=== PATIENT | female | born 1980 | race Caucasian/White ===

== ENCOUNTER → 2020-02-19 09:40 | Outpatient (BNVA) | payer SELFPAY | PROVIDERS: Family Provider Family Medicine; PCP Family Medicine; Visit Provider Family Medicine | DX: H65.191 Other acute nonsuppurative otitis media, right ear (principal); Z78.9 Other specified health status; L30.9 Dermatitis, unspecified; Z13.6 Encounter for screening for cardiovascular disorders; Z13.220 Encounter for screening for lipoid disorders; N95.1 Menopausal and female climacteric states; N92.6 Irregular menstruation, unspecified; Z13.1 Encounter for screening for diabetes mellitus | CPT/HCPCS: 80053; 80061; 83001; 83002; 84443; 88175 ==

== ENCOUNTER → 2020-09-23 13:39 | Outpatient (BNVA) | payer SELFPAY | PROVIDERS: Family Provider Family Medicine; PCP Family Medicine; Visit Provider Specialist | DX: G40.209 Localization-related (focal) (partial) symptomatic epilepsy and epileptic syndromes with complex partial seizures, not intractable, without status epilepticus (principal); G40.909 Epilepsy, unspecified, not intractable, without status epilepticus; F17.210 Nicotine dependence, cigarettes, uncomplicated | CPT/HCPCS: 99215 ==

== ENCOUNTER → 2020-09-24 10:34 | Outpatient (BNVA) | payer SELFPAY | PROVIDERS: Family Provider Family Medicine; PCP Family Medicine; Visit Provider Specialist | DX: G40.209 Localization-related (focal) (partial) symptomatic epilepsy and epileptic syndromes with complex partial seizures, not intractable, without status epilepticus (principal) | CPT/HCPCS: 80053; 80175; 85025; 86140 ==

== ENCOUNTER 2020-11-07 17:26 | Emergency (ER) | payer SELFPAY ==
[2020-11-07 17:31] VITALS: BP 110/78; PULSE 117; RESP 18; TEMP 36.9; O2SAT 99; BMI 22.4
--- NOTE | 2020-11-07 18:01 | XRR_ITS ---
PROCEDURE INFORMATION: Exam: XR Chest Exam date and time: 11/07/2020 6:23 PM Age: 39 years old Clinical indication: Patient HX: Seizure activity today; Additional info: Reduced breath sounds TECHNIQUE: Imaging protocol: XR of the chest. Views: 1 view. COMPARISON: CR Chest 1 [place] [id number] 07/11/2017 10:42 AM FINDINGS: Lungs: Unremarkable. No consolidation. Pleural spaces: Unremarkable. No pleural effusion. No pneumothorax. Heart/Mediastinum: Unremarkable. No cardiomegaly. Bones/joints: Unremarkable. XR/XR chest 1V portable [id number] IMPRESSION: No acute findings.
[2020-11-07 18:06] VITALS: BP 107/76; PULSE 106; RESP 18; O2SAT 99
--- NOTE | 2020-11-07 18:13 | ED_ITS ---
HPI - Seizure General: Chief Complaint: Seizure Stated Complaint: SEIZURE ACTIVITY Time Seen by Provider: 11/07/20 17:47 History of Present Illness: HPI Narrative: The patient is a 39-year old female with past medical history seizure disorder who comes to the ER after 3 seizures today. She had 1 generalized tonic-clonic seizure and later had to absent seizures. She is taking Zonegran 100 mg capsule she is supposed to be taking 4 a day however she is taking 3 a day because she when she takes 4 a day she does not eat or drink much and feels blank does not speak much. Over the past month she said she is lost nearly 20 pounds. Likely a side effect of the medication she says. She was taken off lamotrigine and slowly transition to the Zonegran a few weeks ago. She has not had a generalized seizure in months. Place: Home Associated symptoms: Deny chest pain or confusion Review of Systems General: Reports: 10 or more systems reviewed and unremarkable except in HPI and below Const: Denies: fatigue Eyes: Denies: change in vision, blurry vision or eye redness ENMT: Denies: throat pain, swelling of lips/tongue, ear or mastoid pain or nasal congestion Card: Denies: chest pain, palpitations, irregular heart rhythm, edema, dyspnea on exertion or orthopnea Resp: Denies: dyspnea, productive cough or non-productive cough GI: Denies: abdominal pain, diarrhea or GI cramping : Denies: flank pain, difficulty voiding, urinary frequency or urinary urgency Musc: Denies: neck pain, back pain, extremity pain, joint pain, joint redness, limited range of motion or muscle weakness Skin/Breast: Denies: rash, pruritus, erythema, skin pain or skin tenderness Neuro: Denies: headache(s), numbness in extremities, weakness in extremities, sensory changes, difficulty walking, dizziness, confusion or Slurred speech present Psych: Denies: anxiety or depression Endo: Denies: polyuria All/Imm: Denies: urticaria, throat swelling or tongue swelling PFSH ED PFSH: Medical History (Updated 11/07/20 @ 20:59 by Clayton Brennan MD) Complex partial epilepsy with generalization Surgical History H/O section Social History (Reviewed 10/16/20 @ 14:49 by SURESH Mays Smoking and tobacco status: current every day smoker cigarettes Packs smoked per day: 1 Quit status (tobacco): not considering quitting Alcohol intake: never History of recent travel: No Current gender identity: Female Female Reproductive History: Date of last menstrual period: 05/21/20 Spontaneous abortions: No Physical Exam Const: COMMON NORMALS: no acute distress, average body habitus, patient oriented x3, no limitations, healthy appearing, alert and well nourished GENERAL APPEARANCE: cooperative, comfortable, well kempt and well developed ORIENTATION/CONSCIOUSNESS: Yes awake, Yes oriented to person, Yes oriented to place and Yes oriented to time HENMT: COMMON NORMALS: normocephalic, external ears normal and Normal external nose present HEAD & SCALP: normal to inspection and normocephalic NOSE: Normal external nose present EXTERNAL EAR: Yes external ears normal MOUTH: Normal oral and palatal mucosa present THROAT: posterior oropharynx normal Eye: COMMON NORMALS: Equal, round and reactive pupils present and EOMs intact bilaterally GENERAL EYE: appearance normal, both eyes and all related struc tures PUPIL: Yes Equal, round and reactive pupils present Neck/C-Spine: COMMON NORMALS: full ROM, no lymphadenopathy, no meningeal signs and no JVD GENERAL: Yes normal visual inspection Lymph: LYMPHATIC: no lymphadenopathy noted Chest: COMMONS NORMALS: normal inspection of the chest and normal palpation of entire chest wall Resp: COMMON NORMALS: normal respiratory effort, No retractions, No use of accessory muscles, clear to auscultation bilaterally and percussion normal EFFORT & INSPECTION: Yes able to speak in complete sentences AUSCULTATION: clear to auscultation bilaterally PERCUSSION: percussion normal Cardio: COMMON NORMALS: no JVD, regular rate, regular rhythm, S1 normal heart sound present, S2 normal heart sound present and Peripheral pulses 2+ throughout RATE: regular rate RHYTHM: regular rhythm HEART SOUNDS: S1 normal heart sound present and S2 normal heart sound present PERIPHERAL PULSES: Peripheral pulses 2+ throughout GI: COMMON NORMALS: Normal to inspection, nondistended, normoactive bowel sounds present, Soft to palpation, non-tender and no masses INSPECTION: Yes normal to inspection PALPATION: Yes Soft to palpation : COMMON NORMALS: Yes no CVA tenderness BLADDER/KIDNEY EXAM: Yes no CVA tenderness Back/Pelvis: COMMON NORMALS: no CVA tenderness, thoracic and lumbar spine normal to inspection, no thoracic nor lumbar tenderness and thoraco-lumbar ROM normal Extremity: COMMON NORMALS: normal to inspection, full ROM, capillary refill normal, no joint enlargement and no pedal edema GENERAL: Yes normal exam except as noted Neuro: COMMON NORMALS: patient oriented x3, CN's II-XII intact bilaterally, moves all extremities, no focal motor deficits, no sensory deficits noted and gait normal SENSORIUM/ORIENTATION: Yes alert, Yes oriented to person, Yes oriented to place and Yes oriented to time MENINGEAL SIGNS: Yes no meningeal signs Psych: COMMON NORMALS: mental status grossly normal, Normal thought process present, cooperative, normal affect and speech normal APPEARANCE: Yes well kempt ATTITUDE: Yes calm SPEECH: Yes normal speech THOUGHT PROCESS: Normal thought process present Skin: COMMON NORMALS: no rashes or lesions noted GENERAL SKIN EXAM: no rashes or lesions noted Course Vital Signs: Vital signs: Vital Signs Temperature 98.4 F 11/07/20 17:31 Pulse Rate 80 11/07/20 20:19 Respiratory Rate 16 11/07/20 20:19 Blood Pressure 112/79 11/07/20 20:19 Pulse Oximetry 98 11/07/20 20:19 MDM - Seizure MDM Narrative: Medical decision making narrative: The patient likely had a seizure at home with 2 absence seizure's as well. Her white count is severely low at 1.3 and neutrophil count is severely low. She is neutropenic. This is a likely lesser known side effect of the Zonegran she has been on for the past few weeks. Her white count should pop up now that we will be discontinuing this medication and starting her back on the Lamictal XR 200 mg twice a day that she was taking a few weeks ago. She will call Dr. Spangler Monday to discuss further. ER with worsening symptoms at any time Lab Data: Labs: Lab Results 11/07/20 11/07/20 11/07/20 Range/Units 18:30 18:30 18:30 WBC 1.3 L (4.0-10.0) 10^3/ uL RBC 3.55 L (4.1-5.3) 10^6/u L Hgb 11.1 L (11.5-15.3) g/dL Hct 31.6 L (37.0-47.0) % MCV 89.0 (81-99) fL MCH 31.3 (28.0-34.0) pg MCHC 35.1 (30.0-36.0) g/dL RDW 14.6 (12.1-15.1) % Plt Count 100 L (130-400) 10^3/c mm MPV 12.0 H (7.4-10.4) fL Neut % (Auto) 11.4 % Lymph % (Auto) 46.6 % [place] % (Auto) 35.1 % Eos % (Auto) 2.3 % Baso % (Auto) 2.3 % Neut # (Auto) 0.15 L* (1.8-7.7) 10^3/u L Lymph # (Auto) 0.6 L (0.8-4.8) 10^3/u L [place] # (Auto) 0.5 (0.2-0.9) 10^3/u L Eos # (Auto) 0.0 (0.0-0.8) 10^3/u L Baso # (Auto) 0.0 (0.0-0.1) 10^3/u L Nucleated RBC % (a uto) 0 % Nucleated RBCs # 0.0 /100WBC Sodium 136 (136-145) mmol/L Potassium 3.4 L (3.5-5.1) mmol/L Chloride 105 (98-107) mmol/L Carbon Dioxide 21 L (22-29) mmol/L Anion Gap 13.4 (5-19) BUN 14 (6-20) mg/dL Creatinine 0.8 (0.5-0.9) mg/dL GFR Calculation 79.9 L (90-130) mL/min Glucose 99 (65-115) mg/dL Calculated Osmolal ity 283 L (285-295) mOsm/k g Lactate 0.6 (0.5-2.2) mmol/L Calcium 8.5 (8.5-10.5) mg/dL Total Bilirubin 0.7 (0.15-1.2) mg/dL AST 17 (0-32) U/L ALT 8 (0-33) U/L Alkaline Phosphata se 60 (35-105) IU/L Creatine Kinase 20 L (26-192) U/L Total Protein 6.6 (6.6-8.7) g/dL Albumin 4.3 (3.5-5.2) g/dL Globulin 2.3 (1.3-4.6) g/dL TSH 1.03 (0.27-4.20) uIU/ mL HCG, Qual (Negative) Urine Color (Yellow) Urine Appearance (CLEAR) Urine pH (5-7) Ur Specific Gravit y (1.005-1.030) Urine Protein (Negative) Urine Glucose (UA) (Normal) Urine Ketones (Negative) Urine Blood (Negative) Urine Nitrate (Negative) Urine Bilirubin (Negative) Urine Urobilinogen (Negative) mg/dL Ur Leukocyte Yulia ase (Negative) 11/07/20 11/07/20 Range/Units 18:30 18:32 WBC (4.0-10.0) 10^3/ uL RBC (4.1-5.3) 10^6/u L Hgb (11.5-15.3) g/dL Hct (37.0-47.0) % MCV (81-99) fL MCH (28.0-34.0) pg MCHC (30.0-36.0) g/dL RDW (12.1-15.1) % Plt Count (130-400) 10^3/c mm MPV (7.4-10.4) fL Neut % (Auto) % Lymph % (Auto) % [place] % (Auto) % Eos % (Auto) % Baso % (Auto) % Neut # (Auto) (1.8-7.7) 10^3/u L Lymph # (Auto) (0.8-4.8) 10^3/u L [place] # (Auto) (0.2-0.9) 10^3/u L Eos # (Auto) (0.0-0.8) 10^3/u L Baso # (Auto) (0.0-0.1) 10^3/u L Nucleated RBC % (a uto) % Nucleated RBCs # /100WBC Sodium (136-145) mmol/L Potassium (3.5-5.1) mmol/L Chloride (98-107) mmol/L Carbon Dioxide (22-29) mmol/L Anion Gap (5-19) BUN (6-20) mg/dL Creatinine (0.5-0.9) mg/dL GFR Calculation (90-130) mL/min Glucose (65-115) mg/dL Calculated Osmolal ity (285-295) mOsm/k g Lactate (0.5-2.2) mmol/L Calcium (8.5-10.5) mg/dL Total Bilirubin (0.15-1.2) mg/dL AST (0-32) U/L ALT (0-33) U/L Alkaline Phosphata se (35-105) IU/L Creatine Kinase (26-192) U/L Total Protein (6.6-8.7) g/dL Albumin (3.5-5.2) g/dL Globulin (1.3-4.6) g/dL TSH (0.27-4.20) uIU/ mL HCG, Qual Negative (Negative) Urine Color Yellow (Yellow) Urine Appearance Clear (CLEAR) Urine pH 6.5 (5-7) Ur Specific Gravit y 1.010 (1.005-1.030) Urine Protein Neg (Negative) Urine Glucose (UA) Norm (Normal) Urine Ketones 1+ H (Negative) Urine Blood Neg (Negative) Urine Nitrate Negative (Negative) Urine Bilirubin Neg (Negative) Urine Urobilinogen 1 H (Negative) mg/dL Ur Leukocyte Yulia ase Negative (Negative) Discharge Plan Discharge Patient Disposition: Home Clinical Impression: Epileptic seizure, Leukopenia, Neutropenia Condition: Stable Prescriptions: New Lamictal XR 200 mg tablet extended release 24hr 200 mg PO DAILY Qty: 30 RF: 0 Discontinued lamotrigine [Lamictal XR] 100 mg tablet extended release 24hr 100 mg PO DAILY 14 Days Qty: 14 RF: 0 zonisamide [Zonegran] 100 mg capsule 400 mg PO DAILY Qty: 120 RF: 1 No Action lorazepam [Lorazepam Intensol] 2 mg/mL concentrate 2 mg PO .PRN PRN (Reason: seizure) Qty: 30 RF: 1 Discharge Orders: Discharge ED (Routine); Ordered 11/07/20 Ordered By: Clayton Brennan Referrals: Virginia Meyer MD [Primary Care Provider] - Discharge Diet: Advance as tolerated Discharge Activity: Resume usual activity Patient Instructions: Opioid Safety Activity Restrictions/Additional Instructions: You have had a seizure today. Also your white count is very low at 1.4 and your neutrophils are severely low. This is possibly a lesser known side effect of the Zonegran. I have discussed with Dr. Spangler and we have decided to discontinue that medication and start you back on the Lamictal XR 200 mg taken twice a day as you were taking a few weeks ago. Return to the ER with worsening symptoms otherwise call Dr. Spangler Monday to discuss further. Coding Level of Care Code ED Bar Roller for Victoria Fwd Exam Comprehensive
--- NOTE | 2020-11-07 18:21 | CTR_ITS ---
PROCEDURE INFORMATION: Exam: CT Head Without Contrast Exam date and time: 11/07/2020 6:37 PM Age: 39 years old Clinical indication: Other: Seizures; Additional info: Seizure TECHNIQUE: Imaging protocol: Computed tomography of the head without contrast. Radiation optimization: All CT scans at this facility use at least one of these dose optimization techniques: automated exposure control; mA and/or kV adjustment per patient size (includes targeted exams where dose is matched to clinical indication); or iterative reconstruction. COMPARISON: CT head wo con* [id number] 07/04/2017 3:49 PM RADIATION DOSE METRICS: Total DLP (mGy-cm): 794.22 FINDINGS: Brain: Normal. No hemorrhage. Unremarkable white matter. No mass effect. Cerebral ventricles: No ventriculomegaly. Bones/joints: Unremarkable. No acute fracture. Paranasal sinuses: Visualized sinuses are unremarkable. No fluid levels. Mastoid air cells: Visualized mastoid air cells are well aerated. Soft tissues: Unremarkable. CT/CT head wo con* [id number] IMPRESSION: No acute intracranial abnormality. Radiation Dose CTDIVOL = (mGy): DLP = 794.22 (mGy-cm)
--- NOTE | 2020-11-07 18:29 | PC.NURSE ---
seizure precaution applied
[2020-11-07] MEDS: sodium chloride 0.9% 1,000 ML 999 ML IV (18:44)
[2020-11-07 18:46] LABS: Basophils % 2.3 %; Eosinophils % 2.3 %; Hematocrit 31.6 % (37.0-47.0); Hemoglobin 11.1 g/dL (11.5-15.3); Lymphocytes # 0.6 10^3/uL (0.8-4.8); Lymphocytes % 46.6 %; Mean Corpuscular HGB Conc 35.1 g/dL (30.0-36.0); Mean Corpuscular Hemoglobin 31.3 pg (28.0-34.0); Monocytes # 0.5 10^3/uL (0.2-0.9); Monocytes % 35.1 %; Neutrophils % 11.4 %; Nucleated Red Blood Cells % 0 %; Platelet Count 100 10^3/cmm (130-400); Red Blood Count 3.55 10^6/uL (4.1-5.3); Red Cell Distribution Width 14.6 % (12.1-15.1); White Blood Count 1.3 10^3/uL (4.0-10.0)
[2020-11-07 18:52] LABS: Add Urine Microscopic? NO; Charge for UA Resulting for Rev
[2020-11-07 18:55] LABS: Bilirubin Urine Neg (Negative); Blood Urine Neg (Negative); Glucose Urine UA Norm (Normal); Ketones Urine 1+ (Negative); Leukocyte Esterase Urine Negative (Negative); Nitrate Urine Negative (Negative); Protein Urine Neg (Negative); Urine Appearance Clear (CLEAR); Urine Color Yellow (Yellow); Urobilinogen Urine 1 mg/dL (Negative); pH Urine 6.5 (5-7)
[2020-11-07 19:00] LABS: Lactate (Lactic Acid level) 0.6 mmol/L (0.5-2.2); Neutrophils # 0.15 10^3/uL (1.8-7.7)
[2020-11-07 19:02] LABS: HCG, Serum Qual Negative (Negative)
[2020-11-07 19:11] LABS: Alanine Aminotransferase 8 U/L (0-33); Albumin Level 4.3 g/dL (3.5-5.2); Alkaline Phosphatase 60 IU/L (35-105); Anion Gap 13.4 (5-19); Aspartate Amino Transferase 17 U/L (0-32); Blood Urea Nitrogen 14 mg/dL (6-20); Calcium 8.5 mg/dL (8.5-10.5); Carbon Dioxide 21 mmol/L (22-29); Chloride 105 mmol/L (98-107); Creatine Phosphokinase 20 U/L (26-192); Globulin 2.3 g/dL (1.3-4.6); Glomerular Filtration Rate 79.9 mL/min (90-130); Glucose 99 mg/dL (65-115); Osmolality Calculated 283 mOsm/kg (285-295); Potassium 3.4 mmol/L (3.5-5.1); Sodium 136 mmol/L (136-145); Thyroid Stimulating Hormone 1.03 uIU/mL (0.27-4.20); Total Bilirubin 0.7 mg/dL (0.15-1.2); Total Protein 6.6 g/dL (6.6-8.7)
[2020-11-07 20:19] VITALS: BP 112/79; PULSE 80; RESP 16; O2SAT 98
[2020-11-07] MEDS: lamoTRIgine 100 mg Tablet 200 MG PO (21:32)
[2020-11-07 21:52] VITALS: BP 106/72; PULSE 83; RESP 16; O2SAT 97
== END 2020-11-07 21:54 | disposition home or self-care (01) ==
PROVIDERS: Emergency Provider Family Medicine; PCP Family Medicine
DX: G40.909 Epilepsy, unspecified, not intractable, without status epilepticus (principal); D70.9 Neutropenia, unspecified; F17.210 Nicotine dependence, cigarettes, uncomplicated
CPT/HCPCS: 70450; 71045; 80053; 81003; 82550; 83605; 84443; 84703; 85025; 96360; 99284; J7030

== ENCOUNTER → 2020-11-12 11:46 | Outpatient (BNVA) | payer SELFPAY | PROVIDERS: PCP Family Medicine; Visit Provider Family Medicine | DX: J32.9 Chronic sinusitis, unspecified (principal); D70.9 Neutropenia, unspecified; D70.2 Other drug-induced agranulocytosis; G40.209 Localization-related (focal) (partial) symptomatic epilepsy and epileptic syndromes with complex partial seizures, not intractable, without status epilepticus | CPT/HCPCS: 85007; 85027 ==

== ENCOUNTER → 2020-11-18 10:22 | Outpatient (BNVA) | payer SELFPAY | PROVIDERS: PCP Family Medicine; Visit Provider Family Medicine | DX: D72.819 Decreased white blood cell count, unspecified (principal); D70.2 Other drug-induced agranulocytosis; G40.209 Localization-related (focal) (partial) symptomatic epilepsy and epileptic syndromes with complex partial seizures, not intractable, without status epilepticus | CPT/HCPCS: 85025 ==

== ENCOUNTER → 2020-12-01 15:00 | Outpatient (BNVA) | payer SELFPAY | PROVIDERS: PCP Family Medicine; Visit Provider Family Medicine | DX: Z12.4 Encounter for screening for malignant neoplasm of cervix (principal); N92.1 Excessive and frequent menstruation with irregular cycle; Z72.0 Tobacco use; K64.4 Residual hemorrhoidal skin tags; N76.0 Acute vaginitis; B96.89 Other specified bacterial agents as the cause of diseases classified elsewhere | CPT/HCPCS: 88175 ==

== ENCOUNTER → 2020-12-16 13:41 | Outpatient (BNVA) | payer SELFPAY | PROVIDERS: PCP Family Medicine; Visit Provider Specialist | DX: G40.209 Localization-related (focal) (partial) symptomatic epilepsy and epileptic syndromes with complex partial seizures, not intractable, without status epilepticus (principal); F17.210 Nicotine dependence, cigarettes, uncomplicated | CPT/HCPCS: 99214 ==

== ENCOUNTER → 2020-12-28 13:47 | Outpatient (BNVA) | payer SELFPAY | PROVIDERS: PCP Family Medicine; Visit Provider Obstetrics & Gynecology | DX: N92.1 Excessive and frequent menstruation with irregular cycle (principal); D61.818 Other pancytopenia | CPT/HCPCS: 84443; 85025; 88305 ==

== ENCOUNTER → 2020-12-30 13:27 | Outpatient (BNVA) | payer SELFPAY | PROVIDERS: PCP Family Medicine; Visit Provider Obstetrics & Gynecology | DX: N92.1 Excessive and frequent menstruation with irregular cycle (principal) | CPT/HCPCS: 76830 ==

== ENCOUNTER → 2021-01-18 11:09 | Outpatient (BNVA) | payer SELFPAY | PROVIDERS: PCP Family Medicine; Visit Provider Obstetrics & Gynecology | DX: Z30.9 Encounter for contraceptive management, unspecified (principal); Z30.430 Encounter for insertion of intrauterine contraceptive device | CPT/HCPCS: 81025 ==

== ENCOUNTER → 2021-02-19 14:47 | Outpatient (BNVA) | payer SELFPAY | PROVIDERS: PCP Family Medicine; Visit Provider Obstetrics & Gynecology | DX: N89.8 Other specified noninflammatory disorders of vagina (principal); Z30.431 Encounter for routine checking of intrauterine contraceptive device | CPT/HCPCS: 87481; 87512; 87798; 87799 ==

== ENCOUNTER → 2021-06-14 15:11 | Outpatient (BNVA) | payer MEDICAID, SELFPAY | PROVIDERS: PCP Family Medicine; Visit Provider Specialist | DX: G40.209 Localization-related (focal) (partial) symptomatic epilepsy and epileptic syndromes with complex partial seizures, not intractable, without status epilepticus (principal); G43.709 Chronic migraine without aura, not intractable, without status migrainosus | CPT/HCPCS: 99214 ==

== ENCOUNTER → 2021-08-20 11:56 | Outpatient (BNVA) | payer MEDICAID, SELFPAY | PROVIDERS: PCP Family Medicine; Visit Provider Emergency Medicine | DX: I63.9 Cerebral infarction, unspecified (principal); R05.9 Cough, unspecified | CPT/HCPCS: 71046 ==

== ENCOUNTER 2021-08-23 15:14 | Outpatient (CLI) | payer MEDICAID, SELFPAY ==
[2021-08-23 16:32] LABS: INR 1.01 (0.8-1.2)
[2021-08-25 22:53] LABS: PTT-LA 64 sec (< OR = 40); Prothrombin Time 81 sec (< OR = 45)
[2021-08-26 13:09] LABS: Beta 2 Glycoprotein IGA 11.6 U/mL (<20.0); Beta 2 Glycoprotein IGG 49.7 U/mL (<20.0); Beta 2 Glycoprotein IGM >112.0 U/mL (<20.0)
[2021-08-27 01:08] LABS: B2 Glycoprotein I IGM AB >112.0 U/mL; Beta 2 Glycoprotein I IGA AB 13.6 U/mL; CARDIOLIPIN AB (IGA) 16.2 APL-U/mL; CARDIOLIPIN AB (IGG) 37.9 GPL-U/mL; CARDIOLIPIN AB (IGM) >112.0 MPL-U/mL
== END 2021-08-23 15:15 | disposition home or self-care (01) ==
PROVIDERS: PCP Family Medicine; Visit Provider Specialist
DX: D68.61 Antiphospholipid syndrome (principal); I63.531 Cerebral infarction due to unspecified occlusion or stenosis of right posterior cerebral artery
CPT/HCPCS: 36415; 85610; 85613; 85730; 86146; 86147

== ENCOUNTER → 2021-08-30 00:01 | Outpatient (BNVA) | payer SELFPAY | PROVIDERS: PCP Family Medicine; Referring Provider Specialist; Visit Provider Specialist | DX: I63.531 Cerebral infarction due to unspecified occlusion or stenosis of right posterior cerebral artery (principal) | CPT/HCPCS: 85610 ==

== ENCOUNTER → 2021-09-07 12:48 | Outpatient (BNVA) | payer MEDICAID, SELFPAY | PROVIDERS: PCP Family Medicine; Visit Provider Emergency Medicine | DX: D68.61 Antiphospholipid syndrome (principal); Z79.01 Long term (current) use of anticoagulants; I10 Essential (primary) hypertension; Z86.73 Personal history of transient ischemic attack (TIA), and cerebral infarction without residual deficits | CPT/HCPCS: 80053; 80061; 85025 ==

== ENCOUNTER → 2021-09-15 14:45 | Outpatient (BNVA) | payer SELFPAY | PROVIDERS: PCP Family Medicine; Visit Provider Family Medicine | DX: Z51.81 Encounter for therapeutic drug level monitoring (principal); Z79.01 Long term (current) use of anticoagulants | CPT/HCPCS: 85610 ==

== ENCOUNTER → 2021-09-29 14:07 | Outpatient (BNVA) | payer MEDICAID, SELFPAY | PROVIDERS: PCP Family Medicine; Visit Provider Family Medicine | DX: Z79.01 Long term (current) use of anticoagulants (principal) | CPT/HCPCS: 85610 ==

== ENCOUNTER → 2021-10-18 15:02 | Outpatient (BNVA) | payer MEDICAID, SELFPAY | PROVIDERS: PCP Family Medicine; Visit Provider Family Medicine | DX: Z79.01 Long term (current) use of anticoagulants (principal); D68.61 Antiphospholipid syndrome | CPT/HCPCS: 85610 ==

== ENCOUNTER → 2021-11-02 14:06 | Outpatient (BNVA) | payer SELFPAY | PROVIDERS: PCP Family Medicine; Visit Provider Family Medicine | DX: Z79.01 Long term (current) use of anticoagulants (principal) | CPT/HCPCS: 85610 ==

== ENCOUNTER → 2021-11-23 15:25 | Outpatient (BNVA) | payer MEDICAID, SELFPAY | PROVIDERS: PCP Family Medicine; Visit Provider Family Medicine | DX: Z79.01 Long term (current) use of anticoagulants (principal) | CPT/HCPCS: 85610 ==

== ENCOUNTER → 2021-12-21 14:43 | Outpatient (BNVA) | payer MEDICAID, SELFPAY | PROVIDERS: PCP Family Medicine; Visit Provider Family Medicine | DX: Z79.01 Long term (current) use of anticoagulants (principal) | CPT/HCPCS: 85610 ==

== ENCOUNTER → 2021-12-27 14:19 | Outpatient (BNVA) | payer MEDICAID, SELFPAY | PROVIDERS: PCP Family Medicine; Visit Provider Family Medicine | DX: I10 Essential (primary) hypertension (principal); F32.1 Major depressive disorder, single episode, moderate; Z79.01 Long term (current) use of anticoagulants | CPT/HCPCS: 85610 ==

== ENCOUNTER 2022-01-04 15:36 | Emergency (ER) | payer MEDICAID, SELFPAY ==
[2022-01-04 16:06] VITALS: BP 115/72; PULSE 76; RESP 16; TEMP 37.2; O2SAT 99; BMI 25.0
--- NOTE | 2022-01-04 16:24 | CTR_ITS ---
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 Exam focused on the arteries. 3D rendering (Not supervised by radiologist): MIP and/or 3D reconstructed images were created by the technologist. Radiation optimization: All CT scans at this facility use at least one of these dose optimization techniques: automated exposure control; mA and/or kV adjustment per patient size (includes targeted exams where dose is matched to clinical indication); or iterative reconstruction. Contrast material: OMNIPAQUE 350; Contrast volume: 80 ml; Contrast route: INTRAVENOUS (IV); COMPARISON: CT head w con [id number] 08/13/2021 4:40 PM RADIATION DOSE METRICS: Total DLP (mGy-cm): 1533.95 FINDINGS: ANTERIOR CIRCULATION: Right internal carotid artery: Unremarkable. Intracranial segment is patent with no significant stenosis. No aneurysm. Right middle cerebral artery: Unremarkable. No occlusion or significant stenosis. No aneurysm. Right anterior cerebral artery: Unremarkable. No occlusion or significant stenosis. No aneurysm. Left internal carotid artery: Unremarkable. Intracranial segment is patent with no significant stenosis. No aneurysm. Left middle cerebral artery: Unremarkable. No occlusion or significant stenosis. No aneurysm. Left anterior cerebral artery: Unremarkable. No occlusion or significant stenosis. No aneurysm. POSTERIOR CIRCULATION: Right vertebral artery: Unremarkable. No occlusion or significant stenosis. No aneurysm. Left vertebral artery: Unremarkable. No occlusion or significant stenosis. No aneurysm. Basilar artery: Unremarkable. No occlusion or significant stenosis. No aneurysm. Right posterior cerebral artery: Unremarkable. No occlusion or significant stenosis. No aneurysm. Left posterior cerebral artery: origin of the left posterior cerebral artery. No occlusion or aneurysm. Cavernous Sinus: Dural venous sinuses are patent. Brain: Focal encephalomalacia in the right occipital lobe consistent with a chronic infarct. No pathologic enhancement of the brain. Cerebral ventricles: No ventriculomegaly. Bones/joints: Unremarkable. No acute fracture. Soft tissues: Unremarkable. 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 3D rendering (Not supervised by radiologist): MIP and/or 3D reconstructed images were created by the technologist. Radiation optimization: All CT scans at this facility use at least one of these dose optimization techniques: automated exposure control; mA and/or kV adjustment per patient size (includes targeted exams where dose is matched to clinical indication); or iterative reconstruction. Contrast material: OMNIPAQUE 350; Contrast volume: 80 ml; Contrast route: INTRAVENOUS (IV); COMPARISON: CT head w con [id number] 08/13/2021 4:40 PM RADIATION DOSE METRICS: Total DLP (mGy-cm): 1522.96 FINDINGS: Right common carotid artery: No stenosis. No dissection or occlusion. Right internal carotid artery: No stenosis of the extracranial segment. No dissection or occlusion. Right external carotid artery: No occlusion or stenosis of the origin. Left common carotid artery: No stenosis. No dissection or occlusion. Left internal carotid artery: No stenosis of the extracranial segment. No dissection or occlusion. Left external carotid artery: No occlusion or stenosis of the origin. Right vertebral artery: No stenosis. No dissection or occlusion. Left vertebral artery: No stenosis. No dissection or occlusion. Soft tissues: Soft tissues in the neck and thoracic inlet are unremarkable. Bones/joints: Bones are unremarkable. Lungs: Lung apices are clear. CT/CT angio headneck* [id number] IMPRESSION: 1. No arterial stenosis, occlusion or aneurysm. 2. Chronic infarct in the right occipital lobe. IMPRESSION: No arterial stenosis, occlusion or dissection. REFERENCES: NASCET CRITERIA. The degree of internal carotid artery stenosis is based on NASCET criteria. Normal is no stenosis. Mild is less than 50% stenosis. Moderate is 50-69% stenosis. Severe is 70% to 99% stenosis. Total occlusion is no detectable patent lumen.
--- NOTE | 2022-01-04 16:26 | ED_ITS ---
HPI - Headache General: Chief Complaint: Headache Stated Complaint: Head pain, neck pain Time Seen by Provider: 01/04/22 16:20 History of Present Illness: 41-year-old who is on Coumadin and has history of previous stroke with left-sided vision loss presents due to headache. States th is started yesterday. It was gradual to maximal intensity. Denies any focal weakness numbness or tingling. Denies any new vision or hearing change or vertigo. Denies any trauma. States pain is lateral and she has no midline neck pain. Denies any fever or rash. Review of Systems Narrative: - CONSTITUTIONAL: Denies weight loss, fever and chills. - HEENT: Denies changes in vision and hearing. - RESPIRATORY: Denies SOB and cough. - CV: Denies palpitations and CP. - GI: Denies abdominal pain, nausea, vomiting and diarrhea. - : Denies dysuria and urinary frequency. - MSK: Denies myalgia and joint pain. - SKIN: Denies rash and pruritus. - NEUROLOGICAL: As above - PSYCHIATRIC: Denies suicidal ideation [facility] ED PFSH: Medical History Anticoagulated with warfarin Anticoagulation goal of INR 2 to 3 Complex partial epilepsy with generalization CVA (cerebral vascular accident) HTN (hypertension) Surgical History H/O section H/O dilation and curettage x2 - 2004, 2007 Family History Father Cancer brain cancer - Diabetes Family/Other Thyroid disease x2 Maternal Aunt - unsure Denies family history of Ovarian cyst Clotting disorder Hyperlipidemia Chronic kidney disease (CKD) Suicide Bleeding disorder Hypertension Stroke Social History Smoking and tobacco status: current every day smoker Female Reproductive History: Date of last menstrual period: 05/21/20 Spontaneous abortions: No Physical Exam Narrative: EXAM NARRATIVE: - GENERAL: Alert and oriented x 3. No acute distress. Well-nourished. - EYES: EOMI. Anicteric. - HENT: Atraumatic, no C-spine tenderness. Moist mucous membranes. No scleral icterus. No cervical lymphadenopathy. - LUNGS: Clear to auscultation bilaterally. No accessory muscle use. Equal lung sounds bilaterally. No respiratory distress. - CARDIOVASCULAR: Regular rate and rhythm. No murmur. No JVD. - ABDOMEN: Soft, non-tender and non-distended. Negative CVA tenderness bilaterally, no rebound or guarding, negative Espinoza sign. No palpable masses. - EXTREMITIES: No edema. Non-tender. - SKIN: No rashes or lesions. Warm. - NEUROLOGIC: No myosis or proptosis. No carotid thrills or bruits. No meningismus or focal neurological deficits. CN II-XII grossly intact except for left-sided visual deficit which is chronic - PSYCHIATRIC: Cooperative. Appropriate mood and affect. Course Vital Signs: Vital signs: Vital Signs Temperature 98.9 F 01/04/22 16:06 Pulse Rate 76 01/04/22 16:06 Respiratory Rate 16 01/04/22 16:06 Blood Pressure 115/72 01/04/22 16:06 Pulse Oximetry 99 01/04/22 16:06 [facility] - Headache Medical Decision Making 41-year-old male with history of previous stroke presents due to headache. She has chronic left-sided visual deficit but no acute deficit today. No meningismus. CTA does not reveal any new occlusion hemorrhage or other acute abnormality. Lab work is unremarkable except for INR which is subtherapeutic. She was instructed to follow-up with warfarin clinic tomorrow for adjusting the dose of her warfarin. Headache itself improved with migraine cocktail. There is no meningismus or focal infectious finding. This time not believe LP is warranted. At this time I believe patient would be safe for discharge and outpatient follow-up. Return precautions provided. Plan was reviewed with the patient who expressed understanding. Questions answered. Patient will follow up with PCP. Patient discharged in stable condition. Lab Data : 01/04/22 16:40 01/04/22 16:40 Radiology Impressions Head/Neck CTA 01/04/22 16:24 IMPRESSION: 1. No arterial stenosis, occlusion or aneurysm. 2. Chronic infarct in the right occipital lobe. IMPRESSION: No arterial stenosis, occlusion or dissection. REFERENCES: NASCET CRITERIA. The degree of internal carotid artery stenosis is based on NASCET criteria. Normal is no stenosis. Mild is less than 50% stenosis. Moderate is 50-69% stenosis. Severe is 70% to 99% stenosis. Total occlusion is no detectable patent lumen. Laboratory Results WBC 7.6 10^3/uL (4.0-10.0) 01/04/22 16:40 RBC 4.44 10^6/uL (4.1-5.3) 01/04/22 16:40 Hgb 14.3 g/dL (11.5-15.3) 01/04/22 16:40 Hct 40.7 % (37.0-47.0) 01/04/22 16:40 MCV 91.7 fl (81-99) 01/04/22 16:40 MCH 32.2 pg (28.0-34.0) 01/04/22 16:40 MCHC 35.1 g/dL (30.0-36.0) 01/04/22 16:40 RDW 12.6 % (12.1-15.1) 01/04/22 16:40 Plt Count 206 10^3/cmm (130-400) 01/04/22 16:40 MPV 11.7 fL (7.4-10.4) H 01/04/22 16:40 Neut % (Auto) 77.3 % 01/04/22 16:40 Lymph % (Auto) 14.5 % 01/04/22 16:40 [place] % (Auto) 5.6 % 01/04/22 16:40 Eos % (Auto) 1.4 % 01/04/22 16:40 Baso % (Auto) 0.7 % 01/04/22 16:40 Neut # (Auto) 5.90 10^3/uL (1.8-7.7) 01/04/22 16:40 Lymph # (Auto) 1.1 10^3/uL (0.8-4.8) 01/04/22 16:40 [place] # (Auto) 0.4 10^3/uL (0.2-0.9) 01/04/22 16:40 Eos # (Auto) 0.1 10^3/uL (0.0-0.8) 01/04/22 16:40 Baso # (Auto) 0.1 10^3/uL (0.0-0.1) 01/04/22 16:40 Nucleated RBC % (auto) 0 % 01/04/22 16:40 Nucleated RBCs # 0.0 /100WBC 01/04/22 16:40 PT 16.90 SECONDS (12.1-14.9) H 01/04/22 17:20 INR 1.34 (0.8-1.2) H 01/04/22 17:20 APTT 53.3 SECONDS (23.9-36.7) H 01/04/22 17:20 Sodium 138 mmol/L (136-145) 01/04/22 16:40 Potassium 4.3 mmol/L (3.5-5.1) 01/04/22 16:40 Chloride 102 mmol/L (98-107) 01/04/22 16:40 Carbon Dioxide 26 mmol/L (22-29) 01/04/22 16:40 Anion Gap 14.3 (5-19) 01/04/22 16:40 BUN 8 mg/dL (6-20) 01/04/22 16:40 Creatinine 0.9 mg/dL (0.5-0.9) 01/04/22 16:40 GFR Calculation 69.0 mL/min (90-130) L 01/04/22 16:40 Glucose 84 mg/dL (65-115) 01/04/22 16:40 Calculated Osmolality 284 mOsm/kg (285-295) L 01/04/22 16:40 Calcium 8.7 mg/dL (8.5-10.5) 01/04/22 16:40 Total Bilirubin 0.5 mg/dL (0.15-1.2) 01/04/22 16:40 AST 16 U/L (0-32) 01/04/22 16:40 ALT 11 U/L (0-33) 01/04/22 16:40 Alkaline Phosphatase 97 IU/L (35-105) 01/04/22 16:40 Total Protein 7.8 g/dL (6.6-8.7) 01/04/22 16:40 Albumin 4.6 g/dL (3.5-5.2) 01/04/22 16:40 Globulin 3.2 g/dL (1.3-4.6) 01/04/22 16:40 Discharge Plan Discharge Condition: Stable Prescriptions: No Action Kyleena 17.5 mcg/24 hrs (5 yrs) 19.5 mg intrauterine device See Rx Instructions .ROUTE .COMPLEX 0RF Rx Instructions: intrauterinely DIRECTED atorvastatin 40 mg tablet 40 mg PO DAILY Qty: 90 1RF aspirin 325 mg tablet 81 mg PO DAILY 0RF warfarin 5 mg tablet 5 mg PO DAILY Qty: 90 1RF Protocol: Dose Management Condition: Monday Dose/Route: 5 mg Instruction: 1 x 5 mg tablet Condition: Monday Dose/Route: 2.5 mg Instruction: 0.5 x 5 mg tablets Condition: Monday Dose/Route: 5 mg Instruction: 1 x 5 mg tablet Condition: Monday Dose/Route: 5 mg Instruction: 1 x 5 mg tablet Condition: Dose/Route: 2.5 mg Instruction: 0.5 x 5 mg tablets Condition: Monday Dose/Route: 5 mg Instruction: 1 x 5 mg tablet Condition: Monday Dose/Route: 5 mg Instruction: 1 x 5 mg tablet Protocol Text: Adjustment Start Date: Monday12/27/21 INR Value: 22.4 Seconds INR Date: 12/27/21 Recheck Date: 01/10/22 Rx Instructions: as directed by losartan 25 mg tablet 25 mg PO DAILY 90 Days Qty: 90 0RF sertraline 25 mg tablet 25 mg PO DAILY 30 Days Qty: 30 2RF Lorazepam Intensol 2 mg/mL concentrate See Rx Instructions .ROUTE .COMPLEX PRN (Reason: seizure) 0RF Rx Instructions: 2 mg orally AT ONSET OF SIEZURE - MAX 4 MG A DAY Lamictal XR 200 mg tablet extended release 24hr 200 mg PO BID 0RF Referrals: Virginia Meyer MD [Primary Care Provider] - Coding Level of Care Code ED Senior Solutions Consultant for Victoria Arcos
[2022-01-04 16:57] LABS: Basophils # 0.1 10^3/uL (0.0-0.1); Basophils % 0.7 %; Eosinophils # 0.1 10^3/uL (0.0-0.8); Eosinophils % 1.4 %; Hematocrit 40.7 % (37.0-47.0); Hemoglobin 14.3 g/dL (11.5-15.3); Lymphocytes # 1.1 10^3/uL (0.8-4.8); Lymphocytes % 14.5 %; Mean Corpuscular HGB Conc 35.1 g/dL (30.0-36.0); Mean Corpuscular Hemoglobin 32.2 pg (28.0-34.0); Mean Corpuscular Volume 91.7 fl (81-99); Mean Platelet Volume 11.7 fL (7.4-10.4); Monocytes # 0.4 10^3/uL (0.2-0.9); Monocytes % 5.6 %; Neutrophils % 77.3 %; Nucleated Red Blood Cells % 0 %; Platelet Count 206 10^3/cmm (130-400); Red Blood Count 4.44 10^6/uL (4.1-5.3); Red Cell Distribution Width 12.6 % (12.1-15.1); White Blood Count 7.6 10^3/uL (4.0-10.0)
[2022-01-04] MEDS: iohexol 350 mg/mL 100 mL Btl IV (17:03)
[2022-01-04 17:06] LABS: Albumin Level 4.6 g/dL (3.5-5.2); Alkaline Phosphatase 97 IU/L (35-105); Blood Urea Nitrogen 8 mg/dL (6-20); Calcium 8.7 mg/dL (8.5-10.5); Carbon Dioxide 26 mmol/L (22-29); Chloride 102 mmol/L (98-107); Globulin 3.2 g/dL (1.3-4.6); Glucose 84 mg/dL (65-115); Osmolality Calculated 284 mOsm/kg (285-295); Sodium 138 mmol/L (136-145); Total Bilirubin 0.5 mg/dL (0.15-1.2); Total Protein 7.8 g/dL (6.6-8.7)
[2022-01-04 17:10] LABS: Anion Gap 14.3 (5-19); Aspartate Amino Transferase 16 U/L (0-32); Potassium 4.3 mmol/L (3.5-5.1)
[2022-01-04 17:11] LABS: Alanine Aminotransferase 11 U/L (0-33)
[2022-01-04] MEDS: metoclopramide 5 mg/mL SDV 2 mL 10 MG IVP (17:30)
[2022-01-04] MEDS: sodium chloride 0.9% 250 ML IV (17:30)
[2022-01-04] MEDS: diphenhydrAMINE 50 mg/mL SDV 1mL 25 MG IVP (17:30)
[2022-01-04 17:45] LABS: INR 1.34 (0.8-1.2)
[2022-01-04 17:46] LABS: Partial Thromboplastin Time 53.3 SECONDS (23.9-36.7)
[2022-01-04 18:23] VITALS: BP 103/72; PULSE 71; RESP 16; O2SAT 99
== END 2022-01-04 18:23 | disposition home or self-care (01) ==
PROVIDERS: Emergency Provider Emergency Medicine; PCP Family Medicine
DX: R51.9 Headache, unspecified (principal); Z79.82 Long term (current) use of aspirin; Z79.01 Long term (current) use of anticoagulants; Z86.73 Personal history of transient ischemic attack (TIA), and cerebral infarction without residual deficits; I10 Essential (primary) hypertension; F17.210 Nicotine dependence, cigarettes, uncomplicated
CPT/HCPCS: 70496; 70498; 80053; 85025; 85610; 85730; 96361; 96374; 96375; 99284; J1200; J2765; J7050; Q9967

== ENCOUNTER → 2022-01-12 13:40 | Outpatient (BNVA) | payer BC, SELFPAY | PROVIDERS: PCP Family Medicine; Visit Provider Family Medicine | DX: Z79.01 Long term (current) use of anticoagulants (principal) | CPT/HCPCS: 85610 ==

== ENCOUNTER 2022-01-13 15:10 | Emergency (ER) | payer BC, MEDICAID, SELFPAY ==
[2022-01-13 15:36] VITALS: BP 118/82; PULSE 76; RESP 14; TEMP 36.3; O2SAT 98
--- NOTE | 2022-01-13 17:18 | W.ED.ABDPA2 ---
HPI - Abdominal Pain General: Chief Complaint: Abdominal Pain Stated Complaint: abd pain/black stool Time Seen by Provider: 01/13/22 17:14 History of Present Illness: 41-year-old female comes in today for complaints of some epigastric abdominal pain starting last night. Patient did note some dark stools today. Patient reports no previous history of abdominal problems. Patient does have a history of a clotting disorder. Patient does take warfarin and aspirin routinely. Associated Symptoms: Reports change in stool character and nausea; Denies diarrhea, fever(s) and vomiting Related Data: Date of Last Menstrual Period: 05/21/20 Review of Systems Const: Denies: fever(s) Card: Denies: chest pain Resp: Denies: dyspnea GI: Reports: abdominal pain, nausea and change in stool character; Denies: vomiting or diarrhea Skin/Breast: Denies: rash PFSH ED PFSH: Medical History Anticoagulated with warfarin Anticoagulation goal of INR 2 to 3 Complex partial epilepsy with generalization CVA (cerebral vascular accident) HTN (hypertension) Surgical History H/O section H/O dilation and curettage x2 - 2007 Family History Father Cancer brain cancer - Diabetes Family/Other Thyroid disease x2 Maternal Aunt - unsure Denies family history of Ovarian cyst Clotting disorder Hyperlipidemia Chronic kidney disease (CKD) Suicide Bleeding disorder Hypertension Stroke Social History Smoking and tobacco status: current every day smoker Female Reproductive History: Date of last menstrual period: 05/21/20 Spontaneous abortions: No Physical Exam Const: COMMON NORMALS: alert HENMT: COMMON NORMALS: normocephalic HEAD & SCALP: normocephalic Neck/C-Spine: COMMON NORMALS: full ROM Resp: COMMON NORMALS: normal respiratory effort Cardio: COMMON NORMALS: regular rate RATE: regular rate GI: COMMON NORMALS: Soft to palpation AUSCULTATION: Yes normoactive bowel sounds PALPATION: Yes Soft to palpation and Yes Tenderness to palpation present (GI) (Epigastric) Extremity: COMMON NORMALS: normal to inspection Neuro: SENSORIUM/ORIENTATION: Yes alert Skin: COMMON NORMALS: no rashes or lesions noted GENERAL SKIN EXAM: no rashes or lesions noted Course Vital Signs: Vital signs: Vital Signs Temperature 97.4 F L 01/13/22 15:36 Pulse Rate 74 01/13/22 18:08 Respiratory Rate 18 01/13/22 18:08 Blood Pressure 123/89 01/13/22 18:08 Pulse Oximetry 95 01/13/22 18:08 MDM - Abdominal Pain Medical Decision Making 41-year-old female comes in today for complaints of black stools. On exam patient appears nontoxic. Patient has some mild tenderness on palpation epigastrium. Bowel sounds are present. Skin is warm and dry. Vital signs are normal. Differential diagnosis includes but not limited to gastritis, peptic ulcer disease, colitis/enteritis. Laboratory values noted no significant decreased white blood cell count. CMP was unremarkable. Hemoglobin is 14.3. CT of the abdomen and pelvis indicated no acute abnormality or signs of perforation. Patient does take aspirin routinely with her Coumadin suspect some gastritis secondary to the use of NSAIDs. We will arrange for patient to have endoscopy. Patient was given pantoprazole in the emergency room, and some Zofran with morphine for her pain and discomfort. Patient will be continued on pantoprazole outpatient and was given a prescription for 6 tablets of hydrocodone and 6 tablets of Zofran as needed for symptoms. Patient reported understanding of care plan need for follow-up or return to the ER. Lab Data : 01/13/22 17:24 01/13/22 17:24 Labs/Radiology: Radiology Impressions Abdomen/Pelvis CT 01/13/22 17:24 IMPRESSION: No acute findings. Laboratory Results WBC 8.4 10^3/uL (4.0-10.0) 01/13/22 17:24 RBC 4.51 10^6/uL (4.1-5.3) 01/13/22 17:24 Hgb 14.3 g/dL (11.5-15.3) 01/13/22 17:24 Hct 42.0 % (37.0-47.0) 01/13/22 17:24 MCV 93.1 fl (81-99) 01/13/22 17:24 MCH 31.7 pg (28.0-34.0) 01/13/22 17:24 MCHC 34.0 g/dL (30.0-36.0) 01/13/22 17:24 RDW 12.6 % (12.1-15.1) 01/13/22 17:24 Plt Count 193 10^3/cmm (130-400) 01/13/22 17:24 MPV 12.4 fL (7.4-10.4) H 01/13/22 17:24 Neut % (Auto) 78.1 % 01/13/22 17:24 Lymph % (Auto) 15.2 % 01/13/22 17:24 [place] % (Auto) 4.5 % 01/13/22 17:24 Eos % (Auto) 1.5 % 01/13/22 17:24 Baso % (Auto) 0.2 % 01/13/22 17:24 Neut # (Auto) 6.57 10^3/uL (1.8-7.7) 01/13/22 17:24 Lymph # (Auto) 1.3 10^3/uL (0.8-4.8) 01/13/22 17:24 [place] # (Auto) 0.4 10^3/uL (0.2-0.9) 01/13/22 17:24 Eos # (Auto) 0.1 10^3/uL (0.0-0.8) 01/13/22 17:24 Baso # (Auto) 0.0 10^3/uL (0.0-0.1) 01/13/22 17:24 Nucleated RBC % (auto) 0 % 01/13/22 17:24 Nucleated RBCs # 0.0 /100WBC 01/13/22 17:24 PT 28.30 SECONDS (12.1-14.9) H 01/13/22 17:24 INR 2.62 (0.8-1.2) H 01/13/22 17:24 APTT 58.4 SECONDS (23.9-36.7) H 01/13/22 17:24 Sodium 139 mmol/L (136-145) 01/13/22 17:24 Potassium 3.3 mmol/L (3.5-5.1) L 01/13/22 17:24 Chloride 103 mmol/L (98-107) 01/13/22 17:24 Carbon Dioxide 26 mmol/L (22-29) 01/13/22 17:24 Anion Gap 13.3 (5-19) 01/13/22 17:24 BUN 6 mg/dL (6-20) 01/13/22 17:24 Creatinine 0.9 mg/dL (0.5-0.9) 01/13/22 17:24 GFR Calculation 69.0 mL/min (90-130) L 01/13/22 17:24 Glucose 87 mg/dL (65-115) 01/13/22 17:24 Calculated Osmolality 285 mOsm/kg (285-295) 01/13/22 17:24 Calcium 9.0 mg/dL (8.5-10.5) 01/13/22 17:24 Total Bilirubin 0.4 mg/dL (0.15-1.2) 01/13/22 17:24 AST 14 U/L (0-32) 01/13/22 17:24 ALT 10 U/L (0-33) 01/13/22 17:24 Alkaline Phosphatase 105 IU/L (35-105) 01/13/22 17:24 Total Protein 7.7 g/dL (6.6-8.7) 01/13/22 17:24 Albumin 4.5 g/dL (3.5-5.2) 01/13/22 17:24 Globulin 3.2 g/dL (1.3-4.6) 01/13/22 17:24 Lipase 42 U/L (13-60) 01/13/22 17:24 HCG, Qual Negative (Negative) 01/13/22 17:24 Urine Color Yellow (Yellow) 01/13/22 17:28 Urine Appearance Clear (CLEAR) 01/13/22 17:28 Urine pH 6 (5-7) 01/13/22 17:28 Ur Specific [place] 1.005 (1.005-1.030) 01/13/22 17:28 Urine Protein Neg (Negative) 01/13/22 17:28 Urine Glucose (UA) Norm (Normal) 01/13/22 17:28 Urine Ketones Negative (Negative) 01/13/22 17:28 Urine Blood Neg (Negative) 01/13/22 17:28 Urine Nitrate Negative (Negative) 01/13/22 17:28 Urine Bilirubin Neg (Negative) 01/13/22 17:28 Urine Urobilinogen Norm mg/dL (Negative) 01/13/22 17:28 Ur Leukocyte Esterase Negative (Negative) 01/13/22 17:28 Discharge Plan Discharge Patient Disposition: Home Clinical Impression: Stool color black GI bleed Qualifiers: GI bleed type/associated pathology: melena Qualified Code(s): K92.1 - Melena Condition: Stable Prescriptions: New pantoprazole 40 mg tablet,delayed release (DR/EC) 40 mg PO DAILY Qty: 30 2RF hydrocodone-acetaminophen 5-325 mg tablet 1 tab PO Q8H PRN (Reason: pain (scale score 7-10)) Qty: 6 0RF ondansetron 4 mg tablet,disintegrating 4 mg PO Q8H PRN (Reason: nausea and vomiting) Qty: 6 0RF No Action Kyleena 17.5 mcg/24 hrs (5 yrs) 19.5 mg intrauterine device See Rx Instructions .ROUTE .COMPLEX 0RF Rx Instructions: intrauterinely DIRECTED atorvastatin 40 mg tablet 40 mg PO DAILY Qty: 90 1RF aspirin 325 mg tablet 81 mg PO DAILY 0RF warfarin 5 mg tablet 5 mg PO DAILY Qty: 90 1RF Protocol: Dose Management Condition: Monday Dose/Route: 5 mg Instruction: 1 x 5 mg tablet Condition: Monday Dose/Route: 5 mg Instruction: 1 x 5 mg tablet Condition: Monday Dose/Route: 5 mg Instruction: 1 x 5 mg tablet Condition: Monday Dose/Route: 5 mg Instruction: 1 x 5 mg tablet Condition: Dose/Route: 5 mg Instruction: 1 x 5 mg tablet Condition: Monday Dose/Route: 5 mg Instruction: 1 x 5 mg tablet Condition: Monday Dose/Route: 5 mg Instruction: 1 x 5 mg tablet Protocol Text: Adjustment Start Date: Monday01/12/22 INR Value: 32.8 Seconds INR Date: 01/12/22 Recheck Date: 01/26/22 Rx Instructions: as directed by losartan 25 mg tablet 25 mg PO DAILY 90 Days Qty: 90 0RF sertraline 25 mg tablet 25 mg PO DAILY 30 Days Qty: 30 2RF lorazepam [Lorazepam Intensol] 2 mg/mL concentrate See Rx Instructions .ROUTE .COMPLEX PRN (Reason: seizure) 0RF Rx Instructions: 2 mg orally AT ONSET OF SIEZURE - MAX 4 MG A DAY lamotrigine [Lamictal XR] 200 mg tablet extended release 24hr 200 mg PO BID 0RF Discharge Orders: Discharge ED (Routine); Ordered 01/13/22 Ordered By: Isiah Mosqueda Referrals: Virginia Meyer MD [Primary Care Provider] - Discharge Diet: Usual diet Discharge Activity: Limit activity as instructed Patient Instructions: Gastrointestinal Bleeding (ED), Opioid Safety Activity Restrictions/Additional Instructions: Hold aspirin for the next 5 days. Take pantoprazole 40 mg 1 tablet 30 minutes before your first meal of the day. Continue with routine care otherwise as noted. Follow-up with primary care in 1 week for recheck. Return to ER for fever greater than 100.4, red blood in vomit or stool, lightheadedness or new concerns. Case management will contact you with follow-up appointment for your endoscopy procedure for further evaluation. Coding Level of Care Code ED Object Oriented Programmer for Victoria Arcos
--- NOTE | 2022-01-13 17:24 | CTR_ITS ---
PROCEDURE INFORMATION: Exam: CT Abdomen And Pelvis Without Contrast Exam date and time: 01/13/2022 6:24 PM Age: 41 years old Clinical indication: Abdominal pain; Generalized; Prior surgery; Surgery type: Csection; Patient HX: Diffuse abd pain with tarry stools; Additional info: Black stools, R/O visceral perforation TECHNIQUE: Imaging protocol: Computed tomography of the abdomen and pelvis without contrast. Radiation optimization: All CT scans at this facility use at least one of these dose optimization techniques: automated exposure control; mA and/or kV adjustment per patient size (includes targeted exams where dose is matched to clinical indication); or iterative reconstruction. COMPARISON: US transvaginal [id number] 12/30/2020 1:29 PM RADIATION DOSE METRICS: Total DLP (mGy-cm): 975.55 FINDINGS: Liver: Normal. No mass. Gallbladder and bile ducts: Normal. No calcified stones. No ductal dilation. Pancreas: Normal. No ductal dilation. Spleen: Normal. No splenomegaly. Adrenal glands: Normal. No mass. Kidneys and ureters: Normal. No hydronephrosis. Stomach and bowel: Unremarkable. No obstruction. No mucosal thickening. Appendix: No evidence of appendicitis. Intraperitoneal space: Unremarkable. No free air. No significant fluid collection. Vasculature: Unremarkable. No abdominal aortic aneurysm. Lymph nodes: Unremarkable. No enlarged lymph nodes. Urinary bladder: Unremarkable as visualized. Reproductive: Intrauterine IUD noted in expected positioning. Bones/joints: No acute fracture. Soft tissues: Unremarkable. CT/CT abdomen pelvis [facility] [id number] IMPRESSION: No acute findings.
[2022-01-13 17:58] LABS: Add Urine Microscopic? NO; Charge for UA Resulting for Rev
[2022-01-13 18:00] LABS: Basophils % 0.2 %; Eosinophils # 0.1 10^3/uL (0.0-0.8); Eosinophils % 1.5 %; Hemoglobin 14.3 g/dL (11.5-15.3); Lymphocytes # 1.3 10^3/uL (0.8-4.8); Lymphocytes % 15.2 %; Mean Corpuscular Hemoglobin 31.7 pg (28.0-34.0); Mean Corpuscular Volume 93.1 fl (81-99); Mean Platelet Volume 12.4 fL (7.4-10.4); Monocytes # 0.4 10^3/uL (0.2-0.9); Monocytes % 4.5 %; Neutrophils # 6.57 10^3/uL (1.8-7.7); Neutrophils % 78.1 %; Nucleated Red Blood Cells % 0 %; Platelet Count 193 10^3/cmm (130-400); Red Blood Count 4.51 10^6/uL (4.1-5.3); Red Cell Distribution Width 12.6 % (12.1-15.1); White Blood Count 8.4 10^3/uL (4.0-10.0)
[2022-01-13] MEDS: pantoprazole 40 mg SDV 80 MG IVP (18:01)
[2022-01-13 18:02] LABS: INR 2.62 (0.8-1.2)
[2022-01-13] MEDS: sodium chloride 0.9% 500 ML 999 ML IV (18:02)
[2022-01-13 18:03] LABS: Partial Thromboplastin Time 58.4 SECONDS (23.9-36.7)
[2022-01-13 18:06] LABS: HCG, Serum Qual Negative (Negative)
[2022-01-13 18:06] LABS: Bilirubin Urine Neg (Negative); Blood Urine Neg (Negative); Glucose Urine UA Norm (Normal); Ketones Urine Negative (Negative); Leukocyte Esterase Urine Negative (Negative); Nitrate Urine Negative (Negative); Protein Urine Neg (Negative); Specific Gravity, Urine 1.005 (1.005-1.030); Urine Appearance Clear (CLEAR); Urine Color Yellow (Yellow); Urobilinogen Urine Norm (Negative); pH Urine 6 (5-7)
[2022-01-13 18:08] VITALS: BP 123/89; PULSE 74; RESP 18; O2SAT 95
[2022-01-13 18:10] LABS: Alanine Aminotransferase 10 U/L (0-33); Albumin Level 4.5 g/dL (3.5-5.2); Alkaline Phosphatase 105 IU/L (35-105); Anion Gap 13.3 (5-19); Aspartate Amino Transferase 14 U/L (0-32); Blood Urea Nitrogen 6 mg/dL (6-20); Carbon Dioxide 26 mmol/L (22-29); Chloride 103 mmol/L (98-107); Creatinine Clr Calc Pharmacy 83.9033; Globulin 3.2 g/dL (1.3-4.6); Glucose 87 mg/dL (65-115); Lipase 42 U/L (13-60); Osmolality Calculated 285 mOsm/kg (285-295); Potassium 3.3 mmol/L (3.5-5.1); Sodium 139 mmol/L (136-145); Total Bilirubin 0.4 mg/dL (0.15-1.2); Total Protein 7.7 g/dL (6.6-8.7)
[2022-01-13 19:36] VITALS: RESP 16
[2022-01-13] MEDS: morphine 4 mg/mL SDV 1 mL 2 MG IVP (19:36)
[2022-01-13] MEDS: ondansetron 2 mg/ML SDV 2 mL 4 MG IVP (19:36)
[2022-01-13] MEDS: alum-mag-hydroxide-sime 30 mL UDC PO (19:37)
[2022-01-13 19:48] VITALS: BP 120/80; PULSE 76; RESP 16; O2SAT 98
--- NOTE | 2022-01-17 14:10 | DCPLANNER ---
Addendum entered by Avani Rae 03/04/22 16:18: Patient had a follow up appointment scheduled for 02.17.22 with general surgery - patient did attend appointment. Addendum entered by Avani Rae 01/31/22 18:09: Patient has a follow up appointment scheduled for February at 1:[address] Rivas at general surgery. Clinic will call patient with appointment information. Original Note: nursing services manager had message to schedule a follow up appointment for patient with general surgery. nursing services manager sent patients information to the front office staff at general surgery. Patients information will be printed and reviewed. Clinic will call patient with appointment information.
== END 2022-01-13 19:54 | disposition home or self-care (01) ==
PROVIDERS: Physician Assistant; Emergency Provider Nurse Practitioner Family; PCP Family Medicine
DX: K92.1 Melena (principal)
CPT/HCPCS: 74176; 80053; 81003; 83690; 84703; 85025; 85610; 85730; 96374; 96375; 99285; C9113; J2270; J2405; J7040

== ENCOUNTER → 2022-01-17 15:30 | Outpatient (BNVA) | payer BC, MEDICAID, SELFPAY | PROVIDERS: PCP Family Medicine; Visit Provider Specialist | DX: G40.119 Localization-related (focal) (partial) symptomatic epilepsy and epileptic syndromes with simple partial seizures, intractable, without status epilepticus (principal); D68.61 Antiphospholipid syndrome; I69.398 Other sequelae of cerebral infarction; H53.9 Unspecified visual disturbance; F41.1 Generalized anxiety disorder; Z79.01 Long term (current) use of anticoagulants | CPT/HCPCS: 99214 ==

== ENCOUNTER → 2022-01-21 10:12 | Outpatient (BNVA) | payer BC, MEDICAID, SELFPAY | PROVIDERS: PCP Family Medicine; Visit Provider Emergency Medicine | DX: B34.9 Viral infection, unspecified (principal); Z20.822 Contact with and (suspected) exposure to COVID-19 | CPT/HCPCS: 87400; 87635 ==

== ENCOUNTER → 2022-01-31 12:37 | Outpatient (BNVA) | payer BC, MEDICAID, SELFPAY | PROVIDERS: PCP Family Medicine; Visit Provider Emergency Medicine | DX: Z51.81 Encounter for therapeutic drug level monitoring (principal); Z79.01 Long term (current) use of anticoagulants | CPT/HCPCS: 85610 ==

== ENCOUNTER → 2022-02-17 12:56 | Outpatient (BNVA) | payer BC, MEDICAID, SELFPAY | PROVIDERS: PCP Family Medicine; Visit Provider Surgery | DX: K92.1 Melena (principal) | CPT/HCPCS: 99203 ==

== ENCOUNTER → 2022-02-28 07:48 | Outpatient (BNVA) | payer BC, MEDICAID, SELFPAY | PROVIDERS: PCP Family Medicine; Referring Provider Specialist; Visit Provider Specialist | DX: G40.109 Localization-related (focal) (partial) symptomatic epilepsy and epileptic syndromes with simple partial seizures, not intractable, without status epilepticus (principal) | CPT/HCPCS: 95812; 95816 ==

== ENCOUNTER → 2022-03-04 13:19 | Outpatient (BNVA) | payer BC, MEDICAID, SELFPAY | PROVIDERS: PCP Family Medicine; Visit Provider Family Medicine | DX: I63.9 Cerebral infarction, unspecified (principal); Z51.81 Encounter for therapeutic drug level monitoring; Z79.01 Long term (current) use of anticoagulants | CPT/HCPCS: 85610 ==

== ENCOUNTER → 2022-03-11 15:02 | Outpatient (BNVA) | payer BC, MEDICAID, SELFPAY | PROVIDERS: PCP Family Medicine; Visit Provider Family Medicine | DX: Z51.81 Encounter for therapeutic drug level monitoring (principal); Z79.01 Long term (current) use of anticoagulants | CPT/HCPCS: 85610 ==

== ENCOUNTER → 2022-03-17 14:09 | Outpatient (BNVA) | payer BC, MEDICAID, SELFPAY | PROVIDERS: PCP Family Medicine; Visit Provider Family Medicine | DX: I63.9 Cerebral infarction, unspecified (principal); Z79.01 Long term (current) use of anticoagulants; F32.1 Major depressive disorder, single episode, moderate; K92.1 Melena; I10 Essential (primary) hypertension; G40.109 Localization-related (focal) (partial) symptomatic epilepsy and epileptic syndromes with simple partial seizures, not intractable, without status epilepticus; Z51.81 Encounter for therapeutic drug level monitoring | CPT/HCPCS: 85610 ==

== ENCOUNTER → 2022-04-21 18:11 | Outpatient (BNVA) | payer BC, MEDICAID, SELFPAY | PROVIDERS: PCP Family Medicine; Visit Provider Family Medicine | DX: Z51.81 Encounter for therapeutic drug level monitoring (principal); Z79.01 Long term (current) use of anticoagulants | CPT/HCPCS: 85610 ==

== ENCOUNTER → 2022-04-28 12:13 | Outpatient (BNVA) | payer BC, MEDICAID, SELFPAY | PROVIDERS: PCP Family Medicine; Visit Provider Family Medicine | DX: Z51.81 Encounter for therapeutic drug level monitoring (principal); Z79.01 Long term (current) use of anticoagulants | CPT/HCPCS: 85610 ==

== ENCOUNTER → 2022-05-14 16:12 | Outpatient (BNVA) | payer BC, SELFPAY | PROVIDERS: PCP Family Medicine; Referring Provider Family Medicine; Visit Provider Family Medicine | DX: Z51.81 Encounter for therapeutic drug level monitoring (principal); Z79.01 Long term (current) use of anticoagulants | CPT/HCPCS: 85610 ==

== ENCOUNTER → 2022-06-09 15:58 | Outpatient (BNVA) | payer BC, SELFPAY | PROVIDERS: PCP Family Medicine; Visit Provider Family Medicine | DX: Z51.81 Encounter for therapeutic drug level monitoring (principal); Z79.01 Long term (current) use of anticoagulants | CPT/HCPCS: 85610 ==

== ENCOUNTER → 2022-06-28 16:03 | Outpatient (BNVA) | payer BC, SELFPAY | PROVIDERS: PCP Family Medicine; Visit Provider Family Medicine | DX: Z79.01 Long term (current) use of anticoagulants (principal) | CPT/HCPCS: 85610 ==

== ENCOUNTER 2022-07-08 15:16 | Emergency (ER) | payer BC, MEDICAID, SELFPAY ==
[2022-07-08 15:30] VITALS: BP 124/86; PULSE 93; RESP 18; TEMP 36.8; O2SAT 98; BMI 25.8
--- NOTE | 2022-07-08 17:33 | USR_ITS ---
PROCEDURE INFORMATION: Exam: US Duplex Left Lower Extremity Veins, Limited Exam date and time: 07/08/2022 6:06 PM Age: 41 years old Clinical indication: Pain; Leg, lower; Left; Additional info: Possible dvt TECHNIQUE: Imaging protocol: Real-time Duplex ultrasound of the Left Lower Extremity with 2-D lanza scale, color Doppler flow and spectral waveform analysis with image documentation. Limited exam focused on the left lower extremity veins. COMPARISON: US transvaginal [id number] 12/30/2020 1:29 PM FINDINGS: Left deep veins: Unremarkable. The common femoral, femoral, proximal profunda femoral and popliteal veins are patent without thrombus. Normal Doppler waveforms. Normal compressibility and/or augmentation response. Left superficial veins: Unremarkable. Saphenofemoral junction is patent without thrombus. Soft tissues: Unremarkable. US/CV venous duplex [facility] [id number] IMPRESSION: No evidence of deep vein thrombosis.
[2022-07-08 17:57] VITALS: BP 115/79; PULSE 78; RESP 18; TEMP 36.7; O2SAT 98
--- NOTE | 2022-07-08 20:55 | ED_ITS ---
HPI - Extremity Problem General: Chief complaint: Extremity Problem,Nontraumatic Stated complaint: [facility] office sent for poss. blood clot Time Seen by Provider: 07/08/22 19:55 Source: patient and family Mode of arrival: ambulatory Limitations: no limitations History of Present Illness: Patient presents emergency department today accompanied by her for evaluation treatment of left posterior knee pain. Patient states she noticed onset of pain today and, with a history of blood clots in the past and clotting disorder, she contacted her primary care doctor who recommended she come to the emergency department for evaluation of DVT. Patient denies any injury to the knee. She denies any falls or previous surgeries. Patient denies calf pain or anterior left knee pain. She has not noticed any significant swelling in the lower extremity. She denies shortness of breath or chest pains. Patient's chart review indicates active medication list including warfarin and a full dose aspirin. Review of Systems General: Reports: 10 or more systems reviewed and unremarkable except in HPI and below Musc: Reports: joint pain; Denies: extremity swelling or muscle cramps PFSH ED PFSH: Medical History Anticoagulated with warfarin Anticoagulation goal of INR 2 to 3 Complex partial epilepsy with generalization CVA (cerebral vascular accident) HTN (hypertension) Psychiatric care Surgical History H/O section H/O dilation and curettage x2 - 2007 Family History Father Cancer brain cancer - Diabetes Family/Other Thyroid disease x2 Maternal Aunt - unsure Denies family history of Ovarian cyst Clotting disorder Hyperlipidemia Chronic kidney disease (CKD) Suicide Bleeding disorder Hypertension Stroke Social History Smoking and tobacco status: current every day smoker Female Reproductive History: Date of last menstrual period: 05/21/20 Spontaneous abortions: No Physical Exam Const: COMMON NORMALS: no acute distress, patient oriented x3 and alert HENMT: COMMON NORMALS: normocephalic, atraumatic and hearing grossly normal bilaterally HEAD & SCALP: normocephalic and atraumatic Eye: COMMON NORMALS: Equal, round and reactive pupils present, EOMs intact bilaterally and conjunctivae normal CONJUNCTIVA: Yes conjunctivae normal PUPIL: Yes Equal, round and reactive pupils present Neck/C-Spine: COMMON NORMALS: full ROM and no JVD Lymph: LYMPHATIC: no lymphadenopathy noted Resp: COMMON NORMALS: normal respiratory effort, No retractions and No use of accessory muscles Cardio: COMMON NORMALS: no JVD and regular rate RATE: regular rate Extremity: NARRATIVE EXTREMITY EXAM: Left popliteal tenderness on palpation without significant appreciation of swelling. Patient is Homans negative no tenderness of the calf. No lower extremity swelling or pitting edema. No discoloration of the left lower extre mity. Patient was nontender to palpation across the tibial plateau and there was no signs of patellar laxity. Neuro: COMMON NORMALS: patient oriented x3 SENSORIUM/ORIENTATION: Yes alert Psych: COMMON NORMALS: mental status grossly normal, Normal thought process present, cooperative and normal affect THOUGHT PROCESS: Normal thought process present Skin: COMMON NORMALS: no rashes or lesions noted and turgor normal GENERAL SKIN EXAM: no rashes or lesions noted and turgor normal Course Vital Signs: Vital signs: Vital Signs Temperature 98.0 F 07/08/22 17:57 Pulse Rate 88 07/08/22 21:26 Respiratory Rate 17 07/08/22 21:26 Blood Pressure 118/84 07/08/22 21:26 Pulse Oximetry 97 07/08/22 21:26 Oxygen Delivery Me thod 07/08/22 17:57 MDM - Extremity (Nontraumatic) Medical Decision Making Patient presents emergency department concerned for a blood clot given her diagn osis of clotting disorder and history of blood clot. However, patient's ultrasound was negative. Given the location of the patient's pain I am more suspicious for a popliteal bursitis though there is no known trigger to have initiated the inflammation and discomfort. We discussed treatment. Patient is not able to take NSAIDs and states she will take Tylenol. I also gave her a short course of some muscle relaxers which she can choose to take if necessary for comfort. Otherwise, we discussed keeping the knee wrapped with pressure across the posterior knee and applying ice. Patient is to take it easy next couple of days. She is to closely monitor for any sudden calf pain, lower extremity swelling or pitting edema, redness of the left knee, or sudden onset fevers. If any of these occur she is to be seen and reevaluated. Differential Diagnosis Likely deep vein thrombosis of lower extremity; Unlikely gout, cellulitis or lower extremity edema Lab Data Radiology Impressions Venous Duplex 07/08/22 17:33 IMPRESSION: No evidence of deep vein thrombosis. Discharge Plan Discharge Patient Disposition: Home Clinical Impression: Posterior left knee pain Condition: Stable Prescriptions: New cyclobenzaprine 10 mg tablet 10 mg PO TID Qty: 14 0RF No Action Kyleena 17.5 mcg/24 hrs (5 yrs) 19.5 mg intrauterine device See Rx Instructions .ROUTE .COMPLEX Rx Instructions: intrauterinely DIRECTED aspirin 325 mg tablet 81 mg PO DAILY lamotrigine [Lamictal XR] 200 mg tablet extended release 24hr 200 mg PO BID 90 Days Qty: 180 3RF atorvastatin 40 mg tablet 40 mg PO DAILY Qty: 90 1RF nystatin 100,000 unit/mL suspension 1,000,000 unit buccal QID 14 Days Qty: 560 2RF Rx Instructions: administer 1/2 of dose in each side of the mouth duloxetine [Cymbalta] 20 mg capsule,delayed release(DR/EC) 20 mg PO BID 30 Days Qty: 60 2RF losartan 25 mg tablet 25 mg PO DAILY 90 Days Qty: 90 1RF Hold Instructions: Home Medication placed on hold at Doctor's office oseltamivir [Tamiflu] 75 mg capsule 75 mg PO BID 5 Days Qty: 10 0RF albuterol sulfate 90 mcg/actuation HFA aerosol inhaler 2 puff inhalation Q6H PRN (Reason: shortness of breath or wheezing) Qty: 8.5 0RF [id number] [Bromfed DM] 2-30-10 mg/5 mL syrup 7.5 ml PO Q6H PRN (Reason: cold symptoms) Qty: 160 0RF doxycycline hyclate 100 mg tablet 100 mg PO BID 7 Days Qty: 14 0RF warfarin 5 mg tablet 5 mg PO DAILY Qty: 90 1RF Protocol: Dose Management Condition: Monday Dose/Route: 2.5 mg Instruction: 0.5 x 5 mg tablets Condition: Monday Dose/Route: 5 mg Instruction: 1 x 5 mg tablet Condition: Monday Dose/Route: 2.5 mg Instruction: 0.5 x 5 mg tablets Condition: Monday Dose/Route: 5 mg Instruction: 1 x 5 mg tablet Condition: Dose/Route: 2.5 mg Instruction: 0.5 x 5 mg tablets Condition: Monday Dose/Route: 5 mg Instruction: 1 x 5 mg tablet Condition: Monday Dose/Route: 2.5 mg Instruction: 0.5 x 5 mg tablets Protocol Text: Adjustment Start Date: Monday06/13/22 INR Value: 20.00 SECONDS INR Date: 06/09/22 Recheck Date: 06/27/22 Rx Instructions: as directed by lorazepam [Lorazepam Intensol] 2 mg/mL concentrate See Rx Instructions .ROUTE .COMPLEX PRN (Reason: seizure) Rx Instructions: 2 mg orally AT ONSET OF SIEZURE - MAX 4 MG A DAY Discharge Orders: Discharge ED (Routine); Ordered 07/08/22 Ordered By: Guillermina Goldman Referrals: Virginia Meyer MD [Primary Care Provider] - Discharge Diet: Usual diet Discharge Activity: Increase activity as tolerated Patient Instructions: Knee Bursitis (ED) Activity Restrictions/Additional Instructions: US was negative for any DVT. Given the location of your pain, i am suspicious of a popliteal bursitis. This swelling can cause pain behind the knee and even into the calf. It can cause swelling as well. I recommend applying an ice pack to the back of your knee for 15 to 20 minutes, multiple times throughout the day for the next several days. I also recommend wrapping your knee if it provides you relief of any discomfort and help you while you walk. I also recommend trying to keep off of your extremity and keeping it up and elevated the next couple days as well. If for any reason you are knee joint becomes red, swollen, or you develop a fever you need to be seen and reevaluated. If you develop any sudden swelling in your left lower leg including pitting edema you should be seen and reevaluated as well. Coding Level of Care Code ED Educational Psychology Teacher for Victoria Arcos
[2022-07-08] MEDS: cyclobenzaprine 10 mg Tablet PO (21:17)
[2022-07-08 21:26] VITALS: BP 118/84; PULSE 88; RESP 17; O2SAT 97
== END 2022-07-08 21:28 | disposition home or self-care (01) ==
PROVIDERS: Emergency Provider Physician Assistant; PCP Family Medicine
DX: M25.562 Pain in left knee (principal); Z79.01 Long term (current) use of anticoagulants; Z79.82 Long term (current) use of aspirin; F17.210 Nicotine dependence, cigarettes, uncomplicated; Z86.73 Personal history of transient ischemic attack (TIA), and cerebral infarction without residual deficits; I10 Essential (primary) hypertension
CPT/HCPCS: 93971; 99284

== ENCOUNTER → 2022-07-25 15:57 | Outpatient (BNVA) | payer BC, MEDICAID, SELFPAY | PROVIDERS: PCP Family Medicine; Visit Provider Family Medicine | DX: Z51.81 Encounter for therapeutic drug level monitoring (principal); Z79.01 Long term (current) use of anticoagulants | CPT/HCPCS: 85610 ==

== ENCOUNTER → 2022-07-26 13:07 | Outpatient (BNVA) | payer BC, MEDICAID, SELFPAY | PROVIDERS: PCP Family Medicine; Visit Provider Nurse Practitioner Family | DX: N39.0 Urinary tract infection, site not specified (principal) | CPT/HCPCS: 81000; 87086 ==

== ENCOUNTER → 2022-07-29 14:36 | Outpatient (BNVA) | payer BC, MEDICAID, SELFPAY | PROVIDERS: PCP Family Medicine; Visit Provider Family Medicine | DX: Z51.81 Encounter for therapeutic drug level monitoring (principal); Z79.01 Long term (current) use of anticoagulants | CPT/HCPCS: 85610 ==

== ENCOUNTER → 2022-08-02 14:49 | Outpatient (BNVA) | payer BC, MEDICAID, SELFPAY | PROVIDERS: PCP Family Medicine; Visit Provider Family Medicine | DX: R30.0 Dysuria (principal); Z51.81 Encounter for therapeutic drug level monitoring; Z79.01 Long term (current) use of anticoagulants; I63.9 Cerebral infarction, unspecified; Z13.220 Encounter for screening for lipoid disorders; Z13.6 Encounter for screening for cardiovascular disorders | CPT/HCPCS: 80053; 80061; 81000; 85025; 85610 ==

== ENCOUNTER → 2022-08-03 17:39 | Outpatient (BNVA) | payer BC, MEDICAID, SELFPAY | PROVIDERS: PCP Family Medicine; Visit Provider Family Medicine | DX: N39.0 Urinary tract infection, site not specified (principal) | CPT/HCPCS: 87086 ==

== ENCOUNTER → 2022-08-24 17:56 | Outpatient (BNVA) | payer BC, MEDICAID, SELFPAY | PROVIDERS: PCP Family Medicine; Visit Provider Family Medicine | DX: Z51.81 Encounter for therapeutic drug level monitoring (principal); Z79.01 Long term (current) use of anticoagulants; I63.9 Cerebral infarction, unspecified | CPT/HCPCS: 85610 ==

== ENCOUNTER → 2022-09-06 13:59 | Outpatient (BNVA) | payer BC, SELFPAY | PROVIDERS: PCP Family Medicine; Visit Provider Family Medicine | DX: Z51.81 Encounter for therapeutic drug level monitoring (principal); Z79.01 Long term (current) use of anticoagulants | CPT/HCPCS: 85610 ==

== ENCOUNTER → 2022-10-18 16:22 | Outpatient (BNVA) | payer BC, SELFPAY | PROVIDERS: PCP Family Medicine; Visit Provider Family Medicine | DX: Z79.01 Long term (current) use of anticoagulants (principal) | CPT/HCPCS: 85610 ==

== ENCOUNTER → 2022-10-25 14:46 | Outpatient (BNVA) | payer BC, SELFPAY | PROVIDERS: PCP Family Medicine; Visit Provider Family Medicine | DX: Z51.81 Encounter for therapeutic drug level monitoring (principal); Z79.01 Long term (current) use of anticoagulants | CPT/HCPCS: 85610 ==

== ENCOUNTER → 2022-11-08 16:21 | Outpatient (BNVA) | payer BC, SELFPAY | PROVIDERS: PCP Family Medicine; Visit Provider Family Medicine | DX: Z51.81 Encounter for therapeutic drug level monitoring (principal); Z79.01 Long term (current) use of anticoagulants; R21 Rash and other nonspecific skin eruption | CPT/HCPCS: 85610; 85651; 86038; 86140 ==

== ENCOUNTER → 2022-11-28 14:17 | Outpatient (BNVA) | payer BC, SELFPAY | PROVIDERS: PCP Family Medicine; Visit Provider Nurse Practitioner Family | DX: N63.22 Unspecified lump in the left breast, upper inner quadrant (principal); Z51.81 Encounter for therapeutic drug level monitoring; Z79.01 Long term (current) use of anticoagulants | CPT/HCPCS: 85610 ==

== ENCOUNTER → 2022-12-06 16:49 | Outpatient (BNVA) | payer BC, SELFPAY | PROVIDERS: PCP Family Medicine; Visit Provider Family Medicine | DX: Z51.81 Encounter for therapeutic drug level monitoring (principal); Z79.01 Long term (current) use of anticoagulants | CPT/HCPCS: 85610 ==

== ENCOUNTER → 2022-12-12 15:20 | Outpatient (BNVA) | payer BC, MEDICAID, SELFPAY | PROVIDERS: PCP Family Medicine; Visit Provider Family Medicine | DX: Z79.01 Long term (current) use of anticoagulants (principal); Z51.81 Encounter for therapeutic drug level monitoring | CPT/HCPCS: 85610 ==

== ENCOUNTER 2022-12-15 12:23 | Outpatient (CLI) | payer BC, SELFPAY ==
--- NOTE | 2022-12-15 13:02 | MM_ITS ---
WS: [id number] BILATERAL 3D TOMOSYNTHESIS DIGITAL DIAGNOSTIC MAMMOGRAPHY WITH CAD CLINICAL INFORMATION: LUMP IN LT BREAST HISTORY: LEFT breast lump COMPARISON: 2016 TECHNIQUE: Bilateral CC, MLO, and ML views. FINDINGS: The breasts are composed of heterogeneous fibroglandular density, which can limit the detection of sm all underlying mass lesions. Partially obscured ovoid nodules in the breasts bilaterally likely breas t cysts in a patient this age progressed compared to 2016. Palpable markers LEFT breast. Ultrasound is pending. Largest nodule LEFT breast measures 2.1 cm and l argest in the RIGHT measures 2.5 CM. Larger cyst RIGHT breast are new compared to 2016. ULTRASOUND BREAST BILATERAL TECHNIQUE: Ultrasound bilateral breast focused area of concern. CLINICAL INFORMATION: LUMP IN LT BREAST COMPARISON: Ultrasound RIGHT breast 2016 FINDINGS: RIGHT BREAST: Multiple simple and complex cysts RIGHT breast. At the 10:00 position 2 cm from the nip ple is a simple lobulated cyst measuring 2.6 x 2.5 x 1.1 cm Small complex cyst 11:00 position with internal debris 2 cm from the nipple measuring 0.6 x 0.6 x 0.5 cm LEFT BREAST: Multiple simple and complex breast cysts. Complex cyst at the 12:00 position 1 the nippl e measuring 1.7 x 1.8 x 1.4 cm Lobulated cyst at the areola 1:00 position with one or 2 internal septations measuring 1.8 x 2.2 x 1. 5 cm. MM/[id number] IMPRESSION: BI-RADS: 3-Probably Benign FOLLOW UP: 6 Month Follow-up Recommend bilateral breast ultrasound in 6 months to confirm stability of the l arger bilateral complex cysts described above.
== END 2022-12-15 12:24 | disposition home or self-care (01) ==
LOC: RAD 12:25
PROVIDERS: PCP Family Medicine; Visit Provider Nurse Practitioner Family
DX: N63.25 Unspecified lump in the left breast, overlapping quadrants (principal); N60.02 Solitary cyst of left breast; N60.01 Solitary cyst of right breast
CPT/HCPCS: 76642; 77062; 85610; G0279

== ENCOUNTER → 2023-01-03 16:17 | Outpatient (BNVA) | payer BC, SELFPAY | PROVIDERS: PCP Family Medicine; Visit Provider Family Medicine | DX: Z51.81 Encounter for therapeutic drug level monitoring (principal); Z79.01 Long term (current) use of anticoagulants | CPT/HCPCS: 85610 ==

== ENCOUNTER → 2023-01-24 14:30 | Outpatient (BNVA) | payer BC, SELFPAY | PROVIDERS: PCP Family Medicine; Visit Provider Family Medicine | DX: Z51.81 Encounter for therapeutic drug level monitoring (principal); Z79.01 Long term (current) use of anticoagulants; I10 Essential (primary) hypertension | CPT/HCPCS: 80053; 83540; 83735; 85025; 85610 ==

== ENCOUNTER → 2023-01-31 14:43 | Outpatient (BNVA) | payer BC, SELFPAY | PROVIDERS: PCP Family Medicine; Visit Provider Family Medicine | DX: I63.9 Cerebral infarction, unspecified (principal); Z51.81 Encounter for therapeutic drug level monitoring; Z79.01 Long term (current) use of anticoagulants | CPT/HCPCS: 80053; 85610 ==

== ENCOUNTER → 2023-02-09 08:36 | Outpatient (BNVA) | payer BC, SELFPAY | PROVIDERS: PCP Family Medicine; Visit Provider Family Medicine | DX: E87.6 Hypokalemia (principal) | CPT/HCPCS: 80048 ==

== ENCOUNTER → 2023-03-02 15:35 | Outpatient (BNVA) | payer BC, SELFPAY | PROVIDERS: PCP Family Medicine; Referring Provider Family Medicine; Visit Provider Family Medicine | DX: Z51.81 Encounter for therapeutic drug level monitoring (principal); Z79.01 Long term (current) use of anticoagulants; I63.9 Cerebral infarction, unspecified | CPT/HCPCS: 85610 ==

== ENCOUNTER → 2023-03-09 15:54 | Outpatient (BNVA) | payer BC, SELFPAY | PROVIDERS: PCP Family Medicine; Referring Provider Family Medicine; Visit Provider Family Medicine | DX: Z51.81 Encounter for therapeutic drug level monitoring (principal); Z79.01 Long term (current) use of anticoagulants | CPT/HCPCS: 85610 ==

== ENCOUNTER → 2023-03-14 10:25 | Outpatient (BNVA) | payer BC, SELFPAY | PROVIDERS: PCP Family Medicine; Referring Provider Family Medicine; Visit Provider Internal Medicine Rheumatology | DX: Z79.899 Other long term (current) drug therapy (principal); M19.90 Unspecified osteoarthritis, unspecified site; M45.6 Ankylosing spondylitis lumbar region; R76.8 Other specified abnormal immunological findings in serum; Z11.59 Encounter for screening for other viral diseases; Z11.1 Encounter for screening for respiratory tuberculosis | CPT/HCPCS: 36415; 73130; 73630; 82085; 82306; 82550; 85025; 85651; 86140; 86160; 86162; 86200; 86235; 86255; 86376; 86431; 86480; 86704; 86800; 86803; 86812; 87340 ==

== ENCOUNTER → 2023-04-04 15:06 | Outpatient (BNVA) | payer BC, SELFPAY | PROVIDERS: PCP Family Medicine; Referring Provider Family Medicine; Visit Provider Family Medicine | DX: Z51.81 Encounter for therapeutic drug level monitoring (principal); Z79.01 Long term (current) use of anticoagulants | CPT/HCPCS: 85610 ==

== ENCOUNTER 2023-05-04 13:20 | Emergency (ER) | payer BC, MEDICAID, SELFPAY ==
[2023-05-04 13:50] VITALS: BP 149/117; PULSE 113; RESP 16; TEMP 36.5; O2SAT 97; BMI 24.2
--- NOTE | 2023-05-04 14:21 | ED_ITS ---
HPI - Abdominal Pain General: Chief Complaint: Abdominal Pain Stated Complaint: low abd pain Time Seen by Provider: 05/04/23 13:22 Source: patient Mode of arrival: ambulatory History of Present Illness: 42-year-old female presents emergency room complaining of back pain and right flank pain. She also has had diarrhea for the last 3 weeks no hematochezia melena hematemesis or coffee-ground emesis that she has a history of frequent UTIs. She denies fever sweats or chills no chest pain or shortness of breath. She has had strokes in the past and has antiphospholipid antibody syndrome. She is on anticoagulation her last INR was checked within the last month MD elicited complaint: abdominal pain Pertinent past history: past UTI Onset (ago): week(s) (3) Location: R flank Severity: moderate Quality: cramping Radiation: LLQ and RLQ Exacerbating factors: nothing Relieving factors: nothing Associated Symptoms: Denies anorexia, belching, bloating, change in bowel habits, change in stool character, chills, coffee ground emesis, constipation, GI cramping, diarrhea, dyspepsia, dysuria, excessive flatus, fever(s), heartburn, hematochezia, hematuria, hematemesis, fecal incontinence, loose stools, melena, nausea, poor appetite, syncope and vomiting Review of Systems Const: Denies: fever(s) or chills Card: Denies: chest pain or syncope Resp: Denies: dyspnea GI: Denies: abdominal pain, nausea, vomiting, hematemesis, coffee ground emesis, heartburn, diarrhea, constipation, bloating, GI cramping, belching, excessive flatus, fecal incontinence, change in bowel habits, change in stool character, hematochezia or melena : Denies: dysuria, urinary frequency, urinary urgency or hematuria Musc: Denies: neck pain or back pain Skin/Breast: Denies: rash PFSH ED PFSH: Medical History Anticoagulated with warfarin Anticoagulation goal of INR 2 to 3 Complex partial epilepsy with generalization CVA (cerebral vascular accident) High risk medication use HTN (hypertension) Inflammatory arthritis Mood disorder due to a general medical condition Psychiatric care Surgical History H/O section H/O dilation and curettage x2 - 2007 Family History Father Cancer brain cancer - Diabetes Family/Other Thyroid disease x2 Maternal Aunt - unsure Other Lupus Rheumatoid arthritis Denies family history of Ovarian cyst Clotting disorder Hyperlipidemia Chronic kidney disease (CKD) Suicide Bleeding disorder Lung disease Hypertension Stroke Social History Smoking and tobacco/nicotine status: current every day tobacco/nicotine user Substance/Drug Use: never Female Reproductive History: Spontaneous abortions: No Physical Exam Const: COMMON NORMALS: no acute distress GENERAL APPEARANCE: cooperative and comfortable ORIENTATION/CONSCIOUSNESS: Yes awake, Yes oriented to person, Yes oriented to place and Yes oriented to time HENMT: COMMON NORMALS: normocephalic, atraumatic and hearing grossly normal bilaterally HEAD & SCALP: normocephalic and atraumatic Resp: COMMON NORMALS: normal respiratory effort, No retractions, No use of accessory muscles and clear to auscultation bilaterally AUSCULTATION: clear to auscultation bilaterally Cardio: COMMON NORMALS: regular rate, regular rhythm and No murmurs present (Cardio) RATE: regular rate RHYTHM: regular rhythm GI: COMMON NORMALS: Soft to palpation and No hepatosplenomegaly present AUSCULTATION: Yes normoactive bowel sounds PALPATION: Yes Soft to palpation, No Tenderness to palpation present (GI), No Guarding due to palpation present (GI) and Yes No hepatosplenomegaly present Extremity: COMMON NORMALS: normal to inspection, capillary refill normal, no c lubbing, cyanosis or edema, no calf tenderness and no pedal edema Neuro: SENSORIUM/ORIENTATION: Yes oriented to person, Yes oriented to place and Yes oriented to time Skin: COMMON NORMALS: no rashes or lesions noted GENERAL SKIN EXAM: no rashes or lesions noted Course Vital Signs: Vital signs: Vital Signs Temperature 97.7 F 05/04/23 13:50 Pulse Rate 88 05/04/23 17:48 Respiratory Rate 18 05/04/23 17:48 Blood Pressure 131/98 05/04/23 17:48 Pulse Oximetry 96 05/04/23 17:48 Oxygen Delivery Me thod Room Air 05/04/23 17:48 MDM - Abdominal Pain Medical Decision Making Colitis noted on CT. We will discharge patient home with Cipro and Flagyl. Also gave her ondansetron to use as needed. Recommend she follow-up with her primary care doctor if she would likely require a colonoscopy at a later date. Reviewed with her urine was normal. No episodes of diarrhea while in the emergency room. Medical Records I reviewed the patient's medical records. Lab Data I reviewed the patient's lab results. 05/04/23 14:15 05/04/23 14:15 Labs/Radiology: Radiology Impressions Abdomen/Pelvis CT 05/04/23 16:30 IMPRESSION: 1. Evidence of chronic colitis with questionable areas of mild superimposed acute colitis, as described above. 2. 5.4 x 4 cm complex right adnexal cystic lesion versus several adjacent cysts. If clinically indicated, pelvic ultrasound may be obtained for further evaluation. 3. Additional findings, as above. COMMENTS: Consistent with the [employer]'s Incidental Findings Committee white paper (J Am Reji Radiol 2018): Any incidental renal lesion less than 1 cm or classified as too small to characterize, or any incidental cystic renal lesion characterized as simple-appearing, is likely benign. No follow-up imaging is recommended for these lesions per consensus recommendations based on imaging criteria. Laboratory Results WBC 5.06 10^3/uL (3.29-11.43) 05/04/23 14:15 RBC 4.85 10^6/uL (3.85-5.65) 05/04/23 14:15 Hgb 15.90 g/dL (11.27-16.99) 05/04/23 14:15 Hct 46.0 % (36-47) 05/04/23 14:15 MCV 94.8 fl (85-98) 05/04/23 14:15 MCH 32.8 pg (27-33) 05/04/23 14:15 MCHC 34.6 g/dL (30-55) 05/04/23 14:15 RDW 15.0 % (12.1-15.1) 05/04/23 14:15 Plt Count 139 10^3/cmm (157-399) L 05/04/23 14:15 MPV 12.1 fL (7.4-10.4) H 05/04/23 14:15 Neut % (Auto) 69.9 % 05/04/23 14:15 Lymph % (Auto) 20.4 % 05/04/23 14:15 Barron % (Auto) 7.1 % 05/04/23 14:15 Eos % (Auto) 1.2 % 05/04/23 14:15 Baso % (Auto) 0.8 % 05/04/23 14:15 Neut # (Auto) 3.54 10^3/uL (1.8-7.7) 05/04/23 14:15 Lymph # (Auto) 1.0 10^3/uL (0.8-4.8) 05/04/23 14:15 Barron # (Auto) 0.4 10^3/uL (0.2-0.9) 05/04/23 14:15 Eos # (Auto) 0.1 10^3/uL (0.0-0.8) 05/04/23 14:15 Baso # (Auto) 0.0 10^3/uL (0.0-0.1) 05/04/23 14:15 Nucleated RBC % (auto) 0 % 05/04/23 14:15 Nucleated RBCs # 0.0 /100WBC 05/04/23 14:15 Sodium 135 mmol/L (136-145) L 05/04/23 14:15 Potassium 3.2 mmol/L (3.5-5.1) L 05/04/23 14:15 Chloride 100 mmol/L (98-107) 05/04/23 14:15 Carbon Dioxide 25 mmol/L (22-29) 05/04/23 14:15 Anion Gap 13.2 (5-19) 05/04/23 14:15 BUN 5 mg/dL (6-20) L 05/04/23 14:15 Creatinine 0.8 mg/dL (0.5-0.9) 05/04/23 14:15 GFR Calculation 78.7 mL/min (90-130) L 05/04/23 14:15 Glucose 92 mg/dL (65-115) 05/04/23 14:15 Calculated Osmolality 277 mOsm/kg (285-295) L 05/04/23 14:15 Lactic Acid 1.3 mmol/L (0.5-2.2) 05/04/23 14:15 Calcium 9.1 mg/dL (8.5-10.5) 05/04/23 14:15 Total Bilirubin 0.5 mg/dL (0.15-1.2) 05/04/23 14:15 AST 30 U/L (0-32) 05/04/23 14:15 ALT 12 U/L (0-33) 05/04/23 14:15 Alkaline Phosphatase 103 U/L (35-105) 05/04/23 14:15 Total Protein 7.3 g/dL (6.6-8.7) 05/04/23 14:15 Albumin 4.2 g/dL (3.5-5.2) 05/04/23 14:15 Globulin 3.1 g/dL (1.3-4.6) 05/04/23 14:15 Urine Color Yellow (Yellow) 05/04/23 16:08 Urine Appearance Clear (CLEAR) 05/04/23 16:08 Urine pH 6 (5-7) 05/04/23 16:08 Ur Specific Gerton 1.010 (1.005-1.030) 05/04/23 16:08 Urine Protein Neg (Negative) 05/04/23 16:08 Urine Glucose (UA) Norm (Normal) 05/04/23 16:08 Urine Ketones Negative (Negative) 05/04/23 16:08 Urine Blood Neg (Negative) 05/04/23 16:08 Urine Nitrate Negative (Negative) 05/04/23 16:08 Urine Bilirubin Neg (Negative) 05/04/23 16:08 Urine Urobilinogen Neg mg/dL (Negative) 05/04/23 16:08 Ur Leukocyte Esterase Negative (Negative) 05/04/23 16:08 All radiology interpretation(s) finalized by discharge Discharge Plan Discharge Patient Disposition: Home Clinical Impression: Colitis Condition: Stable Prescriptions: New Cipro 500 mg tablet 500 mg PO BID Qty: 14 0RF metronidazole 500 mg tablet 500 mg PO BID 7 Days Qty: 14 0RF ondansetron HCl 4 mg tablet 4 mg PO Q6H PRN (Reason: nausea and vomiting) Qty: 20 0RF No Action Kyleena 17.5 mcg/24 hrs (5 yrs) 19.5 mg intrauterine device See Rx Instructions .ROUTE .COMPLEX Rx Instructions: intrauterinely DIRECTED lamotrigine [Lamictal XR] 200 mg tablet extended release 24hr 200 mg PO BID 90 Days Qty: 180 3RF duloxetine 60 mg capsule,delayed release(DR/EC) 60 mg PO QAM 30 Days Qty: 30 3RF leflunomide 20 mg tablet 20 mg PO DAILY Qty: 30 3RF warfarin 4 mg tablet See Rx Instructions .ROUTE .COMPLEX Qty: 30 0RF Protocol: Dose Management Condition: Monday Dose/Route: 4 mg Instruction: 1 x 4 mg tablet Condition: Monday Dose/Route: 4 mg Instruction: 1 x 4 mg tablet Condition: Monday Dose/Route: 3 mg Instruction: 1 x 3 mg tablet Condition: Monday Dose/Route: 4 mg Instruction: 1 x 4 mg tablet Condition: Dose/Route: 4 mg Instruction: 1 x 4 mg tablet Condition: Monday Dose/Route: 3 mg Instruction: 1 x 3 mg tablet Condition: Monday Dose/Route: 4 mg Instruction: 1 x 4 mg tablet Protocol Text: Adjustment Start Date: 03/09/23 INR Value: 24.70 SECONDS INR Date: 03/09/23 Recheck Date: 03/30/23 Dose Instruction: TAKE 1 TABLET BY MOUTH ONCE DAILY FOR 30 DAYS DIRECTED BY DOCTOR Rx Instructions: TAKE 1 TABLET BY MOUTH MONDAY, MONDAY, MONDAY AND MONDAY potassium chloride 8 mEq tablet extended release 16 meq PO TID 30 Days Qty: 180 0RF atorvastatin 40 mg tablet 40 mg PO QPM warfarin 3 mg tablet See Rx Instructions .ROUTE .COMPLEX Protocol: Dose Management Condition: Monday Dose/Route: 4 mg Instruction: 1 x 4 mg tablet Condition: Monday Dose/Route: 4 mg Instruction: 1 x 4 mg tablet Condition: Monday Dose/Route: 3 mg Instruction: 1 x 3 mg tablet Condition: Monday Dose/Route: 4 mg Instruction: 1 x 4 mg tablet Condition: Dose/Route: 4 mg Instruction: 1 x 4 mg tablet Condition: Monday Dose/Route: 3 mg Instruction: 1 x 3 mg tablet Condition: Monday Dose/Route: 4 mg Instruction: 1 x 4 mg tablet Protocol Text: Adjustment Start Date: 03/09/23 INR Value: 24.70 SECONDS INR Date: 03/09/23 Recheck Date: 03/30/23 Rx Instructions: tAKE 1 TABLET BY MOUTH MONDAY, MONDAY AND MONDAY lorazepam 2 mg tablet See Rx Instructions .ROUTE .COMPLEX PRN (Reason: sedation) Rx Instructions: 2 mg buccally as needed ;Use 1 tablet as needed for seizure Discharge Orders: Discharge ED (Routine); Ordered 05/04/23 Ordered By: Jack Mojica Referrals: Virginia Meyer MD [Primary Care Provider] - Patient Instructions: Colitis (ED), Opioid Safety, Pain Management Activity Restrictions/Additional Instructions: Thank you for choosing [facility] for your healthcare needs today. Please realize this is an emergency room and that we are providing you with a medical screening exam and this may not be complete and all inclusive of all the testing and or work up that you may need to determine your ailment or severity of your illness. It is very important that you follow up as instructed or that you return to the Emergency Department should you have concerns or if your condition changes or worsens in any way. You are seen today with diarrhea and abdominal pain CT showed colitis recommend he take the 2 antibiotics for the next 7 days follow-up with your primary care doctor you will likely require further evaluation including possible colonoscopy if symptoms worsen or change return Coding Level of Care Code ED Colorer [employer] for Victoria Arcos
[2023-05-04 14:36] LABS: Basophils % 0.8 %; Eosinophils # 0.1 10^3/uL (0.0-0.8); Eosinophils % 1.2 %; Lymphocytes % 20.4 %; Mean Corpuscular HGB Conc 34.6 g/dL (30-55); Mean Corpuscular Hemoglobin 32.8 pg (27-33); Mean Corpuscular Volume 94.8 fl (85-98); Mean Platelet Volume 12.1 fL (7.4-10.4); Monocytes # 0.4 10^3/uL (0.2-0.9); Monocytes % 7.1 %; Neutrophils # 3.54 10^3/uL (1.8-7.7); Neutrophils % 69.9 %; Nucleated Red Blood Cells % 0 %; Platelet Count 139 10^3/cmm (157-399); Red Blood Count 4.85 10^6/uL (3.85-5.65); White Blood Count 5.06 10^3/uL (3.29-11.43)
[2023-05-04 14:48] VITALS: BP 140/99; PULSE 93; RESP 18; O2SAT 97
--- NOTE | 2023-05-04 14:52 | PC.PHAR ---
PT STATES WARFARIN 3 MG CHANGED TO MONDAY, MONDAY AND MONDAY. WARFARIN 4 MG MONDAY, MONDAY, MONDAY AND MONDAY. 05/04/23
[2023-05-04] MEDS: sodium chloride 0.9% 1,000 ML 999 ML IV (14:53)
[2023-05-04 15:02] LABS: Lactic Sepsis W/Reflex 1.3 mmol/L (0.5-2.2)
[2023-05-04 15:03] LABS: Alanine Aminotransferase 12 U/L (0-33); Albumin Level 4.2 g/dL (3.5-5.2); Alkaline Phosphatase 103 U/L (35-105); Anion Gap 13.2 (5-19); Aspartate Amino Transferase 30 U/L (0-32); Blood Urea Nitrogen 5 mg/dL (6-20); Calcium 9.1 mg/dL (8.5-10.5); Carbon Dioxide 25 mmol/L (22-29); Chloride 100 mmol/L (98-107); Globulin 3.1 g/dL (1.3-4.6); Glomerular Filtration Rate 78.7 mL/min (90-130); Glucose 92 mg/dL (65-115); Osmolality Calculated 277 mOsm/kg (285-295); Potassium 3.2 mmol/L (3.5-5.1); Sodium 135 mmol/L (136-145); Total Bilirubin 0.5 mg/dL (0.15-1.2); Total Protein 7.3 g/dL (6.6-8.7)
[2023-05-04 15:33] VITALS: BP 142/96; PULSE 82; RESP 18; O2SAT 97
[2023-05-04 16:05] VITALS: BP 125/92; PULSE 84; RESP 18; O2SAT 98
[2023-05-04 16:16] LABS: Add Urine Microscopic? NO; Charge for UA Resulting for Rev
[2023-05-04 16:22] LABS: Bilirubin Urine Neg (Negative); Blood Urine Neg (Negative); Glucose Urine UA Norm (Normal); Ketones Urine Negative (Negative); Leukocyte Esterase Urine Negative (Negative); Nitrate Urine Negative (Negative); Protein Urine Neg (Negative); Urine Appearance Clear (CLEAR); Urine Color Yellow (Yellow); Urobilinogen Urine Neg (Negative); pH Urine 6 (5-7)
--- NOTE | 2023-05-04 16:30 | CTR_ITS ---
PROCEDURE INFORMATION: Exam: CT Abdomen And Pelvis With Contrast Exam date and time: 05/04/2023 5:04 PM Age: 42 years old Clinical indication: Abdominal pain; Localized; Lower; Prior surgery; Surgery date: 6+ months; Surgery type: ; Additional info: Abd pain TECHNIQUE: Imaging protocol: Computed tomography of the abdomen and pelvis with contrast. Axial, coronal and sagittal reformatted images were created and reviewed. Radiation optimization: All CT scans at this facility use at least one of these dose optimization techniques: automated exposure control; mA and/or kV adjustment per patient size (includes targeted exams where dose is matched to clinical indication); or iterative reconstruction. Contrast material: OMNI 350; Contrast volume: 100 ml; Contrast route: INTRAVENOUS (IV); REPORTING DATA: Count of CT and Cardiac NM exams in prior 12 months: This patient has received 0 known CTs and 0 known cardiac nuclear medicine studies in the 12 months prior to the current study. COMPARISON: CT abdomen pelvis wo con [id number] 01/13/2022 6:24 PM RADIATION DOSE METRICS: Total DLP (mGy-cm): 404 FINDINGS: Tubes, catheters and devices: Intrauterine device in place. Liver: Unremarkable. Gallbladder and bile ducts: No radiodense gallstones. No biliary ductal dilatation. Pancreas: Unremarkable. Spleen: Unremarkable. Adrenal glands: Normal. No mass. Kidneys and ureters: 1.3 cm left renal cyst (no follow-up is indicated based on the imaging appearance). No radiodense calculi. No hydronephrosis. Stomach and bowel: Submucosal fat deposition in the colon, consistent with chronic inflammation. Probable superimposed areas of mild, acute colonic wall thickening lungs with associated luminal narrowing. No obstruction. No pneumatosis. Appendix: Normal. Intraperitoneal space: No free fluid. No organized fluid collection. No free air. Vasculature: Mild atherosclerotic disease. No aneurysm or dissection. Lymph nodes: No pathologically enlarged lymph nodes. Urinary bladder: Mild circumferential urinary bladder wall thickening, likely secondary to underdistention. Reproductive: 5.4 x 4 cm complex right adnexal cystic lesion versus several adjacent cysts. 2.9 x 2.5 cm left adnexal cystic lesion. Bones/joints: No acute osseous abnormality. Mild degenerative changes. Soft tissues: Tiny, fat containing umbilical hernia. CT/CT abdomen pelvis w con* [id number] IMPRESSION: 1. Evidence of chronic colitis with questionable areas of mild superimposed acute colitis, as described above. 2. 5.4 x 4 cm complex right adnexal cystic lesion versus several adjacent cysts. If clinically indicated, pelvic ultrasound may be obtained for further evaluation. 3. Additional findings, as above. COMMENTS: Consistent with the [employer]'s Incidental Findings Committee white paper (J Am Reji Radiol 2018): Any incidental renal lesion less than 1 cm or classified as too small to characterize, or any incidental cystic renal lesion characterized as simple-appearing, is likely benign. No follow-up imaging is recommended for these lesions per consensus recommendations based on imaging criteria.
[2023-05-04 17:48] VITALS: BP 131/98; PULSE 88; RESP 18; O2SAT 96
== END 2023-05-04 18:07 | disposition home or self-care (01) ==
PROVIDERS: Emergency Provider Family Medicine; PCP Family Medicine
DX: K52.9 Noninfective gastroenteritis and colitis, unspecified (principal); Z79.01 Long term (current) use of anticoagulants; Z72.0 Tobacco use; Z86.73 Personal history of transient ischemic attack (TIA), and cerebral infarction without residual deficits; I10 Essential (primary) hypertension
CPT/HCPCS: 36415; 74177; 80053; 81003; 83605; 85025; 87040; 99284; J7030

== ENCOUNTER → 2023-05-09 10:08 | Outpatient (BNVA) | payer BC, MEDICAID, SELFPAY | PROVIDERS: PCP Family Medicine; Visit Provider Family Medicine | DX: Z51.81 Encounter for therapeutic drug level monitoring (principal); Z79.01 Long term (current) use of anticoagulants; I63.9 Cerebral infarction, unspecified | CPT/HCPCS: 85610 ==

== ENCOUNTER → 2023-05-11 08:32 | Outpatient (BNVA) | payer BC, MEDICAID, SELFPAY | PROVIDERS: PCP Family Medicine; Visit Provider Family Medicine | DX: I63.9 Cerebral infarction, unspecified (principal); Z51.81 Encounter for therapeutic drug level monitoring; Z79.01 Long term (current) use of anticoagulants | CPT/HCPCS: 85610 ==

== ENCOUNTER → 2023-05-15 12:13 | Outpatient (BNVA) | payer BC, MEDICAID, SELFPAY | PROVIDERS: PCP Family Medicine; Referring Provider Family Medicine; Visit Provider Emergency Medicine | DX: Z51.81 Encounter for therapeutic drug level monitoring (principal); Z79.01 Long term (current) use of anticoagulants | CPT/HCPCS: 85610 ==

== ENCOUNTER → 2023-05-18 16:34 | Outpatient (BNVA) | payer BC, MEDICAID, SELFPAY | PROVIDERS: PCP Family Medicine; Referring Provider Family Medicine; Visit Provider Family Medicine | DX: Z51.81 Encounter for therapeutic drug level monitoring (principal); Z79.01 Long term (current) use of anticoagulants | CPT/HCPCS: 85610 ==

== ENCOUNTER 2023-06-08 14:45 | Emergency (ER) | payer BC, MEDICAID, SELFPAY ==
[2023-06-08 14:47] VITALS: BP 125/89; PULSE 89; RESP 15; TEMP 36.9; O2SAT 98
--- NOTE | 2023-06-08 15:35 | ECG_ITS ---
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 Measurements Intervals [place] Rate: 82 P: 63 ID: [id number] QRS: 42 QRSD: 88 T: 66 QT: 404 QTc: 475 Interpretive Statements SINUS RHYTHM POSSIBLE LEFT ATRIAL ENLARGEMENT [-0.1mV P-WAVE IN V1/V2] No previous ECG available for comparison Electronically Signed On 06-08-2023 16:26:46 COATER SMOKING PIPE by Kimber Echols M.D. [email or web address] [email or web address] Intellect/store/[id number]
--- NOTE | 2023-06-08 15:48 | CTR_ITS ---
PROCEDURE INFORMATION: Exam: CT Head Without Contrast Exam date and time: 06/08/2023 4:53 PM Age: 42 years old Clinical indication: Pain; Headache; Additional info: Hadache weakness TECHNIQUE: Imaging protocol: Computed tomography of the head without contrast. Radiation optimization: All CT scans at this facility use at least one of these dose optimization techniques: automated exposure control; mA and/or kV adjustment per patient size (includes targeted exams where dose is matched to clinical indication); or iterative reconstruction. REPORTING DATA: Count of CT and Cardiac NM exams in prior 12 months: This patient has received [address] and 0 known cardiac nuclear medicine studies in the 12 months prior to the current study. COMPARISON: CT angio headneck* [id number] 01/04/2022 5:02 PM RADIATION DOSE METRICS: Total DLP (mGy-cm): 1049 FINDINGS: Brain: No hemorrhage. No edema. Focal encephalomalacia again noted within the right occipital lobe corresponding to old infarct. No mass effect. Cerebral ventricles: No ventriculomegaly. Paranasal sinuses: Visualized sinuses are unremarkable. No fluid levels. Mastoid air cells: Visualized mastoid air cells are well aerated. Bones/joints: Unremarkable. No acute fracture. Soft tissues: Unremarkable. CT/CT head wo con* [id number] IMPRESSION: 1. No acute intracranial abnormality. 2. Redemonstrated old infarct in the right occipital lobe.
--- NOTE | 2023-06-08 16:01 | ED_ITS ---
HPI - Headache 2 General: Chief Complaint: Headache Stated Complaint: headache,Dr murguia,previous stroke Time Seen by Provider: 06/08/23 15:35 Source: patient Mode of arrival: ambulatory History of Present Illness: 42-year-old female presents to the emerg ency room with complaint of a right- sided headache. This been ongoing for the last 4 days she is taken Tylenol for with no improvement. 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 She does check her INR on an outpatient with a home monitor events on occasion and tells me the last time we checked it was 1.6. Because her headache is persisting she was advised to go to the emergency room by her primary care physician. She denies any recent trauma. She has not had any new neurologic deficits she still has some residual deficits from previous stroke but relates there are no new deficits. She does have new dizziness and headache that are worsened. She denies any chest pain or shortness of breath. MD elicited complaint: headache Onset (ago): day(s) Location: right and frontal Exacerbating factors: none Relieving factors: nothing Associated symptoms: Deny chest pain, confusion, cough, diaphoresis, eye pain, eye redness, fever(s), lightheadedness, loss of vision, malaise, nausea, neck stiffness, numbness, paresthesias, photophobia, pre-syncope, rash, seizures, short of breath, sound sensitivity, syncope, vomiting or weakness Treatments prior to arrival: none Review of Systems 2 Const: Denies: fever(s), chills, malaise or diaphoresis Eyes: Reports: blind spots (From previous stroke) Card: Denies: chest pain, lightheadedness, syncope or pre-syncope Resp: Denies: dyspnea GI: Denies: abdominal pain, nausea or vomiting : Denies: dysuria, urinary frequency or urinary urgency Musc: Denies: neck pain or back pain Skin/Breast: Denies: rash Neuro: Reports: headache(s); Denies: confusion PFSH ED 2 PFSH: Medical History High risk medication use Inflammatory arthritis Mood disorder due to a general medical condition Psychiatric care Anticoagulated with warfarin HTN (hypertension) Anticoagulation goal of INR 2 to 3 CVA (cerebral vascular accident) Complex partial epilepsy with generalization Surgical History H/O dilation and curettage x2 - 2004, 2007 H/O section Family History Father Cancer brain cancer - Diabetes Family/Other Thyroid disease x2 Maternal Aunt - unsure Other Lupus Rheumatoid arthritis Denies family history of Ovarian cyst Clotting disorder Hyperlipidemia Chronic kidney disease (CKD) Suicide Bleeding disorder Lung disease Hypertension Stroke Social History (Updated 06/06/23 @ 14:43 by Petra Ruff LPN) Smoking and tobacco/nicotine status: current every day tobacco/nicotine user cigarettes Packs smoked per day: 1 Alcohol intake: never Substance/Drug Use: never Female Reproductive History: Spontaneous abortions: No Physical Exam 2 Const: COMMON NORMALS: no acute distress GENERAL APPEARANCE: cooperative and comfortable ORIENTATION/CONSCIOUSNESS: Yes awake, Yes oriented to person, Yes oriented to place and Yes oriented to time HENMT: COMMON NORMALS: normocephalic, atraumatic and hearing grossly normal bilaterally HEAD & SCALP: normocephalic and atraumatic Eye: DIRECT OPHTHALMOSCOPY: No photophobia Resp: COMMON NORMALS: normal respiratory effort, No retractions, No use of accessory muscles and clear to auscultation bilaterally AUSCULTATION: clear to auscultation bilaterally Cardio: COMMON NORMALS: regular rate, regular rhythm and No murmurs present (Cardio) RATE: regular rate RHYTHM: regular rhythm GI: COMMON NORMALS: Soft to palpation and No hepatosplenomegaly present A USCULTATION: Yes normoactive bowel sounds PALPATION: Yes Soft to palpation, No Tenderness to palpation present (GI), No Guarding due to palpation present (GI) and Yes No hepatosplenomegaly present Extremity: COMMON NORMALS: normal to inspection, capillary refill normal, no clubbing, cyanosis or edema, no calf tenderness and no pedal edema Neuro: SENSORIUM/ORIENTATION: Yes oriented to person, Yes oriented to place and Yes oriented to time OTHER: Patient has a left visual field defect which was present previously from her prior stroke. She has no new focal neurologic deficits Skin: COMMON NORMALS: no rashes or lesions noted GENERAL SKIN EXAM: no rashes or lesions noted Course 2 Vital Signs: Vital signs: Vital Signs Temperature 98.5 F 06/08/23 14:47 Pulse Rate 73 06/08/23 19:37 Respiratory Rate 20 H 06/08/23 19:37 Blood Pressure 125/83 06/08/23 19:37 Pulse Oximetry 98 06/08/23 19:37 Oxygen Delivery Me thod Room Air 06/08/23 16:24 MDM - Headache Medical Decision Making CT head shows previous posterior stroke in the right occipital region unchanged. On exam she has no new neurologic deficits. Deficits that she does have this point are pre-existing. Her headache is improved. Labs reviewed she is subtherapeutic with her Coumadin at this point recommend that she take 6 mg daily for the next 3 days and resume her usual regimen follow-up with an INR and 7 to 10 days. Return if she has further problems. Medical Records I reviewed the patient's medical records. Lab Data I reviewed the patient's lab results. 06/08/23 16:22 06/08/23 16:[address] 06/08/23 15:48 IMPRESSION: 1. No acute intracranial abnormality. 2. Redemonstrated old infarct in the right occipital lobe. Laboratory Results WBC 6.52 10^3/uL (3.29-11.43) 06/08/23 16:22 RBC 4.36 10^6/uL (3.85-5.65) 06/08/23 16:22 Hgb 14.10 g/dL (11.27-16.99) 06/08/23 16:22 Hct 42.6 % (36-47) 06/08/23 16:22 MCV 97.7 fl (85-98) 06/08/23 16:22 MCH 32.3 pg (27-33) 06/08/23 16:22 MCHC 33.1 g/dL (30-55) 06/08/23 16:22 RDW 14.6 % (12.1-15.1) 06/08/23 16:22 Plt Count 155 10^3/cmm (157-399) L 06/08/23 16:22 MPV 11.9 fL (7.4-10.4) H 06/08/23 16:22 Neut % (Auto) 78.1 % 06/08/23 16:22 Lymph % (Auto) 12.7 % 06/08/23 16:22 [place] % (Auto) 6.9 % 06/08/23 16:22 Eos % (Auto) 1.5 % 06/08/23 16:22 Baso % (Auto) 0.5 % 06/08/23 16:22 Neut # (Auto) 5.09 10^3/uL (1.8-7.7) 06/08/23 16:22 Lymph # (Auto) 0.8 10^3/uL (0.8-4.8) 06/08/23 16:22 [place] # (Auto) 0.5 10^3/uL (0.2-0.9) 06/08/23 16:22 Eos # (Auto) 0.1 10^3/uL (0.0-0.8) 06/08/23 16:22 Baso # (Auto) 0.0 10^3/uL (0.0-0.1) 06/08/23 16:22 Nucleated RBC % (auto) 0 % 06/08/23 16:22 Nucleated RBCs # 0.0 /100WBC 06/08/23 16:22 PT 19.50 SECONDS (12.1-14.9) H 06/08/23 16:22 INR 1.59 (0.8-1.2) H 06/08/23 16:22 Sodium 139 mmol/L (136-145) 06/08/23 16:22 Potassium 3.7 mmol/L (3.5-5.1) 06/08/23 16:22 Chloride 104 mmol/L (98-107) 06/08/23 16:22 Carbon Dioxide 25 mmol/L (22-29) 06/08/23 16:22 Anion Gap 13.7 (5-19) 06/08/23 16:22 BUN 7 mg/dL (6-20) 06/08/23 16:22 Creatinine 0.7 mg/dL (0.5-0.9) 06/08/23 16:22 GFR Calculation 91.8 mL/min (90-130) 06/08/23 16:22 Glucose 93 mg/dL (65-115) 06/08/23 16:22 Calculated Osmolality 286 mOsm/kg (285-295) 06/08/23 16:22 Calcium 9.4 mg/dL (8.5-10.5) 06/08/23 16:22 Total Bilirubin 0.6 mg/dL (0.15-1.2) 06/08/23 16:22 AST 21 U/L (0-32) 06/08/23 16:22 ALT 18 U/L (0-33) 06/08/23 16:22 Alkaline Phosphatase 92 U/L (35-105) 06/08/23 16:22 Total Protein 7.2 g/dL (6.6-8.7) 06/08/23 16:22 Albumin 4.2 g/dL (3.5-5.2) 06/08/23 16:22 Globulin 3.0 g/dL (1.3-4.6) 06/08/23 16:22 All radiology interpretation(s) finalized by discharge Discharge Plan Discharge Patient Disposition: Home Clinical Impression: Anticoagulation goal of INR 2 to 3, Headache HTN (hypertension) Qualifiers: Hypertension type: primary hypertension Qualified Code(s): I10 - Essential (primary) hypertension CVA (cerebral vascular accident) Qualifiers: CVA mechanism: unspecified Qualified Code(s): I63.9 - Cerebral infarction, unspecified Condition: Stable Prescriptions: No Action Kyleena 17.5 mcg/24 hrs (5 yrs) 19.5 mg intrauterine device See Rx Instructions .ROUTE .COMPLEX Rx Instructions: intrauterinely DIRECTED atorvastatin 40 mg tablet 40 mg PO QPM 90 Days Qty: 90 1RF potassium chloride 8 mEq tablet extended release 16 meq PO TID 30 Days Qty: 180 5RF duloxetine 60 mg capsule,delayed release(DR/EC) 60 mg PO QAM 30 Days Qty: 30 3RF leflunomide 20 mg tablet 20 mg PO DAILY Qty: 30 3RF Hold Instructions: Doctor's Order warfarin 4 mg tablet See Rx Instructions .ROUTE .COMPLEX Qty: 30 0RF Protocol: Dose Management Condition: Monday Dose/Route: 4 mg Instruction: 1 x 4 mg tablet Condition: Monday Dose/Route: 3 mg Instruction: 1 x 3 mg tablet Condition: Monday Dose/Route: 4 mg Instruction: 1 x 4 mg tablet Condition: Monday Dose/Route: 3 mg Instruction: 1 x 3 mg tablet Condition: Dose/Route: 4 mg Instruction: 1 x 4 mg tablet Condition: Monday Dose/Route: 3 mg Instruction: 1 x 3 mg tablet Condition: Monday Dose/Route: 4 mg Instruction: 1 x 4 mg tablet Protocol Text: Adjustment Start Date: 05/18/23 INR Value: 34.50 SECONDS INR Date: 05/15/23 Recheck Date: 05/25/23 Dose Instruction: TAKE 1 TABLET BY MOUTH ONCE DAILY FOR 30 DAYS DIRECTED BY DOCTOR Rx Instructions: TAKE 1 TABLET BY MOUTH MONDAY, MONDAY, MONDAY AND MONDAY warfarin 3 mg tablet See Rx Instructions .ROUTE .COMPLEX Protocol: Dose Management Condition: Monday Dose/Route: 4 mg Instruction: 1 x 4 mg tablet Condition: Monday Dose/Route: 3 mg Instruction: 1 x 3 mg tablet Condition: Monday Dose/Route: 4 mg Instruction: 1 x 4 mg tablet Condition: Monday Dose/Route: 3 mg Instruction: 1 x 3 mg tablet Condition: Dose/Route: 4 mg Instruction: 1 x 4 mg tablet Condition: Monday Dose/Route: 3 mg Instruction: 1 x 3 mg tablet Condition: Monday Dose/Route: 4 mg Instruction: 1 x 4 mg tablet Protocol Text: Adjustment Start Date: 05/18/23 INR Value: 34.50 SECONDS INR Date: 05/15/23 Recheck Date: 05/25/23 Rx Instructions: tAKE 1 TABLET BY MOUTH MARGUERITE STUART lorazepam 2 mg tablet See Rx Instructions .ROUTE .COMPLEX PRN (Reason: sedation) Rx Instructions: 2 mg buccally as needed ;Use 1 tablet as needed for seizure lamotrigine 200 mg tablet extended release 24hr 200 mg PO BID Discharge Orders: Discharge ED (Routine); Ordered 06/08/23 Ordered By: Jack Mojica Referrals: Virginia Meyer MD [Primary Care Provider] - Discharge Diet: Usual diet Discharge Activity: Increase activity as tolerated Patient Instructions: Opioid Safety, Pain Management Activity Restrictions/Additional Instructions: Thank you for choosing [facility] for your healthcare needs today. Please realize this is an emergency room and that we are providing you with a medical screening exam and this may not be complete and all inclusive of all the testing and or work up that you may need to determine your ailment or severity of your illness. It is very important that you follow up as instructed or that you return to the Emergency Department should you have concerns or if your condition changes or worsens in any way. You were seen today for headache. CT did not show any acute changes your exam did not show any new neurologic deficits. Your INR was slightly low recommend you take 6 mg of Coumadin daily for the next 3 days then resume your usual pattern. Follow-up with a repeat INR in 1 week at your doctor's office. Coding Level of Care Code ED Advanced Manufacturing Engineer for Victoria Arcos
[2023-06-08 16:24] VITALS: BP 115/88; PULSE 76; RESP 18; O2SAT 99
[2023-06-08 16:27] LABS: Basophils % 0.5 %; Eosinophils # 0.1 10^3/uL (0.0-0.8); Eosinophils % 1.5 %; Hematocrit 42.6 % (36-47); Lymphocytes # 0.8 10^3/uL (0.8-4.8); Lymphocytes % 12.7 %; Mean Corpuscular HGB Conc 33.1 g/dL (30-55); Mean Corpuscular Hemoglobin 32.3 pg (27-33); Mean Corpuscular Volume 97.7 fl (85-98); Mean Platelet Volume 11.9 fL (7.4-10.4); Monocytes # 0.5 10^3/uL (0.2-0.9); Monocytes % 6.9 %; Neutrophils # 5.09 10^3/uL (1.8-7.7); Neutrophils % 78.1 %; Nucleated Red Blood Cells % 0 %; Platelet Count 155 10^3/cmm (157-399); Red Blood Count 4.36 10^6/uL (3.85-5.65); Red Cell Distribution Width 14.6 % (12.1-15.1); White Blood Count 6.52 10^3/uL (3.29-11.43)
[2023-06-08 17:02] LABS: Alanine Aminotransferase 18 U/L (0-33); Albumin Level 4.2 g/dL (3.5-5.2); Alkaline Phosphatase 92 U/L (35-105); Anion Gap 13.7 (5-19); Aspartate Amino Transferase 21 U/L (0-32); Blood Urea Nitrogen 7 mg/dL (6-20); Calcium 9.4 mg/dL (8.5-10.5); Carbon Dioxide 25 mmol/L (22-29); Chloride 104 mmol/L (98-107); Glomerular Filtration Rate 91.8 mL/min (90-130); Glucose 93 mg/dL (65-115); Osmolality Calculated 286 mOsm/kg (285-295); Potassium 3.7 mmol/L (3.5-5.1); Sodium 139 mmol/L (136-145); Total Bilirubin 0.6 mg/dL (0.15-1.2); Total Protein 7.2 g/dL (6.6-8.7)
[2023-06-08 17:08] LABS: INR 1.59 (0.8-1.2)
[2023-06-08] MEDS: acetaminophen 500 mg Tablet 1000 MG PO (19:00)
[2023-06-08 19:37] VITALS: BP 125/83; PULSE 73; RESP 20; O2SAT 98
== END 2023-06-08 19:38 | disposition home or self-care (01) ==
PROVIDERS: Emergency Provider Family Medicine; PCP Family Medicine
DX: I10 Essential (primary) hypertension (principal); I63.9 Cerebral infarction, unspecified; R51.9 Headache, unspecified; Z79.01 Long term (current) use of anticoagulants; F17.210 Nicotine dependence, cigarettes, uncomplicated; Z86.73 Personal history of transient ischemic attack (TIA), and cerebral infarction without residual deficits
CPT/HCPCS: 70450; 80053; 85025; 85610; 93005; 99285

== ENCOUNTER → 2023-06-09 08:39 | Outpatient (BNVA) | payer BC, MEDICAID, SELFPAY | PROVIDERS: PCP Family Medicine; Visit Provider Family Medicine | DX: K52.9 Noninfective gastroenteritis and colitis, unspecified (principal) | CPT/HCPCS: 87045; 87177; 87209; 87427; 87449 ==

== ENCOUNTER 2023-06-15 10:02 | Outpatient (CLI) | payer BC, MEDICAID, SELFPAY ==
--- NOTE | 2023-06-15 10:15 | US_ITS ---
WS: [id number] ULTRASOUND BREAST BILATERAL TECHNIQUE: Ultrasound bilateral breast focused area of concern. CLINICAL INFORMATION: N60.01 - Solitary cyst of right breast COMPARISON: 12/15/2022 FINDINGS: RIGHT BREAST: 11:00 complex cyst measures 6.1 x 6.3 x 5.9 mm. This is stable compared to previous. LEFT BREAST: Complex LEFT breast cyst 12 o'clock position 1 cm from the nipple measures 9.4 x 9.7 x 8 .0 mm decreased in size compared to previous. LEFT breast cyst 1 o'clock position at the areola measures 9.0 x 8.8 x 8.0 mm also decreased in size compared to previous. IMPRESSION: Stable bilateral breast cysts. BI-RADS 2 benign Recommend return to annual screening mammography
== END 2023-06-15 10:03 | disposition home or self-care (01) ==
LOC: RAD 10:02
PROVIDERS: PCP Family Medicine; Visit Provider Family Medicine
DX: N60.01 Solitary cyst of right breast (principal); N60.02 Solitary cyst of left breast
CPT/HCPCS: 76642

== ENCOUNTER 2023-06-20 10:03 | Emergency (ER) | payer BC, MEDICAID, SELFPAY ==
[2023-06-20 10:14] VITALS: BP 131/89; PULSE 94; RESP 18; O2SAT 98; BMI 23.7
[2023-06-20 10:20] VITALS: BP 103/75; PULSE 96; RESP 18; TEMP 36.6; O2SAT 100
--- NOTE | 2023-06-20 10:20 | ECG_ITS ---
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 Measurements Intervals [place] Rate: 93 P: 61 [place]: 144 QRS: 47 QRSD: 88 T: 67 QT: 356 QTc: 443 Interpretive Statements SINUS RHYTHM POSSIBLE LEFT ATRIAL ENLARGEMENT [-0.1mV P-WAVE IN V1/V2] POSSIBLE RIGHT VENTRICULAR CONDUCTION DELAY [RSR (QR) IN V1/V2] Compared to ECG 06/08/2023 15:50:32 No significant changes Electronically Signed On 06-20-2023 11:43:14 BRAND MGR by Heri Calvillo M.D. [id number] f
--- NOTE | 2023-06-20 10:42 | PC.PHAR ---
PT STATES TAKING 4 MG DAILY. PTS ALSO STATES HE WANTS PROVIDER TO LET DR NAM KNOW HE IS HERE. HE HAS APPT. WITH HER OFFICE TOMORROW AND WANTS HER TO SEE HIM HERE TODAY. I JUST NOTED IT FOR HIM.
[2023-06-20 10:47] LABS: Basophils % 0.6 %; Eosinophils # 0.1 10^3/uL (0.0-0.8); Eosinophils % 1.4 %; Hematocrit 42.9 % (36-47); Lymphocytes # 0.8 10^3/uL (0.8-4.8); Lymphocytes % 11.9 %; Mean Corpuscular HGB Conc 33.6 g/dL (30-55); Mean Corpuscular Hemoglobin 32.7 pg (27-33); Mean Corpuscular Volume 97.5 fl (85-98); Mean Platelet Volume 11.7 fL (7.4-10.4); Monocytes # 0.4 10^3/uL (0.2-0.9); Monocytes % 5.6 %; Neutrophils # 5.34 10^3/uL (1.8-7.7); Nucleated Red Blood Cells % 0 %; Platelet Count 144 10^3/cmm (157-399); Red Cell Distribution Width 13.3 % (12.1-15.1); White Blood Count 6.66 10^3/uL (3.29-11.43)
[2023-06-20 10:59] LABS: Alanine Aminotransferase 12 U/L (0-33); Albumin Level 4.8 g/dL (3.5-5.2); Alkaline Phosphatase 92 U/L (35-105); Anion Gap 16.4 (5-19); Aspartate Amino Transferase 19 U/L (0-32); Blood Urea Nitrogen 7 mg/dL (6-20); Calcium 10.1 mg/dL (8.5-10.5); Carbon Dioxide 23 mmol/L (22-29); Chloride 103 mmol/L (98-107); Globulin 2.9 g/dL (1.3-4.6); Glomerular Filtration Rate 78.7 mL/min (90-130); Glucose 83 mg/dL (65-115); Osmolality Calculated 285 mOsm/kg (285-295); Potassium 3.4 mmol/L (3.5-5.1); Sodium 139 mmol/L (136-145); Total Bilirubin 0.8 mg/dL (0.15-1.2); Total Protein 7.7 g/dL (6.6-8.7)
--- NOTE | 2023-06-20 11:19 | ED_ITS ---
HPI - Recheck/Abnormal Lab/Rx 2 General: Chief Complaint: Recheck/Abnormal Lab/Rx Stated Complaint: critically thick blood,previous stroke Time Seen by Provider: 06/20/23 10:17 Source: patient Mode of arrival: ambulatory History of Present Illness: 42-year-old female history of antiphosph olipid antibody syndrome who presents emergency room with a low INR. 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 We seen her 2 weeks ago at that time she was subtherapeutic on her Coumadin but she had no new deficits. CT did not show any significant abnormalities and she had no neurologic deficits we asked her to double her Coumadin dose for 3 days. Unfortunately she has single day at elevated dose and then went back to her regular dose subsequently she had more symptoms was seen at [facility] then transferred to [facility] for an MRI was done showed that she had a recent stroke. She came into her doctor's office today had an INR done that was subtherapeutic and again at 1. She is not currently having any focal neurologic deficits or headache. Symptoms since prior visit: no new symptoms Associated symptoms: none Review of Systems 2 Const: Denies: fever(s) or chills Card: Denies: chest pain Resp: Denies: dyspnea PFSH ED 2 PFSH: Medical History High risk medication use Inflammatory arthritis Mood disorder due to a general medical condition Psychiatric care Anticoagulated with warfarin HTN (hypertension) Anticoagulation goal of INR 2 to 3 CVA (cerebral vascular accident) Complex partial epilepsy with generalization Surgical History H/O dilation and curettage x2 - 2004, 2007 H/O section Family History Father Cancer brain cancer - Diabetes Family/Other Thyroid disease x2 Maternal Aunt - unsure Other Lupus Rheumatoid arthritis Denies family history of Ovarian cyst Clotting disorder Hyperlipidemia Chronic kidney disease (CKD) Suicide Bleeding disorder Lung disease Hypertension Stroke Social History Smoking and tobacco/nicotine status: current every day tobacco/nicotine user cigarettes Packs smoked per day: 1 Alcohol intake: never Substance/Drug Use: never Female Reproductive History: Spontaneous abortions: No Physical Exam 2 Const: COMMON NORMALS: no acute distress GENERAL APPEARANCE: cooperative and comfortable ORIENTATION/CONSCIOUSNESS: Yes awake, Yes oriented to person, Yes oriented to place and Yes oriented to time HENMT: COMMON NORMALS: normocephalic, atraumatic and hearing grossly normal bilaterally HEAD & SCALP: normocephalic and atraumatic Resp: COMMON NORMALS: normal respiratory effort Neuro: SENSORIUM/ORIENTATION: Yes oriented to person, Yes oriented to place and Yes oriented to time Course 2 Vital Signs: Vital signs: Vital Signs Temperature 97.8 F 06/20/23 10:20 Pulse Rate 96 06/20/23 10:20 Respiratory Rate 18 06/20/23 10:20 Blood Pressure 103/75 06/20/23 10:20 Pulse Oximetry 100 06/20/23 10:20 Oxygen Delivery Me thod Room Air 06/20/23 10:20 MDM - Recheck/Abnormal Lab/Rx Medical Decision Making Reviewed literature on up-to-date search. Currently do not recommend and need to DOACs because they have been shown to be inferior to Coumadin. There is recommendation that the INR be maintained at greater than 3 it has been shown to decrease arterial thrombotic events. Additionally there is also studies that show Coumadin in combination with aspirin decrease events as well. Will bridge her with Coumadin at 1 mg/kg every 12 hours for the next at least 3 days she was given the first dose here in the emergency room. Called in a prescription at 70 mg twice daily gave her enough for 5 days initially. Recommend that she take Coumadin 10 mg daily for the next 3 days and recheck an INR in her doctor's office on Monday. She has an upcoming appoint with Dr. Spangler as well she should keep that also. Discussed these changes with Dr. Spangler she concurs and plans on seeing the patient in follow-up at her currently scheduled appointment. Medical Records I reviewed the patient's medical records. Lab Data I reviewed the patient's lab results. 06/20/23 10:32 06/20/23 10:32 Laboratory Results WBC 6.66 10^3/uL (3.29-11.43) 06/20/23 10:32 RBC 4.40 10^6/uL (3.85-5.65) 06/20/23 10:32 Hgb 14.40 g/dL (11.27-16.99) 06/20/23 10:32 Hct 42.9 % (36-47) 06/20/23 10:32 MCV 97.5 fl (85-98) 06/20/23 10:32 MCH 32.7 pg (27-33) 06/20/23 10:32 MCHC 33.6 g/dL (30-55) 06/20/23 10:32 RDW 13.3 % (12.1-15.1) 06/20/23 10:32 Plt Count 144 10^3/cmm (157-399) L 06/20/23 10:32 MPV 11.7 fL (7.4-10.4) H 06/20/23 10:32 Neut % (Auto) 80.0 % 06/20/23 10:32 Lymph % (Auto) 11.9 % 06/20/23 10:32 Marshall % (Auto) 5.6 % 06/20/23 10:32 Eos % (Auto) 1.4 % 06/20/23 10:32 Baso % (Auto) 0.6 % 06/20/23 10:32 Neut # (Auto) 5.34 10^3/uL (1.8-7.7) 06/20/23 10:32 Lymph # (Auto) 0.8 10^3/uL (0.8-4.8) 06/20/23 10:32 Marshall # (Auto) 0.4 10^3/uL (0.2-0.9) 06/20/23 10:32 Eos # (Auto) 0.1 10^3/uL (0.0-0.8) 06/20/23 10:32 Baso # (Auto) 0.0 10^3/uL (0.0-0.1) 06/20/23 10:32 Nucleated RBC % (auto) 0 % 06/20/23 10:32 Nucleated RBCs # 0.0 /100WBC 06/20/23 10:32 PT 15.10 SECONDS (12.1-14.9) H 06/20/23 10:32 INR 1.15 (0.8-1.2) 06/20/23 10:32 Sodium 139 mmol/L (136-145) 06/20/23 10:32 Potassium 3.4 mmol/L (3.5-5.1) L 06/20/23 10:32 Chloride 103 mmol/L (98-107) 06/20/23 10:32 Carbon Dioxide 23 mmol/L (22-29) 06/20/23 10:32 Anion Gap 16.4 (5-19) 06/20/23 10:32 BUN 7 mg/dL (6-20) 06/20/23 10:32 Creatinine 0.8 mg/dL (0.5-0.9) 06/20/23 10:32 GFR Calculation 78.7 mL/min (90-130) L 06/20/23 10:32 Glucose 83 mg/dL (65-115) 06/20/23 10:32 Calculated Osmolality 285 mOsm/kg (285-295) 06/20/23 10:32 Calcium 10.1 mg/dL (8.5-10.5) 06/20/23 10:32 Total Bilirubin 0.8 mg/dL (0.15-1.2) 06/20/23 10:32 AST 19 U/L (0-32) 06/20/23 10:32 ALT 12 U/L (0-33) 06/20/23 10:32 Alkaline Phosphatase 92 U/L (35-105) 06/20/23 10:32 Total Protein 7.7 g/dL (6.6-8.7) 06/20/23 10:32 Albumin 4.8 g/dL (3.5-5.2) 06/20/23 10:32 Globulin 2.9 g/dL (1.3-4.6) 06/20/23 10:32 No radiology studies performed this visit Discharge Plan Discharge Patient Disposition: Home Clinical Impression: Anti-phospholipid antibody syndrome Condition: Stable Prescriptions: New aspirin 81 mg tablet,delayed release (DR/EC) 81 mg PO DAILY Qty: 30 0RF warfarin 5 mg tablet 10 mg PO DAILY Qty: 14 0RF Lovenox 80 mg/0.8 mL syringe 70 mg SUBCUT Q12H Qty: 8 0RF No Action Kyleena 17.5 mcg/24 hrs (5 yrs) 19.5 mg intrauterine device See Rx Instructions .ROUTE .COMPLEX Rx Instructions: intrauterinely DIRECTED atorvastatin 40 mg tablet 40 mg PO QPM 90 Days Qty: 90 1RF potassium chloride 8 mEq tablet extended release 16 meq PO TID 30 Days Qty: 180 5RF duloxetine 60 mg capsule,delayed release(DR/EC) 60 mg PO QAM 30 Days Qty: 30 3RF leflunomide 20 mg tablet 20 mg PO DAILY Qty: 30 3RF Hold Instructions: Doctor's Order lorazepam 2 mg tablet 2 mg sublingual PRN PRN (Reason: Seizure Activity) lamotrigine 200 mg tablet extended release 24hr 200 mg PO BID warfarin 4 mg tablet 4 mg PO DAILY Protocol: Dose Management Condition: Monday Dose/Route: 4 mg Instruction: 1 x 4 mg tablet Condition: Monday Dose/Route: 3 mg Instruction: 1 x 3 mg tablet Condition: Monday Dose/Route: 4 mg Instruction: 1 x 4 mg tablet Condition: Monday Dose/Route: 3 mg Instruction: 1 x 3 mg tablet Condition: Dose/Route: 4 mg Instruction: 1 x 4 mg tablet Condition: Monday Dose/Route: 3 mg Instruction: 1 x 3 mg tablet Condition: Monday Dose/Route: 4 mg Instruction: 1 x 4 mg tablet Protocol Text: Adjustment Start Date: 05/18/23 INR Value: 34.50 SECONDS INR Date: 05/15/23 Recheck Date: 05/25/23 Discharge Orders: Discharge ED (Routine); Ordered 06/20/23 Ordered By: Jack Mojica Referrals: Virginia Meyer MD [Primary Care Provider] - Discharge Diet: Usual diet Discharge Activity: Increase activity as tolerated Patient Instructions: Opioid Safety, Pain Management Activity Restrictions/Additional Instructions: Thank you for choosing [facility] for your healthcare needs today. Please realize this is an emergency room and that we are providing you with a medical screening exam and this may not be complete and all inclusive of all the testing and or work up that you may need to determine your ailment or severity of your illness. It is very important that you follow up as instructed or that you return to the Emergency Department should you have concerns or if your condition changes or worsens in any way. You were seen today for subtherapeutic INR. In doing research and discussing your case with Dr. Spangler we recommend the following. Add aspirin 81 mg daily along with Coumadin as this has been shown to decrease the risk of recurrent arterial thrombosis events. You should bridge with Lovenox 70 mg twice a day for the next 3 days. Coumadin 10 mg once daily for the next 3 days and 3 days have your INR checked at your primary care doctor's office. At that time depending on your INR you may be able to discontinue the Lovenox. There are some studies showing that a higher INR of greater than 3 is beneficial in patients with antiphospholipid antibody syndrome and arterial thrombosis discussed with your neurologist and your primary care doctor. Coding Level of Care Code ED Superintendent Division for Victoria Arcos
[2023-06-20 11:21] LABS: INR 1.15 (0.8-1.2)
[2023-06-20] MEDS: enoxaparin 80 mg/0.8 mL Syringe 70 MG SUBCUT (12:37)
== END 2023-06-20 12:37 | disposition home or self-care (01) ==
PROVIDERS: Emergency Provider Family Medicine; PCP Family Medicine
DX: D68.61 Antiphospholipid syndrome (principal); Z79.01 Long term (current) use of anticoagulants; F17.210 Nicotine dependence, cigarettes, uncomplicated; Z86.73 Personal history of transient ischemic attack (TIA), and cerebral infarction without residual deficits
CPT/HCPCS: 80053; 85025; 85610; 93005; 96372; 99284; J1650

== ENCOUNTER → 2023-06-23 08:53 | Outpatient (BNVA) | payer BC, MEDICAID, SELFPAY | PROVIDERS: PCP Family Medicine; Referring Provider Family Medicine; Visit Provider Family Medicine | DX: Z51.81 Encounter for therapeutic drug level monitoring (principal); Z79.01 Long term (current) use of anticoagulants | CPT/HCPCS: 85610 ==

== ENCOUNTER → 2023-06-26 11:54 | Outpatient (BNVA) | payer BC, MEDICAID, SELFPAY | PROVIDERS: PCP Family Medicine; Referring Provider Family Medicine; Visit Provider Family Medicine | DX: Z51.81 Encounter for therapeutic drug level monitoring (principal); Z79.01 Long term (current) use of anticoagulants | CPT/HCPCS: 85610 ==

== ENCOUNTER 2023-06-27 09:58 | Outpatient (CLI) | payer BC, MEDICAID, SELFPAY ==
--- NOTE | 2023-06-27 10:15 | MR_ITS ---
WS: [id number] MRI BRAIN WITH AND WITHOUT CONTRAST HISTORY: G40.109 - Localization-related (focal) (partial) symptoma... COMPARISON: Stroke and history of seizures. TECHNIQUE: Multiplanar imaging performed through the brain with MultiHance 15 ml's IV. No acute infarcts are seen. Perez-white matter differentiation is well preserved. Mild small vessel is chemic type changes in the periventricular white matter. There is a prior infarct involving the RIGHT temporal occipital lobe with cortical laminar necrosis. No enhancement is noted in the region of the cortical laminar necrosis. There is no underlying mass identified. Mild hemosiderin is noted along the area of cortical laminar necrosis. Ventricles and extra-axial spaces are normal. Clivus and pituitary gland are normal. Visualized posterior fossa and brainstem are also normal. Postcontrast images are negative for masses or vascular malformations. Dural venous sinuses are normal. Paranasal sinuses: Well aerated with no significant disease. Mastoid air cells: Normal. Calvarium and scalp: Normal. IMPRESSION: 1. Normal diffusion imaging. No acute infarct. 2. Remote infarct with volume loss and encephalomalacia involving the RIGHT temporal occipital lobe with cortical laminar necrosis. 3. No acute mass or abnormal enhancement. 4. Normal hippocampal formations.
[2023-06-27] MEDS: gadobenate dimeglumine 20 mL vial IV (11:08)
== END 2023-06-27 09:59 | disposition home or self-care (01) ==
LOC: RAD 09:59
PROVIDERS: PCP Family Medicine; Visit Provider Specialist
DX: G40.109 Localization-related (focal) (partial) symptomatic epilepsy and epileptic syndromes with simple partial seizures, not intractable, without status epilepticus (principal); I69.398 Other sequelae of cerebral infarction; G93.89 Other specified disorders of brain; I67.89 Other cerebrovascular disease
CPT/HCPCS: 70553; A9577

== ENCOUNTER → 2023-06-29 15:36 | Outpatient (BNVA) | payer BC, MEDICAID, SELFPAY | PROVIDERS: PCP Family Medicine; Visit Provider Emergency Medicine | DX: Z51.81 Encounter for therapeutic drug level monitoring (principal); Z79.01 Long term (current) use of anticoagulants; M77.8 Other enthesopathies, not elsewhere classified | CPT/HCPCS: 85610 ==

== ENCOUNTER → 2023-07-04 17:27 | Outpatient (BNVA) | payer BC, SELFPAY | PROVIDERS: PCP Family Medicine; Visit Provider Family Medicine | DX: Z51.81 Encounter for therapeutic drug level monitoring (principal); Z79.01 Long term (current) use of anticoagulants | CPT/HCPCS: 85610 ==

== ENCOUNTER → 2023-07-11 12:09 | Outpatient (BNVA) | payer BC, SELFPAY | PROVIDERS: PCP Family Medicine; Referring Provider Family Medicine; Visit Provider Family Medicine | DX: Z51.81 Encounter for therapeutic drug level monitoring (principal); Z79.01 Long term (current) use of anticoagulants | CPT/HCPCS: 85610 ==

== ENCOUNTER → 2023-07-18 15:21 | Outpatient (BNVA) | payer BC, SELFPAY | PROVIDERS: PCP Family Medicine; Visit Provider Counselor Mental Health | DX: Z51.81 Encounter for therapeutic drug level monitoring (principal); Z79.01 Long term (current) use of anticoagulants | CPT/HCPCS: 85610 ==

== ENCOUNTER → 2023-07-21 10:46 | Outpatient (BNVA) | payer BC, SELFPAY | PROVIDERS: PCP Family Medicine; Visit Provider Family Medicine | DX: Z51.81 Encounter for therapeutic drug level monitoring (principal); Z79.01 Long term (current) use of anticoagulants | CPT/HCPCS: 85610 ==

== ENCOUNTER → 2023-07-24 12:08 | Outpatient (BNVA) | payer BC, SELFPAY | PROVIDERS: PCP Family Medicine; Referring Provider Family Medicine; Visit Provider Family Medicine | DX: Z51.81 Encounter for therapeutic drug level monitoring (principal); Z79.01 Long term (current) use of anticoagulants | CPT/HCPCS: 85610 ==

== ENCOUNTER → 2023-07-28 12:36 | Outpatient (BNVA) | payer BC, SELFPAY | PROVIDERS: PCP Family Medicine; Referring Provider Family Medicine; Visit Provider Family Medicine | DX: Z51.81 Encounter for therapeutic drug level monitoring (principal); Z79.01 Long term (current) use of anticoagulants | CPT/HCPCS: 85610 ==

== ENCOUNTER → 2023-08-01 12:00 | Outpatient (BNVA) | payer BC, SELFPAY | PROVIDERS: PCP Family Medicine; Referring Provider Family Medicine; Visit Provider Family Medicine | DX: Z51.81 Encounter for therapeutic drug level monitoring (principal); Z79.01 Long term (current) use of anticoagulants | CPT/HCPCS: 85610 ==

== ENCOUNTER → 2023-08-08 11:09 | Outpatient (BNVA) | payer BC, MEDICAID, SELFPAY | PROVIDERS: PCP Family Medicine; Visit Provider Family Medicine | DX: D68.61 Antiphospholipid syndrome (principal); Z51.81 Encounter for therapeutic drug level monitoring; Z79.01 Long term (current) use of anticoagulants | CPT/HCPCS: 85610 ==

== ENCOUNTER → 2023-08-11 09:52 | Outpatient (BNVA) | payer BC, MEDICAID, SELFPAY | PROVIDERS: PCP Family Medicine; Referring Provider Family Medicine; Visit Provider Family Medicine | DX: Z51.81 Encounter for therapeutic drug level monitoring (principal); Z79.01 Long term (current) use of anticoagulants; D68.61 Antiphospholipid syndrome | CPT/HCPCS: 85610 ==

== ENCOUNTER → 2023-08-14 11:57 | Outpatient (BNVA) | payer BC, MEDICAID, SELFPAY | PROVIDERS: PCP Family Medicine; Visit Provider Family Medicine | DX: Z51.81 Encounter for therapeutic drug level monitoring (principal); Z79.01 Long term (current) use of anticoagulants | CPT/HCPCS: 85610 ==

== ENCOUNTER → 2023-08-17 12:19 | Outpatient (BNVA) | payer BC, SELFPAY | PROVIDERS: PCP Family Medicine; Referring Provider Family Medicine; Visit Provider Family Medicine | DX: Z51.81 Encounter for therapeutic drug level monitoring (principal); Z79.01 Long term (current) use of anticoagulants; Z79.899 Other long term (current) drug therapy | CPT/HCPCS: 85610 ==

== ENCOUNTER → 2023-08-21 12:14 | Outpatient (BNVA) | payer BC, SELFPAY | PROVIDERS: PCP Family Medicine; Referring Provider Family Medicine; Visit Provider Family Medicine | DX: Z51.81 Encounter for therapeutic drug level monitoring (principal); Z79.01 Long term (current) use of anticoagulants; Z79.899 Other long term (current) drug therapy | CPT/HCPCS: 85610 ==

== ENCOUNTER → 2023-08-28 13:57 | Outpatient (BNVA) | payer BC, SELFPAY | PROVIDERS: PCP Family Medicine; Visit Provider Family Medicine | DX: Z51.81 Encounter for therapeutic drug level monitoring (principal); Z79.01 Long term (current) use of anticoagulants | CPT/HCPCS: 85610 ==

== ENCOUNTER → 2023-09-04 17:54 | Outpatient (BNVA) | payer BC, SELFPAY | PROVIDERS: PCP Family Medicine; Referring Provider Family Medicine; Visit Provider Family Medicine | DX: Z51.81 Encounter for therapeutic drug level monitoring (principal); Z79.01 Long term (current) use of anticoagulants | CPT/HCPCS: 85610 ==

== ENCOUNTER → 2023-09-06 15:28 | Outpatient (BNVA) | payer BC, SELFPAY | PROVIDERS: PCP Family Medicine; Visit Provider Internal Medicine Rheumatology | DX: Z79.899 Other long term (current) drug therapy (principal); M19.90 Unspecified osteoarthritis, unspecified site | CPT/HCPCS: 36415; 80076; 82565; 85025; 85651; 86140 ==

== ENCOUNTER → 2023-09-11 12:07 | Outpatient (BNVA) | payer BC, SELFPAY | PROVIDERS: PCP Family Medicine; Visit Provider Psychiatry & Neurology Psychiatry | DX: Z51.81 Encounter for therapeutic drug level monitoring (principal); Z79.01 Long term (current) use of anticoagulants | CPT/HCPCS: 85610 ==

== ENCOUNTER → 2023-09-18 14:47 | Outpatient (BNVA) | payer BC, SELFPAY | PROVIDERS: PCP Family Medicine; Visit Provider Family Medicine | DX: Z51.81 Encounter for therapeutic drug level monitoring (principal); Z79.01 Long term (current) use of anticoagulants | CPT/HCPCS: 85610 ==

== ENCOUNTER → 2023-09-25 12:11 | Outpatient (BNVA) | payer BC, SELFPAY | PROVIDERS: PCP Family Medicine; Referring Provider Family Medicine; Visit Provider Family Medicine | DX: Z51.81 Encounter for therapeutic drug level monitoring (principal); Z79.01 Long term (current) use of anticoagulants | CPT/HCPCS: 85610 ==

== ENCOUNTER → 2023-09-28 12:31 | Outpatient (BNVA) | payer BC, SELFPAY | PROVIDERS: PCP Family Medicine; Visit Provider Family Medicine | DX: Z51.81 Encounter for therapeutic drug level monitoring (principal); Z79.01 Long term (current) use of anticoagulants | CPT/HCPCS: 85610 ==

== ENCOUNTER → 2023-10-05 12:12 | Outpatient (BNVA) | payer BC, SELFPAY | PROVIDERS: PCP Family Medicine; Visit Provider Family Medicine | DX: Z51.81 Encounter for therapeutic drug level monitoring (principal); Z79.01 Long term (current) use of anticoagulants | CPT/HCPCS: 85610 ==

== ENCOUNTER → 2023-10-12 07:49 | Outpatient (BNVA) | payer BC, MEDICAID, SELFPAY | PROVIDERS: PCP Family Medicine; Referring Provider Family Medicine; Visit Provider Physician Assistant | DX: M65.4 Radial styloid tenosynovitis [de Quervain] (principal) | CPT/HCPCS: 73110 ==

== ENCOUNTER 2023-10-12 18:15 | Emergency (ER) | payer BC, MEDICAID, SELFPAY ==
[2023-10-12] VITALS (9 sets, daily range): BP systolic 107–140; BP diastolic 84–101; PULSE 78–89; RESP 14–21; TEMP 36.7; O2SAT 93–99; BMI 24.7
[2023-10-12 19:07] LABS: Basophils # 0.1 10^3/uL (0.0-0.1); Basophils % 0.7 %; Eosinophils # 0.2 10^3/uL (0.0-0.8); Lymphocytes # 1.4 10^3/uL (0.8-4.8); Lymphocytes % 18.3 %; Mean Corpuscular HGB Conc 34.7 g/dL (30-55); Mean Corpuscular Volume 92.5 fl (85-98); Mean Platelet Volume 11.7 fL (7.4-10.4); Monocytes # 0.5 10^3/uL (0.2-0.9); Monocytes % 6.2 %; Neutrophils # 5.41 10^3/uL (1.8-7.7); Neutrophils % 72.5 %; Nucleated Red Blood Cells % 0 %; Platelet Count 166 10^3/cmm (157-399); Red Blood Count 4.65 10^6/uL (3.85-5.65); Red Cell Distribution Width 14.5 % (12.1-15.1); White Blood Count 7.45 10^3/uL (3.29-11.43)
[2023-10-12 19:16] LABS: INR 3.04 (0.8-1.2)
--- NOTE | 2023-10-12 19:19 | ED_ITS ---
HPI - Headache 2 General: Chief Complaint: Headache Stated Complaint: Pulse Rate High\Strokes Before\Sharp Pain Head Time Seen by Provider: 10/12/23 18:26 History of Present Illness: Patient presents to the ER with complaints of headache and nausea. Patient has had a headache that is just pressure all over her head with intermittent episodes of sharp stabbing pain. Patient states that her blood pressure and her pulse has been high as well. Patient does have a history of 2 CVAs with the last one being in June 2023, patient also has antiphospholipid antibody syndrome and is on Coumadin to help prevent blood clots. Patient has no local neurologic lateralizing symptoms. Patient does see Dr. Spangler. Review of Systems 2 General: Reports: 10 or more systems reviewed and unremarkable except in HPI and below PFSH ED 2 PFSH: Medical History De Quervain's syndrome (tenosynovitis) Positive ALISSA (antinuclear antibody) High risk medication use Inflammatory arthritis Mood disorder due to a general medical condition Psychiatric care Anticoagulated with warfarin HTN (hypertension) Anticoagulation goal of INR 2 to 3 CVA (cerebral vascular accident) Complex partial epilepsy with generalization Surgical History H/O dilation and curettage x2 - 2004, 2007 H/O section Family History Father Cancer brain cancer - Diabetes Family/Other Thyroid disease x2 Maternal Aunt - unsure Other Lupus Rheumatoid arthritis Denies family history of Ovarian cyst Clotting disorder Hyperlipidemia Chronic kidney disease (CKD) Suicide Bleeding disorder Lung disease Hypertension Stroke Social History Smoking and tobacco/nicotine status: current every day tobacco/nicotine user cigarettes Packs smoked per day: 1 Alcohol intake: never Substance/Drug Use: never Female Reproductive History: Spontaneous abortions: No Physical Exam 2 Const: COMMON NORMALS: no acute distress, average body habitus, patient oriented x3, no limitations, healthy appearing, alert and well nourished HENMT: COMMON NORMALS: normocephalic, atraumatic, hearing grossly normal bilaterally, external ears normal, Normal external nose present, moist oral mucous membranes and oropharynx normal HEAD & SCALP: normocephalic and atraumatic NOSE: Normal external nose present EXTERNAL EAR: Yes external ears normal Neck/C-Spine: COMMON NORMALS: full ROM, no lymphadenopathy, supple, no meningeal signs, no JVD and Thyroid normal THYROID: Thyroid normal Chest: COMMONS NORMALS: normal inspection of the chest and normal palpation of entire chest wall Resp: COMMON NORMALS: normal respiratory effort, No retractions, No use of accessory muscles and clear to auscultation bilaterally AUSCULTATION: clear to auscultation bilaterally Cardio: COMMON NORMALS: no JVD, regular rate, regular rhythm, S1 normal heart sound present, S2 normal heart sound present, No gallops present (Cardio), No clicks present (Cardio), No murmurs present (Cardio) and No rub (Cardio) R ATE: regular rate RHYTHM: regular rhythm HEART SOUNDS: S1 normal heart sound present and S2 normal heart sound present GI: COMMON NORMALS: Normal to inspection, nondistended, normoactive bowel sounds present, Soft to palpation, non-tender, No hepatosplenomegaly present and no masses PALPATION: Yes Soft to palpation and Yes No hepatosplenomegaly present Neuro: COMMON NORMALS: patient oriented x3 SENSORIUM/ORIENTATION: Yes alert MENINGEAL SIGNS: Yes no meningeal signs Course 2 Vital Signs: Vital signs: Vital Signs Temperature 98.1 F 10/12/23 18:21 Pulse Rate 85 10/12/23 19:09 Respiratory Rate 20 H 10/12/23 18:21 Blood Pressure 140/97 10/12/23 19:09 Pulse Oximetry 98 10/12/23 19:09 MDM - Headache Medical Decision Making Physical exam was performed lab work was obtained which revealed a potassium of 2.8. Patient was given 40 mEq of oral potassium, 10 mg Reglan, 30 mg of Toradol, 50 mg of Benadryl and upon further evaluation her headache was pain- free. Patient be discharged home. Patient did not taking her potassium she has at home. She will be instructed to restart her potassium. Differential Diagnosis Likely headache; Unlikely migraine, tension headache, subarachnoid hemorrhage, meningitis, sinusitis or postconcussion syndrome Medical Records I reviewed the patient's medical records. Lab Data I reviewed the patient's lab results. 10/12/23 18:57 10/12/23 18:[address] 10/12/23 19:[address]: 1[address] evidence of acute intracranial pathology. 2. Additional findings, as above. Laboratory Results WBC 7.45 10^3/uL (3.29-11.43) 10/12/23 18:57 RBC 4.65 10^6/uL (3.85-5.65) 10/12/23 18:57 Hgb 14.90 g/dL (11.27-16.99) 10/12/23 18:57 Hct 43.0 % (36-47) 10/12/23 18:57 MCV 92.5 fl (85-98) 10/12/23 18:57 MCH 32.0 pg (27-33) 10/12/23 18:57 MCHC 34.7 g/dL (30-55) 10/12/23 18:57 RDW 14.5 % (12.1-15.1) 10/12/23 18:57 Plt Count 166 10^3/cmm (157-399) 10/12/23 18:57 MPV 11.7 fL (7.4-10.4) H 10/12/23 18:57 Neut % (Auto) 72.5 % 10/12/23 18:57 Lymph % (Auto) 18.3 % 10/12/23 18:57 Rowan % (Auto) 6.2 % 10/12/23 18:57 Eos % (Auto) 2.0 % 10/12/23 18:57 Baso % (Auto) 0.7 % 10/12/23 18:57 Neut # (Auto) 5.41 10^3/uL (1.8-7.7) 10/12/23 18:57 Lymph # (Auto) 1.4 10^3/uL (0.8-4.8) 10/12/23 18:57 Rowan # (Auto) 0.5 10^3/uL (0.2-0.9) 10/12/23 18:57 Eos # (Auto) 0.2 10^3/uL (0.0-0.8) 10/12/23 18:57 Baso # (Auto) 0.1 10^3/uL (0.0-0.1) 10/12/23 18:57 Nucleated RBC % (auto) 0 % 10/12/23 18:57 Nucleated RBCs # 0.0 /100WBC 10/12/23 18:57 PT 32.60 SECONDS (12.1-14.9) H 10/12/23 18:57 INR 3.04 (0.8-1.2) H 10/12/23 18:57 Sodium 140 mmol/L (136-145) 10/12/23 18:57 Potassium 2.8 mmol/L (3.5-5.1) L* 10/12/23 18:57 Chloride 102 mmol/L (98-107) 10/12/23 18:57 Carbon Dioxide 29 mmol/L (22-29) 10/12/23 18:57 Anion Gap 11.8 (5-19) 10/12/23 18:57 BUN 6 mg/dL (6-20) 10/12/23 18:57 Creatinine 0.7 mg/dL (0.5-0.9) 10/12/23 18:57 GFR Calculation 91.8 mL/min (90-130) 10/12/23 18:57 Glucose 89 mg/dL (65-115) 10/12/23 18:57 Calculated Osmolality 287 mOsm/kg (285-295) 10/12/23 18:57 Calcium 9.0 mg/dL (8.5-10.5) 10/12/23 18:57 Total Bilirubin 0.4 mg/dL (0.15-1.2) 10/12/23 18:57 AST 12 U/L (0-32) 10/12/23 18:57 ALT 7 U/L (0-33) 10/12/23 18:57 Alkaline Phosphatase 94 U/L (35-105) 10/12/23 18:57 C-Reactive Protein 3.0 mg/L (0.0-4.9) 10/12/23 18:57 Total Protein 6.7 g/dL (6.6-8.7) 10/12/23 18:57 Albumin 3.9 g/dL (3.5-5.2) 10/12/23 18:57 Globulin 2.8 g/dL (1.3-4.6) 10/12/23 18:57 Urine Color Yellow (Yellow) 10/12/23 20:29 Urine Appearance Clear (CLEAR) 10/12/23 20:29 Urine pH 6.5 (5-7) 10/12/23 20:29 Ur Specific [place] 1.005 (1.005-1.030) 10/12/23 20:29 Urine Protein Neg (Negative) 10/12/23 20:29 Urine Glucose (UA) Norm (Normal) 10/12/23 20:29 Urine Ketones Negative (Negative) 10/12/23 20:29 Urine Blood Neg (Negative) 10/12/23 20:29 Urine Nitrate Negative (Negative) 10/12/23 20:29 Urine Bilirubin Neg (Negative) 10/12/23 20:29 Urine Urobilinogen Neg mg/dL (Negative) 10/12/23 20:29 Ur Leukocyte Esterase Negative (Negative) 10/12/23 20:29 All radiology interpretation(s) finalized by discharge Discharge Plan Discharge Patient Disposition: Home Clinical Impression: Headache, Nausea, Acute hypokalemia Condition: Stable Prescriptions: No Action Kyleena 17.5 mcg/24 hrs (5 yrs) 19.5 mg intrauterine device See Rx Instructions .ROUTE .COMPLEX Rx Instructions: intrauterinely DIRECTED atorvastatin 40 mg tablet 40 mg PO QPM 90 Days Qty: 90 1RF potassium chloride 8 mEq tablet extended release 16 meq PO TID 30 Days Qty: 180 5RF leflunomide 20 mg tablet 20 mg PO DAILY Qty: 30 3RF Hold Instructions: Doctor's Order Lovenox 80 mg/0.8 mL syringe 70 mg SUBCUT Q12H Qty: 8 2RF duloxetine 60 mg capsule,delayed release(DR/EC) 60 mg PO QAM 30 Days Qty: 30 3RF Rx Instructions: Take with 30 mg capsule for daily total of 90 mg aspirin 81 mg tablet,delayed release (DR/EC) 81 mg PO DAILY 90 Days Qty: 90 3RF losartan 25 mg tablet 25 mg PO DAILY 90 Days Qty: 90 0RF Hold Instructions: Home Medication placed on hold at Doctor's office warfarin 6 mg tablet 6 mg PO DAILY Qty: 30 0RF Protocol: Dose Management Condition: Monday Dose/Route: 4 mg Instruction: 1 x 4 mg tablet Condition: Monday Dose/Route: 5 mg Instruction: 1 x 5 mg tablet Condition: Monday Dose/Route: 4 mg Instruction: 1 x 4 mg tablet Condition: Monday Dose/Route: 5 mg Instruction: 1 x 5 mg tablet Condition: Dose/Route: 4 mg Instruction: 1 x 4 mg tablet Condition: Monday Dose/Route: 5 mg Instruction: 1 x 5 mg tablet Condition: Monday Dose/Route: 4 mg Instruction: 1 x 4 mg tablet Protocol Text: Adjustment Start Date: 09/28/23 INR Value: 50.40 SECONDS INR Date: 09/28/23 Recheck Date: 10/05/23 warfarin 5 mg tablet 5 mg PO DAILY Qty: 30 2RF Protocol: Dose Management Condition: Monday Dose/Route: 4 mg Instruction: 1 x 4 mg tablet Condition: Monday Dose/Route: 5 mg Instruction: 1 x 5 mg tablet Condition: Monday Dose/Route: 4 mg Instruction: 1 x 4 mg tablet Condition: Monday Dose/Route: 5 mg Instruction: 1 x 5 mg tablet Condition: Dose/Route: 4 mg Instruction: 1 x 4 mg tablet Condition: Monday Dose/Route: 5 mg Instruction: 1 x 5 mg tablet Condition: Monday Dose/Route: 4 mg Instruction: 1 x 4 mg tablet Protocol Text: Adjustment Start Date: 09/28/23 INR Value: 50.40 SECONDS INR Date: 09/28/23 Recheck Date: 10/05/23 Rx Instructions: Take one daily as directed by provider according to monitoring warfarin 4 mg tablet 4 mg PO DAILY Qty: 30 0RF Protocol: Dose Management Condition: Monday Dose/Route: 4 mg Instruction: 1 x 4 mg tablet Condition: Monday Dose/Route: 5 mg Instruction: 1 x 5 mg tablet Condition: Monday Dose/Route: 4 mg Instruction: 1 x 4 mg tablet Condition: Monday Dose/Route: 5 mg Instruction: 1 x 5 mg tablet Condition: Dose/Route: 4 mg Instruction: 1 x 4 mg tablet Condition: Monday Dose/Route: 5 mg Instruction: 1 x 5 mg tablet Condition: Monday Dose/Route: 4 mg Instruction: 1 x 4 mg tablet Protocol Text: Adjustment Start Date: 09/28/23 INR Value: 50.40 SECONDS INR Date: 09/28/23 Recheck Date: 10/05/23 lorazepam 2 mg tablet 2 mg sublingual PRN PRN (Reason: Seizure Activity) lamotrigine 200 mg tablet extended release 24hr 200 mg PO BID warfarin 5 mg tablet 10 mg PO DAILY Qty: 14 0RF Protocol: Dose Management Condition: Monday Dose/Route: 4 mg Instruction: 1 x 4 mg tablet Condition: Monday Dose/Route: 5 mg Instruction: 1 x 5 mg tablet Condition: Monday Dose/Route: 4 mg Instruction: 1 x 4 mg tablet Condition: Monday Dose/Route: 5 mg Instruction: 1 x 5 mg tablet Condition: Dose/Route: 4 mg Instruction: 1 x 4 mg tablet Condition: Monday Dose/Route: 5 mg Instruction: 1 x 5 mg tablet Condition: Monday Dose/Route: 4 mg Instruction: 1 x 4 mg tablet Protocol Text: Adjustment Start Date: 09/28/23 INR Value: 50.40 SECONDS INR Date: 09/28/23 Recheck Date: 10/05/23 Discharge Orders: Discharge ED (Routine); Ordered 10/12/23 Ordered By: Lj Grant Referrals: Virginia Meyer MD [Primary Care Provider] - 1 week Patient Instructions: Headache, Hypokalemia (ED) Activity Restrictions/Additional Instructions: Please take your potassium as prescribed that you already have at home. Otherwise please follow-up with your family practice physician within the next 7 to 10 days for further evaluation and treatment as needed. Thank you for choosing [facility] for your healthcare needs today. Please realize that you were seen in the emergency department and that we are providing you with an emergency medical screening exam and this may not be a complete and all exclusive of all testing and/or medical workup we may need to determine your element or severity of your illness. It is very important that you follow-up as instructed with your primary care provider or specialist for the additional evaluation and to discuss your medical treatment plan. You may return to the emergency department should you have concerns or if your condition changes or worsens in any way. Coding Level of Care Code ED Attic Fans Mechanic for Victoria Arcos
[2023-10-12 19:25] LABS: Alanine Aminotransferase 7 U/L (0-33); Albumin Level 3.9 g/dL (3.5-5.2); Alkaline Phosphatase 94 U/L (35-105); Anion Gap 11.8 (5-19); Aspartate Amino Transferase 12 U/L (0-32); Blood Urea Nitrogen 6 mg/dL (6-20); Carbon Dioxide 29 mmol/L (22-29); Chloride 102 mmol/L (98-107); Globulin 2.8 g/dL (1.3-4.6); Glomerular Filtration Rate 91.8 mL/min (90-130); Glucose 89 mg/dL (65-115); Osmolality Calculated 287 mOsm/kg (285-295); Sodium 140 mmol/L (136-145); Total Bilirubin 0.4 mg/dL (0.15-1.2); Total Protein 6.7 g/dL (6.6-8.7)
--- NOTE | 2023-10-12 19:28 | CTR_ITS ---
PROCEDURE INFORMATION: Exam: CT Head Without Contrast Exam date and time: 10/12/2023 7:53 PM Age: 42 years old Clinical indication: Other: Headache, HTN, HX of CVA TECHNIQUE: Imaging protocol: Computed tomography of the head without contrast. Axial, coronal and sagittal reformatted images were created and reviewed. Radiation optimization: All CT scans at this facility use at least one of these dose optimization techniques: automated exposure control; mA and/or kV adjustment per patient size (includes targeted exams where dose is matched to clinical indication); or iterative reconstruction. COMPARISON: MR head wo/w con [id number] 06/27/2023 10:34 AM RADIATION DOSE METRICS: Total DLP (mGy-cm): 2136.38 FINDINGS: Brain: Unchanged right occipital encephalomalacia. No CT evidence of acute intracranial hemorrhage or acute territorial infarction. No significant mass effect or midline shift. Basal cisterns patent. Cerebral ventricles: Prominence of the cortical sulci, cisterns and ventricular system, consistent with cerebral and cerebellar volume loss. Paranasal sinuses: Unremarkable. No fluid levels. Mastoid air cells: Grossly unremarkable. Bones/joints: No acute osseous abnormality. Soft tissues: Grossly unremarkable. CT/CT head wo con* [id number] IMPRESSION: 1. No CT evidence of acute intracranial pathology. 2. Additional findings, as above.
[2023-10-12 19:32] LABS: Potassium 2.8 mmol/L (3.5-5.1)
[2023-10-12] MEDS: potassium chloride oral liq 20 mEq/15 mL UDC 40 MEQ PO (19:47)
[2023-10-12] MEDS: diphenhydrAMINE 50 mg/mL SDV 1mL IVP (21:00)
[2023-10-12] MEDS: metoclopramide 5 mg/mL SDV 2 mL 10 MG IVP (21:00)
[2023-10-12] MEDS: ketorolac 30 mg/mL INJ IVP (21:00)
[2023-10-12 21:01] LABS: Add Urine Microscopic? NO; Charge for UA Resulting for Rev
[2023-10-12 21:11] LABS: Urine Appearance Clear (CLEAR); Urine Color Yellow (Yellow); pH Urine 6.5 (5-7)
[2023-10-12 21:12] LABS: Bilirubin Urine Neg (Negative); Blood Urine Neg (Negative); Glucose Urine UA Norm (Normal); Ketones Urine Negative (Negative); Leukocyte Esterase Urine Negative (Negative); Nitrate Urine Negative (Negative); Protein Urine Neg (Negative); Specific Gravity, Urine 1.005 (1.005-1.030); Urobilinogen Urine Neg (Negative)
== END 2023-10-12 22:25 | disposition home or self-care (01) ==
PROVIDERS: Emergency Provider Emergency Medicine; PCP Family Medicine
DX: R51.9 Headache, unspecified (principal); R11.0 Nausea; E87.6 Hypokalemia; Z79.82 Long term (current) use of aspirin; Z79.01 Long term (current) use of anticoagulants; F17.210 Nicotine dependence, cigarettes, uncomplicated; I10 Essential (primary) hypertension; Z86.73 Personal history of transient ischemic attack (TIA), and cerebral infarction without residual deficits
CPT/HCPCS: 70450; 80053; 81003; 85025; 85610; 86140; 96374; 96375; 99285; J1200; J1885; J2765

== ENCOUNTER → 2023-10-18 12:19 | Outpatient (BNVA) | payer BC, MEDICAID, SELFPAY | PROVIDERS: PCP Family Medicine; Referring Provider Family Medicine; Visit Provider Family Medicine | DX: I63.9 Cerebral infarction, unspecified (principal); G40.209 Localization-related (focal) (partial) symptomatic epilepsy and epileptic syndromes with complex partial seizures, not intractable, without status epilepticus; I63.531 Cerebral infarction due to unspecified occlusion or stenosis of right posterior cerebral artery; D68.61 Antiphospholipid syndrome; Z51.81 Encounter for therapeutic drug level monitoring; Z79.01 Long term (current) use of anticoagulants | CPT/HCPCS: 85610 ==

== ENCOUNTER → 2023-10-30 13:08 | Outpatient (BNVA) | payer BC, MEDICAID, SELFPAY | PROVIDERS: PCP Family Medicine; Referring Provider Family Medicine; Visit Provider Family Medicine | DX: Z79.01 Long term (current) use of anticoagulants (principal) | CPT/HCPCS: 85610 ==

== ENCOUNTER → 2023-11-06 12:04 | Outpatient (BNVA) | payer BC, MEDICAID, SELFPAY | PROVIDERS: PCP Family Medicine; Visit Provider Family Medicine | DX: E87.6 Hypokalemia (principal) | CPT/HCPCS: 84132; 85610 ==

== ENCOUNTER → 2023-11-14 15:24 | Outpatient (BNVA) | payer BC, MEDICAID, SELFPAY | PROVIDERS: PCP Family Medicine; Referring Provider Family Medicine; Visit Provider Family Medicine | DX: Z51.81 Encounter for therapeutic drug level monitoring (principal); Z79.01 Long term (current) use of anticoagulants; E87.6 Hypokalemia | CPT/HCPCS: 84132; 85610 ==

== ENCOUNTER → 2023-11-20 16:04 | Outpatient (BNVA) | payer BC, MEDICAID, SELFPAY | PROVIDERS: PCP Family Medicine; Visit Provider Family Medicine | DX: Z51.81 Encounter for therapeutic drug level monitoring (principal); Z79.01 Long term (current) use of anticoagulants | CPT/HCPCS: 85610 ==

== ENCOUNTER → 2023-12-02 14:40 | Outpatient (BNVA) | payer BC, MEDICAID, SELFPAY | PROVIDERS: PCP Family Medicine; Visit Provider Family Medicine | DX: Z51.81 Encounter for therapeutic drug level monitoring (principal); Z79.01 Long term (current) use of anticoagulants; I63.9 Cerebral infarction, unspecified | CPT/HCPCS: 85610 ==

== ENCOUNTER → 2023-12-11 11:49 | Outpatient (BNVA) | payer BC, MEDICAID, SELFPAY | PROVIDERS: PCP Family Medicine; Referring Provider Family Medicine; Visit Provider Family Medicine | DX: Z51.81 Encounter for therapeutic drug level monitoring (principal); Z79.01 Long term (current) use of anticoagulants | CPT/HCPCS: 85610 ==

== ENCOUNTER → 2023-12-20 10:56 | Outpatient (BNVA) | payer BC, MEDICAID, SELFPAY | PROVIDERS: PCP Family Medicine; Referring Provider Family Medicine; Visit Provider Family Medicine | DX: Z51.81 Encounter for therapeutic drug level monitoring (principal); Z79.01 Long term (current) use of anticoagulants | CPT/HCPCS: 85610 ==

== ENCOUNTER → 2024-01-03 12:44 | Outpatient (BNVA) | payer BC, MEDICAID, SELFPAY | PROVIDERS: PCP Family Medicine; Referring Provider Family Medicine; Visit Provider Family Medicine | DX: Z51.81 Encounter for therapeutic drug level monitoring (principal); Z79.01 Long term (current) use of anticoagulants | CPT/HCPCS: 85610 ==

== ENCOUNTER → 2024-01-08 16:52 | Outpatient (BNVA) | payer BC, MEDICAID, SELFPAY | PROVIDERS: PCP Family Medicine; Visit Provider Nurse Practitioner Family | DX: R30.0 Dysuria; N39.0 Urinary tract infection, site not specified | CPT/HCPCS: 81000; 87086 ==

== ENCOUNTER → 2024-01-10 12:54 | Outpatient (BNVA) | payer BC, MEDICAID, SELFPAY | PROVIDERS: PCP Family Medicine; Visit Provider Emergency Medicine | DX: Z51.81 Encounter for therapeutic drug level monitoring; Z79.01 Long term (current) use of anticoagulants | CPT/HCPCS: 85610 ==

== ENCOUNTER → 2024-01-12 10:01 | Outpatient (BNVA) | payer MEDICARE, BC, MEDICAID, SELFPAY | PROVIDERS: PCP Family Medicine; Visit Provider Family Medicine | DX: Z51.81 Encounter for therapeutic drug level monitoring (principal); Z79.01 Long term (current) use of anticoagulants | CPT/HCPCS: 85610 ==

== ENCOUNTER → 2024-01-15 16:49 | Outpatient (BNVA) | payer MEDICARE, BC, MEDICAID, SELFPAY | PROVIDERS: PCP Family Medicine; Referring Provider Family Medicine; Visit Provider Family Medicine | DX: I63.531 Cerebral infarction due to unspecified occlusion or stenosis of right posterior cerebral artery (principal); Z51.81 Encounter for therapeutic drug level monitoring; Z79.01 Long term (current) use of anticoagulants | CPT/HCPCS: 85610 ==

== ENCOUNTER → 2024-01-19 10:04 | Outpatient (BNVA) | payer MEDICARE, BC, MEDICAID, SELFPAY | PROVIDERS: PCP Family Medicine; Referring Provider Family Medicine; Visit Provider Family Medicine | DX: I63.531 Cerebral infarction due to unspecified occlusion or stenosis of right posterior cerebral artery (principal) | CPT/HCPCS: 85610 ==

== ENCOUNTER → 2024-01-26 12:09 | Outpatient (BNVA) | payer MEDICARE, BC, MEDICAID, SELFPAY | PROVIDERS: PCP Family Medicine; Referring Provider Family Medicine; Visit Provider Family Medicine | DX: I63.531 Cerebral infarction due to unspecified occlusion or stenosis of right posterior cerebral artery (principal); Z51.81 Encounter for therapeutic drug level monitoring; Z79.01 Long term (current) use of anticoagulants | CPT/HCPCS: 85610 ==

== ENCOUNTER → 2024-02-05 10:17 | Outpatient (BNVA) | payer MEDICARE, BC, MEDICAID, SELFPAY | PROVIDERS: PCP Family Medicine; Referring Provider Family Medicine; Visit Provider Family Medicine | DX: I63.531 Cerebral infarction due to unspecified occlusion or stenosis of right posterior cerebral artery (principal); Z51.81 Encounter for therapeutic drug level monitoring; Z79.01 Long term (current) use of anticoagulants | CPT/HCPCS: 85610 ==

== ENCOUNTER → 2024-02-08 10:15 | Outpatient (BNVA) | payer MEDICARE, BC, MEDICAID, SELFPAY | PROVIDERS: PCP Family Medicine; Visit Provider Family Medicine | DX: I63.531 Cerebral infarction due to unspecified occlusion or stenosis of right posterior cerebral artery (principal); Z51.81 Encounter for therapeutic drug level monitoring; Z79.01 Long term (current) use of anticoagulants | CPT/HCPCS: 85610 ==

== ENCOUNTER → 2024-02-12 11:36 | Outpatient (BNVA) | payer MEDICARE, BC, MEDICAID, SELFPAY | PROVIDERS: PCP Family Medicine; Visit Provider Family Medicine | DX: I63.531 Cerebral infarction due to unspecified occlusion or stenosis of right posterior cerebral artery (principal) | CPT/HCPCS: 85610 ==

== ENCOUNTER 2024-02-15 20:24 | Emergency (ER) | payer MEDICARE, MEDICAID, SELFPAY ==
[2024-02-15 20:25] VITALS: BP 131/85; PULSE 81; RESP 14; TEMP 36.7; O2SAT 98
[2024-02-15] MEDS: HYDROcodone-acetaminophen 5-325 mg Tablet 1 TAB PO (20:55)
[2024-02-15] MEDS: ketorolac 60 mg/2 mL INJ IM (20:58)
[2024-02-15] MEDS: dexamethasone 10 mg/mL INJ IM (20:58)
[2024-02-15] MEDS: ondansetron 4 MG Tablet PO (21:05)
[2024-02-15 21:09] VITALS: BP 128/81; PULSE 79; RESP 16; TEMP 36.7; O2SAT 99
[2024-02-15 21:09] LABS: Basophils % 0.6 %; Eosinophils # 0.1 10^3/uL (0.0-0.8); Eosinophils % 1.8 %; Hematocrit 37.6 % (36-47); Lymphocytes # 1.2 10^3/uL (0.8-4.8); Lymphocytes % 18.6 %; Mean Corpuscular HGB Conc 32.7 g/dL (30-55); Mean Corpuscular Hemoglobin 34.3 pg (27-33); Mean Corpuscular Volume 104.7 fl (85-98); Monocytes # 0.5 10^3/uL (0.2-0.9); Monocytes % 7.4 %; Neutrophils % 71.3 %; Nucleated Red Blood Cells % 0 %; Platelet Count 148 10^3/cmm (157-399); Red Blood Count 3.59 10^6/uL (3.85-5.65); Red Cell Distribution Width 14.4 % (12.1-15.1); White Blood Count 6.18 10^3/uL (3.29-11.43)
--- NOTE | 2024-02-15 21:12 | ED_ITS ---
HPI - Back Pain/Injury 2 General: Chief Complaint: Back Pain/Injury Stated Complaint: Lower Back Pain Time Seen by Provider: 02/15/24 20:35 History of Present Illness: 43-year-old woman with a history of stro ke who is now on warfarin who presents the emergency room with low back pain. She has pain in her L1 on L2 region. Some mild radiation into her left buttock. She is seen her PCP but currently does not take anything for the pain. Its become worse today. No saddle numbness, no urinary retention or incontinence, no focal motor deficit, no sensory deficit. no recent fever. no cough. no shortness of breath. no chest pain. no abdominal pain. no nausea or vomiting. no dysuria. no altered mental status. no edema. She has had no injury. She did become much more active recently with some changes in her medications and think she may have just overdone it doing housework. Review of Systems 2 Narrative: Constitutional symptoms: Negative except as documented in HPI. Skin symptoms: Negative except as documented in HPI. Eye symptoms: Negative except as documented in HPI. ENMT symptoms: Negative except as documented in HPI. Respiratory symptoms: Negative except as documented in HPI. Cardiovascular symptoms: Negative except as documented in HPI. Gastrointestinal symptoms: Negative except as documented in HPI. Genitourinary symptoms: Negative except as documented in HPI. Musculoskeletal symptoms: Negative except as documented in HPI. Neurologic symptoms: Negative except as documented in HPI. Psychiatric symptoms: Negative except as documented in HPI. Endocrine symptoms: Negative except as documented in HPI. PFSH ED 2 PFSH: Medical History De Quervain's syndrome (tenosynovitis) Positive ALISSA (antinuclear antibody) High risk medication use Inflammatory arthritis Mood disorder due to a general medical condition Psychiatric care Anticoagulated with warfarin HTN (hypertension) Anticoagulation goal of INR 2 to 3 CVA (cerebral vascular accident) Complex partial epilepsy with generalization Surgical History H/O dilation and curettage x2 - 2004, 2007 H/O section Family History Father Cancer brain cancer - Diabetes Family/Other Thyroid disease x2 Maternal Aunt - unsure Other Lupus Rheumatoid arthritis Denies family history of Ovarian cyst Clotting disorder Hyperlipidemia Chronic kidney disease (CKD) Suicide Bleeding disorder Lung disease Hypertension Stroke Social History Smoking and tobacco/nicotine status: current every day tobacco/nicotine user cigarettes Packs smoked per day: 1 Alcohol intake: never Substance/Drug Use: never Female Reproductive History: Spontaneous abortions: No Physical Exam 2 Narrative: EXAM NARRATIVE: General: Alert, no acute distress. Head: Normocephalic Neck: Trachea midline Eye: Extraocular movements are intact. Ears, nose, mouth and throat: Oral mucosa moist Respiratory: Respirations are non-labored Musculoskeletal: Normal ROM Back: no step off, no focal tenderness, some paraspinal muscle tenderness Neurological: Alert and oriented to person, place, time, and situation, No focal neurological deficit observed. Psychiatric: Cooperative, appropriate mood & affect. Course 2 Vital Signs: Vital signs: Vital Signs Temperature 98.0 F 02/15/24 21:09 Pulse Rate 79 02/15/24 21:09 Respiratory Rate 16 02/15/24 21:09 Blood Pressure 128/81 02/15/24 21:09 Pulse Oximetry 99 02/15/24 21:09 Oxygen Delivery Me thod Room Air 02/15/24 20:25 MDM - Back Pain/Injury Medical Decision Making Assessment and plan: Lumbar back strain -IM Toradol, p.o. Pingree and p.o. Zofran in the emergency room. Also IM Decadron. - Discharged home - Discussed plan with patient. Answered any questions. - Evaluation and treatment of this problem were appropriate in the emergency setting. Labs 02/15/24 21:04 Laboratory Results WBC 6.18 10^3/uL (3.29-11.43) 02/15/24 21:04 RBC 3.59 10^6/uL (3.85-5.65) L 02/15/24 21:04 Hgb 12.30 g/dL (11.27-16.99) 02/15/24 21:04 Hct 37.6 % (36-47) 02/15/24 21:04 MCV 104.7 fl (85-98) H 02/15/24 21:04 MCH 34.3 pg (27-33) H 02/15/24 21:04 MCHC 32.7 g/dL (30-55) 02/15/24 21:04 RDW 14.4 % (12.1-15.1) 02/15/24 21:04 Plt Count 148 10^3/cmm (157-399) L 02/15/24 21:04 MPV 12.0 fL (7.4-10.4) H 02/15/24 21:04 Neut % (Auto) 71.3 % 02/15/24 21:04 Lymph % (Auto) 18.6 % 02/15/24 21:04 [place] % (Auto) 7.4 % 02/15/24 21:04 Eos % (Auto) 1.8 % 02/15/24 21:04 Baso % (Auto) 0.6 % 02/15/24 21:04 Neut # (Auto) 4.40 10^3/uL (1.8-7.7) 02/15/24 21:04 Lymph # (Auto) 1.2 10^3/uL (0.8-4.8) 02/15/24 21:04 [place] # (Auto) 0.5 10^3/uL (0.2-0.9) 02/15/24 21:04 Eos # (Auto) 0.1 10^3/uL (0.0-0.8) 02/15/24 21:04 Baso # (Auto) 0.0 10^3/uL (0.0-0.1) 02/15/24 21:04 Nucleated RBC % (auto) 0 % 02/15/24 21:04 Nucleated RBCs # 0.0 /100WBC 02/15/24 21:04 No radiology studies performed this visit Discharge Plan Discharge Patient Disposition: Home Clinical Impression: Lumbar radiculopathy, Strain of lumbar region Condition: Stable Prescriptions: New hydrocodone-acetaminophen 5-325 mg tablet 1 tab PO Q6H PRN (Reason: pain) Qty: 20 0RF dexamethasone 6 mg tablet 6 mg PO DAILY 5 Days Qty: 5 0RF diclofenac sodium 50 mg tablet,delayed release (DR/EC) 50 mg PO BID PRN (Reason: pain) Qty: 14 0RF cyclobenzaprine 5 mg tablet 5 mg PO BEDTIME PRN (Reason: muscle spasm) Qty: 10 0RF ondansetron 8 mg tablet,disintegrating 8 mg PO Q6H Qty: 14 0RF Rx Instructions: Take 1/2-1 tab every 6 hours as needed for nausea and vomiting No Action Kyleena 17.5 mcg/24 hrs (5 yrs) 19.5 mg intrauterine device See Rx Instructions .ROUTE .COMPLEX Rx Instructions: intrauterinely DIRECTED varenicline [Chantix Continuing Month Box] 1 mg tablet 1 mg PO BID Qty: 56 5RF Rx Instructions: Take 1 at the start of your day with food. Never before bed. 1 a day is probably enough. polyethylene glycol 3350 [Miralax] 17 gram/dose powder 17 g PO DAILY Qty: 510 0RF duloxetine 30 mg capsule,delayed release(DR/EC) 30 mg PO QAM 30 Days Qty: 30 1RF buspirone 5 mg tablet 5 mg PO BID PRN (Reason: anxiety) Qty: 60 1RF trazodone 50 mg tablet 50 mg PO DAILY PRN (Reason: sleep) Qty: 30 3RF Rx Instructions: take a-half or whole tab po prn hs sleep aspirin 81 mg tablet,delayed release (DR/EC) 81 mg PO DAILY 90 Days Qty: 90 3RF atorvastatin 40 mg tablet See Rx Instructions .ROUTE .COMPLEX Qty: 90 3RF Dose Instruction: TAKE 1 TABLET BY MOUTH ONCE DAILY EVERY EVENING Rx Instructions: TAKE 1 TABLET BY MOUTH ONCE DAILY EVERY EVENING losartan 25 mg tablet 25 mg PO DAILY 90 Days Qty: 90 1RF Hold Instructions: Home Medication placed on hold at Doctor's office potassium chloride 8 mEq tablet extended release 16 meq PO TID 30 Days Qty: 180 5RF warfarin 3 mg tablet 3 mg PO DAILY Qty: 30 0RF warfarin 6 mg tablet 6 mg PO DAILY Qty: 30 0RF Protocol: Dose Management Condition: Monday Dose/Route: 4 mg Instruction: 1 x 4 mg tablet Condition: Monday Dose/Route: 4 mg Instruction: 1 x 4 mg tablet Condition: Monday Dose/Route: 4 mg Instruction: 1 x 4 mg tablet Condition: Monday Dose/Route: 0 mg Instruction: 0 tablets Condition: Dose/Route: 0 mg Instruction: 0 tablets Condition: Monday Dose/Route: 0 mg Instruction: 0 tablets Condition: Monday Dose/Route: 0 mg Instruction: 0 tablets Protocol Text: Adjustment Start Date: Monday01/10/24 INR Value: 54.60 SECONDS INR Date: 01/10/24 Recheck Date: 01/12/24 warfarin 5 mg tablet 5 mg PO DAILY Qty: 30 2RF Protocol: Dose Management Condition: Monday Dose/Route: 4 mg Instruction: 1 x 4 mg tablet Condition: Monday Dose/Route: 4 mg Instruction: 1 x 4 mg tablet Condition: Monday Dose/Route: 4 mg Instruction: 1 x 4 mg tablet Condition: Monday Dose/Route: 0 mg Instruction: 0 tablets Condition: Dose/Route: 0 mg Instruction: 0 tablets Condition: Monday Dose/Route: 0 mg Instruction: 0 tablets Condition: Monday Dose/Route: 0 mg Instruction: 0 tablets Protocol Text: Adjustment Start Date: Monday01/10/24 INR Value: 54.60 SECONDS INR Date: 01/10/24 Recheck Date: 01/12/24 Rx Instructions: Take one daily as directed by provider according to monitoring lorazepam [Lorazepam Intensol] 2 mg/mL concentrate 2 mg PO ONCE PRN (Reason: seizures) Qty: 30 2RF lamotrigine 200 mg tablet extended release 24hr 400 mg PO DAILY Qty: 60 11RF warfarin 4 mg tablet 4 mg PO DAILY Qty: 30 0RF Protocol: Dose Management Condition: Monday Dose/Route: 4 mg Instruction: 1 x 4 mg tablet Condition: Monday Dose/Route: 4 mg Instruction: 1 x 4 mg tablet Condition: Monday Dose/Route: 4 mg Instruction: 1 x 4 mg tablet Condition: Monday Dose/Route: 0 mg Instruction: 0 tablets Condition: Dose/Route: 0 mg Instruction: 0 tablets Condition: Monday Dose/Route: 0 mg Instruction: 0 tablets Condition: Monday Dose/Route: 0 mg Instruction: 0 tablets Protocol Text: Adjustment Start Date: Monday01/10/24 INR Value: 54.60 SECONDS INR Date: 01/10/24 Recheck Date: 01/12/24 leflunomide 20 mg tablet 20 mg PO DAILY Qty: 30 3RF Hold Instructions: Pt stopped on her own lorazepam 2 mg tablet 2 mg sublingual PRN PRN (Reason: Seizure Activity) warfarin 5 mg tablet 10 mg PO DAILY Qty: 14 0RF Protocol: Dose Management Condition: Monday Dose/Route: 4 mg Instruction: 1 x 4 mg tablet Condition: Monday Dose/Route: 4 mg Instruction: 1 x 4 mg tablet Condition: Monday Dose/Route: 4 mg Instruction: 1 x 4 mg tablet Condition: Monday Dose/Route: 0 mg Instruction: 0 tablets Condition: Dose/Route: 0 mg Instruction: 0 tablets Condition: Monday Dose/Route: 0 mg Instruction: 0 tablets Condition: Monday Dose/Route: 0 mg Instruction: 0 tablets Protocol Text: Adjustment Start Date: Monday01/10/24 INR Value: 54.60 SECONDS INR Date: 01/10/24 Recheck Date: 01/12/24 Discharge Orders: Discharge ED (Routine); Ordered 02/15/24 Ordered By: Payton Melgoza Referrals: Virginia Meyer MD [Primary Care Provider] - Discharge Diet: Usual diet Discharge Activity: Increase activity as tolerated Patient Instructions: Opioid Safety Activity Restrictions/Additional Instructions: Thank you for choosing [facility] for your healthcare needs today. Please realize this is an emergency room and that we are providing you with a medical screening exam and this may not be complete and all inclusive of all the testing and or work up that you may need to determine your ailment or severity of your illness. You have been screened and evaluated and felt safe for discharge. Health conditions do change or evolve sometimes and as such it is important that you follow up with your Primary Doctor to be re checked, 3-5 days is a general good time frame for follow up. You are always welcome to return to the ED for re assessment if your symptoms are worsening or you have new concerns Coding Level of Care Code ED Crew Leader/Control Room Operator for Victoria Arcos
[2024-02-15 21:20] LABS: INR 2.28 (0.8-1.2)
== END 2024-02-15 21:08 | disposition home or self-care (01) ==
PROVIDERS: Emergency Provider Emergency Medicine; PCP Family Medicine
DX: M54.16 Radiculopathy, lumbar region (principal); S39.012A Strain of muscle, fascia and tendon of lower back, initial encounter; Z79.82 Long term (current) use of aspirin; Z79.01 Long term (current) use of anticoagulants; F17.210 Nicotine dependence, cigarettes, uncomplicated; I10 Essential (primary) hypertension; Z86.73 Personal history of transient ischemic attack (TIA), and cerebral infarction without residual deficits; X50.9XXA Other and unspecified overexertion or strenuous movements or postures, initial encounter
CPT/HCPCS: 36415; 85025; 85610; 96372; 99284; J1100; J1885; Q0162

== ENCOUNTER → 2024-02-19 11:28 | Outpatient (BNVA) | payer MEDICARE, MEDICAID, SELFPAY | PROVIDERS: PCP Family Medicine; Referring Provider Family Medicine; Visit Provider Family Medicine | DX: I63.531 Cerebral infarction due to unspecified occlusion or stenosis of right posterior cerebral artery (principal); I10 Essential (primary) hypertension; E87.6 Hypokalemia; M19.90 Unspecified osteoarthritis, unspecified site; Z51.81 Encounter for therapeutic drug level monitoring; Z79.01 Long term (current) use of anticoagulants | CPT/HCPCS: 85025; 85610 ==

== ENCOUNTER → 2024-02-21 14:34 | Outpatient (BNVA) | payer MEDICARE, MEDICAID, SELFPAY | PROVIDERS: PCP Family Medicine; Visit Provider Family Medicine | DX: I63.531 Cerebral infarction due to unspecified occlusion or stenosis of right posterior cerebral artery (principal); Z51.81 Encounter for therapeutic drug level monitoring; Z79.01 Long term (current) use of anticoagulants; I10 Essential (primary) hypertension; E87.6 Hypokalemia; M19.90 Unspecified osteoarthritis, unspecified site | CPT/HCPCS: 80053; 80061; 83735; 85025; 85610 ==

== ENCOUNTER → 2024-02-27 10:06 | Outpatient (BNVA) | payer MEDICARE, MEDICAID, SELFPAY | PROVIDERS: PCP Family Medicine; Referring Provider Family Medicine; Visit Provider Family Medicine | DX: I63.531 Cerebral infarction due to unspecified occlusion or stenosis of right posterior cerebral artery | CPT/HCPCS: 85610 ==

== ENCOUNTER → 2024-02-29 11:30 | Outpatient (BNVA) | payer MEDICARE, MEDICAID, SELFPAY | PROVIDERS: PCP Family Medicine; Visit Provider Family Medicine | DX: I63.531 Cerebral infarction due to unspecified occlusion or stenosis of right posterior cerebral artery (principal) | CPT/HCPCS: 85610 ==

== ENCOUNTER → 2024-03-07 10:00 | Outpatient (BNVA) | payer MEDICARE, MEDICAID, SELFPAY | PROVIDERS: PCP Family Medicine; Referring Provider Family Medicine; Visit Provider Family Medicine | DX: I63.531 Cerebral infarction due to unspecified occlusion or stenosis of right posterior cerebral artery (principal); Z51.81 Encounter for therapeutic drug level monitoring; Z79.01 Long term (current) use of anticoagulants | CPT/HCPCS: 85610 ==

== ENCOUNTER → 2024-03-11 12:49 | Outpatient (BNVA) | payer MEDICARE, MEDICAID, SELFPAY | PROVIDERS: PCP Family Medicine; Referring Provider Family Medicine; Visit Provider Family Medicine | DX: I63.531 Cerebral infarction due to unspecified occlusion or stenosis of right posterior cerebral artery (principal); Z51.81 Encounter for therapeutic drug level monitoring; Z79.01 Long term (current) use of anticoagulants | CPT/HCPCS: 36416; 85610 ==

== ENCOUNTER → 2024-03-14 09:55 | Outpatient (BNVA) | payer MEDICARE, MEDICAID, SELFPAY | PROVIDERS: PCP Family Medicine; Referring Provider Family Medicine; Visit Provider Family Medicine | DX: I63.531 Cerebral infarction due to unspecified occlusion or stenosis of right posterior cerebral artery (principal); Z51.81 Encounter for therapeutic drug level monitoring; Z79.01 Long term (current) use of anticoagulants | CPT/HCPCS: 85610 ==

== ENCOUNTER 2024-03-20 06:00 | Outpatient (CLI) | payer MEDICARE, MEDICAID, SELFPAY | END 2024-03-20 06:01 | disposition home or self-care (01) | LOC: RAD 04-11 14:23 | PROVIDERS: PCP Family Medicine; Visit Provider Family Medicine | DX: I63.531 Cerebral infarction due to unspecified occlusion or stenosis of right posterior cerebral artery (principal) | CPT/HCPCS: 85610 ==

== ENCOUNTER → 2024-03-27 13:58 | Outpatient (BNVA) | payer MEDICARE, MEDICAID, SELFPAY | PROVIDERS: PCP Family Medicine; Referring Provider Family Medicine; Visit Provider Family Medicine | DX: Z79.01 Long term (current) use of anticoagulants (principal); Z51.81 Encounter for therapeutic drug level monitoring | CPT/HCPCS: 85610 ==

== ENCOUNTER → 2024-04-03 09:11 | Outpatient (BNVA) | payer MEDICARE, MEDICAID, SELFPAY | PROVIDERS: PCP Family Medicine; Referring Provider Family Medicine; Visit Provider Family Medicine | DX: I63.531 Cerebral infarction due to unspecified occlusion or stenosis of right posterior cerebral artery (principal); Z51.81 Encounter for therapeutic drug level monitoring; Z79.01 Long term (current) use of anticoagulants | CPT/HCPCS: 85610 ==

== ENCOUNTER → 2024-04-10 10:05 | Outpatient (BNVA) | payer MEDICARE, MEDICAID, SELFPAY | PROVIDERS: PCP Family Medicine; Referring Provider Family Medicine; Visit Provider Family Medicine | DX: Z51.81 Encounter for therapeutic drug level monitoring; Z79.01 Long term (current) use of anticoagulants | CPT/HCPCS: 85610 ==

== ENCOUNTER → 2024-04-11 15:02 | Outpatient (BNVA) | payer MEDICARE, MEDICAID, SELFPAY | PROVIDERS: PCP Family Medicine; Visit Provider Physician Assistant | DX: M65.4 Radial styloid tenosynovitis [de Quervain] (principal) | CPT/HCPCS: 20600; 99213; J3301; J3490 ==

== ENCOUNTER 2024-04-12 15:44 | Outpatient (CLI) | payer MEDICARE, MEDICAID, SELFPAY ==
--- NOTE | 2024-04-12 16:15 | USR_ITS ---
PROCEDURE INFORMATION: Exam: US Pelvis, Complete, Non-Obstetric Exam date and time: 04/12/2024 4:08 PM Age: 43 years old Clinical indication: Menstruation abnormalities; Irregular menstruation; Additional info: N93.9 - abnormal uterine and vaginal bleeding, unspecified TECHNIQUE: Imaging protocol: Transabdominal pelvic nonobstetric ultrasound. Complete exam. Real time ultrasound with image documentation. COMPARISON: CT abdomen pelvis w con* [id number] 05/04/2023 5:04 PM FINDINGS: Uterus: Uterus is normal. Endometrial stripe is normal. Intrauterine contraceptive device within the endometrial canal noted. Right ovary/adnexa: Ovary is normal. No mass. Normal blood flow. Physiological prominent follicles noted. Left ovary/adnexa: Ovary is normal. No mass. Normal blood flow. Intraperitoneal space: No intraperitoneal fluid. Urinary bladder: Normal. US/US pelvic complete* [id number] IMPRESSION: No acute findings.
== END 2024-04-12 15:45 | disposition home or self-care (01) ==
LOC: RAD 15:45
PROVIDERS: PCP Family Medicine; Visit Provider Family Medicine
DX: N93.9 Abnormal uterine and vaginal bleeding, unspecified (principal); Z51.81 Encounter for therapeutic drug level monitoring; Z79.01 Long term (current) use of anticoagulants; Z97.5 Presence of (intrauterine) contraceptive device
CPT/HCPCS: 76856; 85610

== ENCOUNTER → 2024-04-15 10:23 | Outpatient (BNVA) | payer MEDICARE, MEDICAID, SELFPAY | PROVIDERS: PCP Family Medicine; Referring Provider Family Medicine; Visit Provider Family Medicine | DX: I63.531 Cerebral infarction due to unspecified occlusion or stenosis of right posterior cerebral artery (principal) | CPT/HCPCS: 85610 ==

== ENCOUNTER → 2024-04-18 09:47 | Outpatient (BNVA) | payer MEDICARE, MEDICAID, SELFPAY | PROVIDERS: PCP Family Medicine; Referring Provider Family Medicine; Visit Provider Family Medicine | DX: I63.531 Cerebral infarction due to unspecified occlusion or stenosis of right posterior cerebral artery | CPT/HCPCS: 85610 ==

== ENCOUNTER → 2024-04-25 14:33 | Outpatient (BNVA) | payer MEDICARE, MEDICAID, SELFPAY | PROVIDERS: PCP Family Medicine; Visit Provider Family Medicine | DX: I63.531 Cerebral infarction due to unspecified occlusion or stenosis of right posterior cerebral artery (principal) | CPT/HCPCS: 85610 ==

== ENCOUNTER → 2024-04-29 09:20 | Outpatient (BNVA) | payer MEDICARE, MEDICAID, SELFPAY | PROVIDERS: PCP Family Medicine; Referring Provider Family Medicine; Visit Provider Family Medicine | DX: I63.531 Cerebral infarction due to unspecified occlusion or stenosis of right posterior cerebral artery (principal) | CPT/HCPCS: 85610 ==

== ENCOUNTER → 2024-05-02 09:24 | Outpatient (BNVA) | payer MEDICARE, MEDICAID, SELFPAY | PROVIDERS: PCP Family Medicine; Referring Provider Family Medicine; Visit Provider Family Medicine | DX: I63.531 Cerebral infarction due to unspecified occlusion or stenosis of right posterior cerebral artery (principal); Z51.81 Encounter for therapeutic drug level monitoring; Z79.01 Long term (current) use of anticoagulants | CPT/HCPCS: 85610 ==

== ENCOUNTER → 2024-05-06 12:40 | Outpatient (BNVA) | payer MEDICARE, MEDICAID, SELFPAY | PROVIDERS: PCP Family Medicine; Visit Provider Nurse Practitioner Women's Health | DX: Z01.419 Encounter for gynecological examination (general) (routine) without abnormal findings (principal) | CPT/HCPCS: 87624 ==

== ENCOUNTER → 2024-05-08 12:35 | Outpatient (BNVA) | payer MEDICARE, MEDICAID, SELFPAY | PROVIDERS: PCP Family Medicine; Visit Provider Specialist | DX: D75.89 Other specified diseases of blood and blood-forming organs (principal); D68.61 Antiphospholipid syndrome; Z51.81 Encounter for therapeutic drug level monitoring; Z79.01 Long term (current) use of anticoagulants; I63.531 Cerebral infarction due to unspecified occlusion or stenosis of right posterior cerebral artery; E87.6 Hypokalemia; G30.9 Alzheimer's disease, unspecified; F02.80 Dementia in other diseases classified elsewhere, unspecified severity, without behavioral disturbance, psychotic disturbance, mood disturbance, and anxiety; G40.109 Localization-related (focal) (partial) symptomatic epilepsy and epileptic syndromes with simple partial seizures, not intractable, without status epilepticus; I69.398 Other sequelae of cerebral infarction; H53.9 Unspecified visual disturbance; F17.200 Nicotine dependence, unspecified, uncomplicated; Z71.6 Tobacco abuse counseling | CPT/HCPCS: 80048; 80175; 82607; 82746; 85610; 99214 ==

== ENCOUNTER → 2024-05-10 10:56 | Outpatient (BNVA) | payer MEDICARE, MEDICAID, SELFPAY | PROVIDERS: PCP Family Medicine | DX: I63.531 Cerebral infarction due to unspecified occlusion or stenosis of right posterior cerebral artery (principal) | CPT/HCPCS: 85610 ==

== ENCOUNTER → 2024-05-13 10:20 | Outpatient (BNVA) | payer MEDICARE, MEDICAID, SELFPAY | PROVIDERS: PCP Family Medicine; Visit Provider Family Medicine | DX: Z51.81 Encounter for therapeutic drug level monitoring (principal); Z79.01 Long term (current) use of anticoagulants; I63.531 Cerebral infarction due to unspecified occlusion or stenosis of right posterior cerebral artery | CPT/HCPCS: 85610 ==

== ENCOUNTER → 2024-05-16 11:31 | Outpatient (BNVA) | payer MEDICARE, MEDICAID, SELFPAY | PROVIDERS: PCP Family Medicine; Visit Provider Family Medicine | DX: I63.531 Cerebral infarction due to unspecified occlusion or stenosis of right posterior cerebral artery | CPT/HCPCS: 85610 ==

== ENCOUNTER → 2024-05-20 12:00 | Outpatient (BNVA) | payer MEDICARE, MEDICAID, SELFPAY | PROVIDERS: PCP Family Medicine; Visit Provider Nurse Practitioner | DX: I63.531 Cerebral infarction due to unspecified occlusion or stenosis of right posterior cerebral artery | CPT/HCPCS: 85610 ==

== ENCOUNTER → 2024-05-23 11:02 | Outpatient (BNVA) | payer MEDICARE, MEDICAID, SELFPAY | PROVIDERS: PCP Family Medicine; Referring Provider Family Medicine; Visit Provider Family Medicine | DX: I63.531 Cerebral infarction due to unspecified occlusion or stenosis of right posterior cerebral artery (principal); Z51.81 Encounter for therapeutic drug level monitoring; Z79.01 Long term (current) use of anticoagulants | CPT/HCPCS: 85610 ==

== ENCOUNTER → 2024-05-27 11:18 | Outpatient (BNVA) | payer MEDICARE, MEDICAID, SELFPAY | PROVIDERS: PCP Family Medicine; Visit Provider Family Medicine | DX: I63.531 Cerebral infarction due to unspecified occlusion or stenosis of right posterior cerebral artery | CPT/HCPCS: 85610 ==

== ENCOUNTER → 2024-06-03 12:07 | Outpatient (BNVA) | payer MEDICARE, MEDICAID, SELFPAY | PROVIDERS: PCP Family Medicine; Visit Provider Family Medicine | DX: I63.531 Cerebral infarction due to unspecified occlusion or stenosis of right posterior cerebral artery | CPT/HCPCS: 85610 ==

== ENCOUNTER → 2024-06-10 11:10 | Outpatient (BNVA) | payer MEDICARE, MEDICAID, SELFPAY | PROVIDERS: PCP Family Medicine; Visit Provider Family Medicine | DX: I63.531 Cerebral infarction due to unspecified occlusion or stenosis of right posterior cerebral artery | CPT/HCPCS: 85610 ==

== ENCOUNTER → 2024-06-18 09:48 | Outpatient (BNVA) | payer MEDICARE, MEDICAID, SELFPAY | PROVIDERS: PCP Family Medicine; Referring Provider Family Medicine; Visit Provider Family Medicine | DX: I63.531 Cerebral infarction due to unspecified occlusion or stenosis of right posterior cerebral artery (principal); Z51.81 Encounter for therapeutic drug level monitoring; Z79.01 Long term (current) use of anticoagulants | CPT/HCPCS: 85610 ==

== ENCOUNTER 2024-06-20 10:17 | Outpatient (CLI) | payer MEDICARE, MEDICAID, SELFPAY ==
--- NOTE | 2024-06-20 10:30 | MM_ITS ---
WS: [id number] BILATERAL 3D TOMOSYNTHESIS DIGITAL DIAGNOSTIC MAMMOGRAPHY WITH CAD CLINICAL INFORMATION: N60.01 - Solitary cyst of right breast HISTORY: RIGHT breast lump/soreness COMPARISON: 2022 TECHNIQUE: Bilateral CC, MLO, and ML views. FINDINGS: The breasts are composed of heterogeneous fibroglandular density, which can limit the detection of sm all underlying mass lesions. Palpable marker outer quadrant RIGHT breast. Dense underlying parenchyma l tissue. Ultrasound area of concern today is pending. Ovoid density outer RIGHT breast measuring 1.8 cm slightly smaller compared to prior. Ovoid nodules outer LEFT breast previously demonstrated to represent breast cysts appear smaller toda y ULTRASOUND BREAST RIGHT TECHNIQUE: Ultrasound right breast focused area of concern. CLINICAL INFORMATION: N60.01 - Solitary cyst of right breast FINDINGS: Ultrasound RIGHT breast area of concern upper outer quadrant. Multiple simple and complex cysts are v isualized. Complex cyst at the 11 o'clock position is similar in appearance compared to previous yara uring 8 x 8 mm. Additional complex cystic lesion at the 10 o'clock position measuring 1.8 x 2.0 x 1.5 cm with internal debris. Findings are probably benign and recommend 6-month follow-up RIGHT breast d iagnostic mammography and ultrasound to confirm stability especially of the largest lesion at the 10 o'clock position. MM/MM diag BI tomosynthesis [id number] IMPRESSION: DENSITY: The breasts are heterogeneously dense, which may obscure small masses. BI-RADS: 3 - Probably Benign FOLLOW UP: 6 Month Follow-up Recommend 6-month follow-up RIGHT breast diagnostic mammography and ultrasound.
--- NOTE | 2024-06-20 11:05 | US_ITS ---
WS: [id number] BILATERAL 3D TOMOSYNTHESIS DIGITAL DIAGNOSTIC MAMMOGRAPHY WITH CAD CLINICAL INFORMATION: N60.01 - Solitary cyst of right breast HISTORY: RIGHT breast lump/soreness COMPARISON: 2022 TECHNIQUE: Bilateral CC, MLO, and ML views. FINDINGS: The breasts are composed of heterogeneous fibroglandular density, which can limit the detection of sm all underlying mass lesions. Palpable marker outer quadrant RIGHT breast. Dense underlying parenchyma l tissue. Ultrasound area of concern today is pending. Ovoid density outer RIGHT breast measuring 1.8 cm slightly smaller compared to prior. Ovoid nodules outer LEFT breast previously demonstrated to represent breast cysts appear smaller toda y ULTRASOUND BREAST RIGHT TECHNIQUE: Ultrasound right breast focused area of concern. CLINICAL INFORMATION: N60.01 - Solitary cyst of right breast FINDINGS: Ultrasound RIGHT breast area of concern upper outer quadrant. Multiple simple and complex cysts are v isualized. Complex cyst at the 11 o'clock position is similar in appearance compared to previous yara uring 8 x 8 mm. Additional complex cystic lesion at the 10 o'clock position measuring 1.8 x 2.0 x 1.5 cm with internal debris. Findings are probably benign and recommend 6-month follow-up RIGHT breast d iagnostic mammography and ultrasound to confirm stability especially of the largest lesion at the 10 o'clock position. US/US breast RT limited* [id number] IMPRESSION: DENSITY: The breasts are heterogeneously dense, which may obscure small masses. BI-RADS: 3 - Probably Benign FOLLOW UP: 6 Month Follow-up Recommend 6-month follow-up RIGHT breast diagnostic mammography and ultrasound.
== END 2024-06-20 10:18 | disposition home or self-care (01) ==
PROVIDERS: PCP Family Medicine; Visit Provider Nurse Practitioner Women's Health
DX: N60.11 Diffuse cystic mastopathy of right breast (principal); N60.02 Solitary cyst of left breast
CPT/HCPCS: 76642; 77062; G0279

== ENCOUNTER → 2024-06-21 10:44 | Outpatient (BNVA) | payer MEDICARE, MEDICAID, SELFPAY | PROVIDERS: PCP Family Medicine; Visit Provider Family Medicine | DX: I63.531 Cerebral infarction due to unspecified occlusion or stenosis of right posterior cerebral artery (principal); Z51.81 Encounter for therapeutic drug level monitoring; Z79.01 Long term (current) use of anticoagulants | CPT/HCPCS: 85610 ==

== ENCOUNTER → 2024-06-25 09:48 | Outpatient (BNVA) | payer MEDICARE, MEDICAID, SELFPAY | PROVIDERS: PCP Family Medicine; Referring Provider Family Medicine; Visit Provider Family Medicine | DX: Z51.81 Encounter for therapeutic drug level monitoring (principal); Z79.01 Long term (current) use of anticoagulants; I63.531 Cerebral infarction due to unspecified occlusion or stenosis of right posterior cerebral artery | CPT/HCPCS: 85610 ==

== ENCOUNTER → 2024-07-02 09:33 | Outpatient (BNVA) | payer MEDICARE, MEDICAID, SELFPAY | PROVIDERS: PCP Family Medicine; Referring Provider Family Medicine; Visit Provider Family Medicine | DX: I63.531 Cerebral infarction due to unspecified occlusion or stenosis of right posterior cerebral artery (principal); Z51.81 Encounter for therapeutic drug level monitoring; Z79.01 Long term (current) use of anticoagulants | CPT/HCPCS: 85610 ==

== ENCOUNTER → 2024-07-09 09:43 | Outpatient (BNVA) | payer MEDICARE, MEDICAID, SELFPAY | PROVIDERS: PCP Family Medicine; Referring Provider Family Medicine; Visit Provider Family Medicine | DX: I63.531 Cerebral infarction due to unspecified occlusion or stenosis of right posterior cerebral artery (principal) | CPT/HCPCS: 85610 ==

== ENCOUNTER → 2024-07-24 12:42 | Outpatient (BNVA) | payer MEDICARE, MEDICAID, SELFPAY | PROVIDERS: PCP Family Medicine; Visit Provider Family Medicine | DX: Z51.81 Encounter for therapeutic drug level monitoring (principal); I63.531 Cerebral infarction due to unspecified occlusion or stenosis of right posterior cerebral artery; Z79.01 Long term (current) use of anticoagulants; I10 Essential (primary) hypertension; G40.209 Localization-related (focal) (partial) symptomatic epilepsy and epileptic syndromes with complex partial seizures, not intractable, without status epilepticus; E53.8 Deficiency of other specified B group vitamins | CPT/HCPCS: 85610 ==

== ENCOUNTER → 2024-08-07 11:10 | Outpatient (BNVA) | payer MEDICARE, MEDICAID, SELFPAY | PROVIDERS: PCP Family Medicine; Referring Provider Family Medicine; Visit Provider Family Medicine | DX: Z51.81 Encounter for therapeutic drug level monitoring (principal); Z79.01 Long term (current) use of anticoagulants; I63.531 Cerebral infarction due to unspecified occlusion or stenosis of right posterior cerebral artery | CPT/HCPCS: 85610 ==

== ENCOUNTER → 2024-08-23 12:04 | Outpatient (BNVA) | payer MEDICARE, MEDICAID, SELFPAY | PROVIDERS: PCP Family Medicine; Referring Provider Family Medicine; Visit Provider Family Medicine | DX: I63.531 Cerebral infarction due to unspecified occlusion or stenosis of right posterior cerebral artery (principal) | CPT/HCPCS: 85610 ==

== ENCOUNTER → 2024-09-03 09:00 | Outpatient (BNVA) | payer MEDICARE, MEDICAID, SELFPAY | PROVIDERS: Family Provider Family Medicine; PCP Family Medicine; Visit Provider Family Medicine | DX: Z51.81 Encounter for therapeutic drug level monitoring (principal); Z79.01 Long term (current) use of anticoagulants | CPT/HCPCS: 85610 ==

== ENCOUNTER → 2024-09-12 09:17 | Outpatient (BNVA) | payer MEDICARE, MEDICAID, SELFPAY | PROVIDERS: Family Provider Family Medicine; PCP Family Medicine; Visit Provider Family Medicine | DX: I63.531 Cerebral infarction due to unspecified occlusion or stenosis of right posterior cerebral artery (principal) | CPT/HCPCS: 85610 ==

== ENCOUNTER → 2024-09-24 09:18 | Outpatient (BNVA) | payer MEDICARE, MEDICAID, SELFPAY | PROVIDERS: Family Provider Family Medicine; PCP Family Medicine; Visit Provider Family Medicine | DX: I63.531 Cerebral infarction due to unspecified occlusion or stenosis of right posterior cerebral artery (principal) | CPT/HCPCS: 85610 ==

== ENCOUNTER → 2024-10-16 10:14 | Outpatient (BNVA) | payer MEDICARE, MEDICAID, OTHER, SELFPAY | PROVIDERS: PCP Family Medicine; Visit Provider Family Medicine | DX: E53.8 Deficiency of other specified B group vitamins (principal); I10 Essential (primary) hypertension; I63.531 Cerebral infarction due to unspecified occlusion or stenosis of right posterior cerebral artery | CPT/HCPCS: 80053; 80175; 82607; 83735; 85025; 85610 ==

== ENCOUNTER → 2024-10-30 09:43 | Outpatient (BNVA) | payer MEDICARE, MEDICAID, OTHER, SELFPAY | PROVIDERS: PCP Family Medicine; Referring Provider Family Medicine; Visit Provider Family Medicine | DX: I63.9 Cerebral infarction, unspecified (principal); Z51.81 Encounter for therapeutic drug level monitoring; Z79.01 Long term (current) use of anticoagulants; I63.531 Cerebral infarction due to unspecified occlusion or stenosis of right posterior cerebral artery | CPT/HCPCS: 85610 ==

== ENCOUNTER → 2024-10-31 09:10 | Outpatient (BNVA) | payer MEDICARE, MEDICAID, SELFPAY | PROVIDERS: PCP Family Medicine; Visit Provider Specialist | DX: D69.2 Other nonthrombocytopenic purpura (principal); I63.531 Cerebral infarction due to unspecified occlusion or stenosis of right posterior cerebral artery; Z51.81 Encounter for therapeutic drug level monitoring; Z79.01 Long term (current) use of anticoagulants; I63.9 Cerebral infarction, unspecified; G40.109 Localization-related (focal) (partial) symptomatic epilepsy and epileptic syndromes with simple partial seizures, not intractable, without status epilepticus; I69.398 Other sequelae of cerebral infarction; H53.9 Unspecified visual disturbance; D68.61 Antiphospholipid syndrome; F17.200 Nicotine dependence, unspecified, uncomplicated; D75.89 Other specified diseases of blood and blood-forming organs; E87.6 Hypokalemia | CPT/HCPCS: 36415; 85610; 99214 ==

== ENCOUNTER → 2024-11-05 09:19 | Outpatient (BNVA) | payer MEDICARE, MEDICAID, SELFPAY | PROVIDERS: PCP Family Medicine; Visit Provider Family Medicine | DX: I63.531 Cerebral infarction due to unspecified occlusion or stenosis of right posterior cerebral artery (principal) | CPT/HCPCS: 85610 ==

== ENCOUNTER → 2024-11-08 09:37 | Outpatient (BNVA) | payer MEDICARE, MEDICAID, SELFPAY | PROVIDERS: PCP Family Medicine; Visit Provider Family Medicine | DX: I63.9 Cerebral infarction, unspecified (principal); I63.531 Cerebral infarction due to unspecified occlusion or stenosis of right posterior cerebral artery | CPT/HCPCS: 85610 ==

== ENCOUNTER → 2024-11-11 08:48 | Outpatient (BNVA) | payer MEDICARE, MEDICAID, SELFPAY | PROVIDERS: PCP Family Medicine; Referring Provider Family Medicine; Visit Provider Family Medicine | DX: I63.531 Cerebral infarction due to unspecified occlusion or stenosis of right posterior cerebral artery (principal) | CPT/HCPCS: 85610 ==

== ENCOUNTER → 2024-11-14 08:55 | Outpatient (BNVA) | payer MEDICARE, MEDICAID, SELFPAY | PROVIDERS: PCP Family Medicine; Referring Provider Family Medicine; Visit Provider Family Medicine | DX: I63.531 Cerebral infarction due to unspecified occlusion or stenosis of right posterior cerebral artery (principal); Z51.81 Encounter for therapeutic drug level monitoring; Z79.01 Long term (current) use of anticoagulants; I63.9 Cerebral infarction, unspecified | CPT/HCPCS: 85610 ==

== ENCOUNTER → 2024-11-19 16:56 | Outpatient (BNVA) | payer MEDICARE, MEDICAID, SELFPAY | PROVIDERS: PCP Family Medicine; Referring Provider Family Medicine; Visit Provider Family Medicine | DX: I63.531 Cerebral infarction due to unspecified occlusion or stenosis of right posterior cerebral artery (principal) | CPT/HCPCS: 85610 ==

== ENCOUNTER → 2024-11-26 10:05 | Outpatient (BNVA) | payer MEDICARE, MEDICAID, SELFPAY | PROVIDERS: PCP Family Medicine; Referring Provider Family Medicine; Visit Provider Family Medicine | DX: I63.531 Cerebral infarction due to unspecified occlusion or stenosis of right posterior cerebral artery (principal) | CPT/HCPCS: 85610 ==

== ENCOUNTER → 2024-12-03 09:25 | Outpatient (BNVA) | payer MEDICARE, MEDICAID, SELFPAY | PROVIDERS: PCP Family Medicine; Referring Provider Family Medicine; Visit Provider Family Medicine | DX: Z51.81 Encounter for therapeutic drug level monitoring (principal); Z79.01 Long term (current) use of anticoagulants | CPT/HCPCS: 85610 ==

== ENCOUNTER → 2024-12-11 09:07 | Outpatient (BNVA) | payer MEDICARE, MEDICAID, SELFPAY | PROVIDERS: PCP Family Medicine; Referring Provider Family Medicine; Visit Provider Family Medicine | DX: Z51.81 Encounter for therapeutic drug level monitoring (principal); Z79.01 Long term (current) use of anticoagulants | CPT/HCPCS: 85610 ==

== ENCOUNTER → 2024-12-18 09:06 | Outpatient (BNVA) | payer MEDICARE, MEDICAID, SELFPAY | PROVIDERS: PCP Family Medicine; Visit Provider Family Medicine | DX: I63.531 Cerebral infarction due to unspecified occlusion or stenosis of right posterior cerebral artery (principal) | CPT/HCPCS: 85610 ==

== ENCOUNTER → 2024-12-25 09:37 | Outpatient (BNVA) | payer MEDICARE, MEDICAID, SELFPAY | PROVIDERS: PCP Family Medicine; Referring Provider Family Medicine; Visit Provider Family Medicine | DX: I63.531 Cerebral infarction due to unspecified occlusion or stenosis of right posterior cerebral artery (principal); I63.9 Cerebral infarction, unspecified | CPT/HCPCS: 85610 ==

== ENCOUNTER 2024-12-26 12:42 | Outpatient (CLI) | payer MEDICARE, MEDICAID, SELFPAY ==
--- NOTE | 2024-12-26 13:00 | MM_ITS ---
WS: [id number] RIGHT 3D TOMOSYNTHESIS DIGITAL MAMMOGRAPHY WITH CAD CLINICAL INFORMATION: R92.8 abnormal mammo HISTORY: 6-month follow-up COMPARISON: 2023 TECHNIQUE: 3 views of the right breast were obtained. FINDINGS: The right breast is composed of heterogeneous fibroglandular density tissue, which can limit the detection of small underlying mass lesions. Ovoid nodular densities RIGHT breast near the 12 o'clock position similar in appearance the largest measuring 1.5 cm. Ultrasound described below. ULTRASOUND BREAST RIGHT TECHNIQUE: Ultrasound right breast focused area of concern. CLINICAL INFORMATION: R92.8 abnormal mammo FINDINGS: No significant changes in the previously described cystic and complex cystic lesions. Recommend return to annual screening mammography. Largest cyst today measures approximately 1.2 x 1.4 x 1.1 cm at the 11 o'clock position 1 cm from the nipple. MM/MM diag RT tomosynthesis [id number] IMPRESSION: DENSITY: The breasts are heterogeneously dense, which may obscure small masses. BI-RADS: 2 - Benign FOLLOW UP: 1 Year Follow-up Recommend return to annual screening mammography.
--- NOTE | 2024-12-26 13:30 | US_ITS ---
WS: [id number] RIGHT 3D TOMOSYNTHESIS DIGITAL MAMMOGRAPHY WITH CAD CLINICAL INFORMATION: R92.8 abnormal mammo HISTORY: 6-month follow-up COMPARISON: 2023 TECHNIQUE: 3 views of the right breast were obtained. FINDINGS: The right breast is composed of heterogeneous fibroglandular density tissue, which can limit the detection of small underlying mass lesions. Ovoid nodular densities RIGHT breast near the 12 o'clock position similar in appearance the largest measuring 1.5 cm. Ultrasound described below. ULTRASOUND BREAST RIGHT TECHNIQUE: Ultrasound right breast focused area of concern. CLINICAL INFORMATION: R92.8 abnormal mammo FINDINGS: No significant changes in the previously described cystic and complex cystic lesions. Recommend return to annual screening mammography. Largest cyst today measures approximately 1.2 x 1.4 x 1.1 cm at the 11 o'clock position 1 cm from the nipple. US/US breast RT limited* [id number] IMPRESSION: DENSITY: The breasts are heterogeneously dense, which may obscure small masses. BI-RADS: 2 - Benign FOLLOW UP: 1 Year Follow-up Recommend return to annual screening mammography.
== END 2024-12-26 12:43 | disposition home or self-care (01) ==
LOC: RAD 12:44
PROVIDERS: PCP Family Medicine; Visit Provider Nurse Practitioner Women's Health
DX: N60.01 Solitary cyst of right breast (principal); R92.333 Mammographic heterogeneous density, bilateral breasts; N64.4 Mastodynia
CPT/HCPCS: 76642; 77061; G0279

== ENCOUNTER → 2025-01-01 09:07 | Outpatient (BNVA) | payer MEDICARE, MEDICAID, SELFPAY | PROVIDERS: PCP Family Medicine; Visit Provider Family Medicine | DX: I63.531 Cerebral infarction due to unspecified occlusion or stenosis of right posterior cerebral artery (principal) | CPT/HCPCS: 85610 ==

== ENCOUNTER → 2025-01-07 16:34 | Outpatient (BNVA) | payer MEDICARE, MEDICAID, SELFPAY | PROVIDERS: PCP Family Medicine; Visit Provider Family Medicine | DX: I63.531 Cerebral infarction due to unspecified occlusion or stenosis of right posterior cerebral artery (principal); Z51.81 Encounter for therapeutic drug level monitoring; Z79.01 Long term (current) use of anticoagulants | CPT/HCPCS: 85610 ==

== ENCOUNTER → 2025-01-09 07:55 | Outpatient (BNVA) | payer MEDICARE, MEDICAID, SELFPAY | PROVIDERS: PCP Family Medicine; Visit Provider Podiatrist Foot & Ankle Surgery | DX: L60.8 Other nail disorders (principal); L60.0 Ingrowing nail | CPT/HCPCS: 11750; 99203; J9999 ==

== ENCOUNTER → 2025-01-13 09:02 | Outpatient (BNVA) | payer MEDICARE, MEDICAID, SELFPAY | PROVIDERS: PCP Family Medicine; Visit Provider Family Medicine | DX: I63.531 Cerebral infarction due to unspecified occlusion or stenosis of right posterior cerebral artery (principal) | CPT/HCPCS: 85610 ==

== ENCOUNTER → 2025-01-16 12:47 | Outpatient (BNVA) | payer MEDICARE, MEDICAID, SELFPAY | PROVIDERS: PCP Family Medicine; Referring Provider Family Medicine; Visit Provider Family Medicine | DX: I63.531 Cerebral infarction due to unspecified occlusion or stenosis of right posterior cerebral artery (principal); Z51.81 Encounter for therapeutic drug level monitoring; Z79.01 Long term (current) use of anticoagulants | CPT/HCPCS: 85610 ==

== ENCOUNTER → 2025-01-20 09:00 | Outpatient (BNVA) | payer MEDICARE, MEDICAID, SELFPAY | PROVIDERS: PCP Family Medicine; Referring Provider Family Medicine; Visit Provider Family Medicine | DX: I63.531 Cerebral infarction due to unspecified occlusion or stenosis of right posterior cerebral artery (principal); Z51.81 Encounter for therapeutic drug level monitoring; Z79.01 Long term (current) use of anticoagulants | CPT/HCPCS: 85610 ==

== ENCOUNTER → 2025-01-23 07:55 | Outpatient (BNVA) | payer MEDICARE, MEDICAID, SELFPAY | PROVIDERS: PCP Family Medicine; Visit Provider Podiatrist Foot & Ankle Surgery | DX: Z98.890 Other specified postprocedural states (principal) | CPT/HCPCS: 99213 ==

== ENCOUNTER → 2025-01-27 09:51 | Outpatient (BNVA) | payer MEDICARE, MEDICAID, SELFPAY | PROVIDERS: PCP Family Medicine; Visit Provider Family Medicine | DX: I63.531 Cerebral infarction due to unspecified occlusion or stenosis of right posterior cerebral artery (principal) | CPT/HCPCS: 85610 ==

== ENCOUNTER → 2025-01-30 09:00 | Outpatient (BNVA) | payer MEDICARE, MEDICAID, SELFPAY | PROVIDERS: PCP Family Medicine; Visit Provider Family Medicine | DX: I63.531 Cerebral infarction due to unspecified occlusion or stenosis of right posterior cerebral artery (principal); Z51.81 Encounter for therapeutic drug level monitoring; Z79.01 Long term (current) use of anticoagulants | CPT/HCPCS: 85610 ==

== ENCOUNTER → 2025-02-04 11:30 | Outpatient (BNVA) | payer MEDICARE, MEDICAID, SELFPAY | PROVIDERS: PCP Family Medicine; Visit Provider Family Medicine | DX: Z51.81 Encounter for therapeutic drug level monitoring (principal); Z79.01 Long term (current) use of anticoagulants | CPT/HCPCS: 85610 ==

== ENCOUNTER → 2025-02-10 09:49 | Outpatient (BNVA) | payer MEDICARE, MEDICAID, SELFPAY | PROVIDERS: PCP Family Medicine; Visit Provider Family Medicine | DX: I63.9 Cerebral infarction, unspecified (principal) | CPT/HCPCS: 85610 ==

== ENCOUNTER → 2025-02-18 09:16 | Outpatient (BNVA) | payer MEDICARE, MEDICAID, SELFPAY | PROVIDERS: PCP Family Medicine; Visit Provider Family Medicine | DX: I63.531 Cerebral infarction due to unspecified occlusion or stenosis of right posterior cerebral artery (principal) | CPT/HCPCS: 85610 ==

== ENCOUNTER → 2025-02-25 09:17 | Outpatient (BNVA) | payer MEDICARE, MEDICAID, SELFPAY | PROVIDERS: PCP Family Medicine; Visit Provider Family Medicine | DX: Z51.81 Encounter for therapeutic drug level monitoring (principal); Z79.01 Long term (current) use of anticoagulants; I63.531 Cerebral infarction due to unspecified occlusion or stenosis of right posterior cerebral artery | CPT/HCPCS: 85610 ==

== ENCOUNTER → 2025-03-04 11:27 | Outpatient (BNVA) | payer MEDICARE, MEDICAID, SELFPAY | PROVIDERS: PCP Family Medicine; Visit Provider Family Medicine | DX: I63.531 Cerebral infarction due to unspecified occlusion or stenosis of right posterior cerebral artery (principal); Z51.81 Encounter for therapeutic drug level monitoring; Z79.01 Long term (current) use of anticoagulants | CPT/HCPCS: 85610 ==

== ENCOUNTER → 2025-03-11 16:08 | Outpatient (BNVA) | payer MEDICARE, MEDICAID, SELFPAY | PROVIDERS: PCP Family Medicine; Visit Provider Family Medicine | DX: Z51.81 Encounter for therapeutic drug level monitoring (principal); Z79.01 Long term (current) use of anticoagulants; I63.531 Cerebral infarction due to unspecified occlusion or stenosis of right posterior cerebral artery | CPT/HCPCS: 85610 ==

== ENCOUNTER → 2025-03-18 10:09 | Outpatient (BNVA) | payer MEDICARE, MEDICAID, SELFPAY | PROVIDERS: PCP Family Medicine; Visit Provider Family Medicine | DX: I63.531 Cerebral infarction due to unspecified occlusion or stenosis of right posterior cerebral artery (principal); Z51.81 Encounter for therapeutic drug level monitoring; Z79.01 Long term (current) use of anticoagulants; I63.9 Cerebral infarction, unspecified | CPT/HCPCS: 80053; 80061; 85610 ==

== ENCOUNTER → 2025-03-25 09:37 | Outpatient (BNVA) | payer MEDICARE, MEDICAID, SELFPAY | PROVIDERS: PCP Family Medicine; Visit Provider Family Medicine | DX: Z51.81 Encounter for therapeutic drug level monitoring (principal); Z79.01 Long term (current) use of anticoagulants | CPT/HCPCS: 85610 ==

== ENCOUNTER → 2025-03-31 10:48 | Outpatient (BNVA) | payer MEDICARE, MEDICAID, SELFPAY | PROVIDERS: PCP Family Medicine; Visit Provider Family Medicine | DX: Z51.81 Encounter for therapeutic drug level monitoring (principal); Z79.01 Long term (current) use of anticoagulants | CPT/HCPCS: 85610 ==

== ENCOUNTER → 2025-04-07 11:14 | Outpatient (BNVA) | payer MEDICARE, MEDICAID, SELFPAY | PROVIDERS: PCP Family Medicine; Visit Provider Nurse Practitioner | DX: Z51.81 Encounter for therapeutic drug level monitoring (principal); I63.531 Cerebral infarction due to unspecified occlusion or stenosis of right posterior cerebral artery; Z79.01 Long term (current) use of anticoagulants | CPT/HCPCS: 85610 ==

== ENCOUNTER → 2025-04-11 11:39 | Outpatient (BNVA) | payer MEDICARE, MEDICAID, SELFPAY | PROVIDERS: PCP Family Medicine; Referring Provider Nurse Practitioner; Visit Provider Nurse Practitioner | DX: I63.531 Cerebral infarction due to unspecified occlusion or stenosis of right posterior cerebral artery (principal); Z51.81 Encounter for therapeutic drug level monitoring; Z79.01 Long term (current) use of anticoagulants | CPT/HCPCS: 85610 ==

== ENCOUNTER → 2025-04-17 13:33 | Outpatient (BNVA) | payer MEDICARE, MEDICAID, SELFPAY | PROVIDERS: PCP Family Medicine; Visit Provider Nurse Practitioner | DX: I63.531 Cerebral infarction due to unspecified occlusion or stenosis of right posterior cerebral artery (principal); Z51.81 Encounter for therapeutic drug level monitoring; Z79.01 Long term (current) use of anticoagulants | CPT/HCPCS: 85610 ==

== ENCOUNTER → 2025-04-24 09:25 | Outpatient (BNVA) | payer MEDICARE, MEDICAID, SELFPAY | PROVIDERS: PCP Family Medicine; Referring Provider Nurse Practitioner; Visit Provider Nurse Practitioner | DX: I63.531 Cerebral infarction due to unspecified occlusion or stenosis of right posterior cerebral artery (principal) | CPT/HCPCS: 85610 ==

== ENCOUNTER → 2025-05-01 09:21 | Outpatient (BNVA) | payer MEDICARE, MEDICAID, SELFPAY | PROVIDERS: PCP Family Medicine; Visit Provider Nurse Practitioner | DX: Z51.81 Encounter for therapeutic drug level monitoring (principal); Z79.01 Long term (current) use of anticoagulants | CPT/HCPCS: 85610 ==

== ENCOUNTER → 2025-05-07 09:24 | Outpatient (BNVA) | payer MEDICARE, MEDICAID, SELFPAY | PROVIDERS: PCP Family Medicine; Referring Provider Nurse Practitioner; Visit Provider Nurse Practitioner | DX: I63.531 Cerebral infarction due to unspecified occlusion or stenosis of right posterior cerebral artery (principal) | CPT/HCPCS: 85610 ==

== ENCOUNTER → 2025-05-15 11:21 | Outpatient (BNVA) | payer MEDICARE, MEDICAID, SELFPAY | PROVIDERS: PCP Family Medicine; Referring Provider Nurse Practitioner; Visit Provider Nurse Practitioner | DX: Z51.81 Encounter for therapeutic drug level monitoring (principal); Z79.01 Long term (current) use of anticoagulants | CPT/HCPCS: 85610 ==

== ENCOUNTER → 2025-05-22 09:22 | Outpatient (BNVA) | payer MEDICARE, SELFPAY | PROVIDERS: PCP Family Medicine; Visit Provider Family Medicine | DX: Z51.81 Encounter for therapeutic drug level monitoring (principal); Z79.01 Long term (current) use of anticoagulants | CPT/HCPCS: 85610 ==

== ENCOUNTER → 2025-05-26 09:21 | Outpatient (BNVA) | payer MEDICARE, SELFPAY | PROVIDERS: PCP Family Medicine; Visit Provider Family Medicine | DX: Z51.81 Encounter for therapeutic drug level monitoring (principal); Z79.01 Long term (current) use of anticoagulants; I63.531 Cerebral infarction due to unspecified occlusion or stenosis of right posterior cerebral artery | CPT/HCPCS: 85610 ==

== ENCOUNTER → 2025-06-02 11:05 | Outpatient (BNVA) | payer MEDICARE, SELFPAY | PROVIDERS: PCP Family Medicine; Referring Provider Family Medicine; Visit Provider Family Medicine | DX: I63.531 Cerebral infarction due to unspecified occlusion or stenosis of right posterior cerebral artery (principal) | CPT/HCPCS: 85610 ==

== ENCOUNTER → 2025-06-10 09:11 | Outpatient (BNVA) | payer MEDICARE, SELFPAY | PROVIDERS: Family Provider Family Medicine; PCP Family Medicine; Visit Provider Family Medicine | DX: Z51.81 Encounter for therapeutic drug level monitoring (principal); I63.531 Cerebral infarction due to unspecified occlusion or stenosis of right posterior cerebral artery; Z79.01 Long term (current) use of anticoagulants | CPT/HCPCS: 85610 ==

== ENCOUNTER → 2025-06-17 11:17 | Outpatient (BNVA) | payer MEDICARE, SELFPAY | PROVIDERS: Family Provider Family Medicine; PCP Family Medicine; Visit Provider Family Medicine | DX: Z51.81 Encounter for therapeutic drug level monitoring (principal); I63.531 Cerebral infarction due to unspecified occlusion or stenosis of right posterior cerebral artery; Z79.01 Long term (current) use of anticoagulants | CPT/HCPCS: 85610 ==

== ENCOUNTER → 2025-06-24 09:26 | Outpatient (BNVA) | payer MEDICARE, SELFPAY | PROVIDERS: Family Provider Family Medicine; PCP Family Medicine; Visit Provider Family Medicine | DX: Z51.81 Encounter for therapeutic drug level monitoring (principal); Z79.01 Long term (current) use of anticoagulants | CPT/HCPCS: 85610 ==

== ENCOUNTER → 2025-07-01 09:06 | Outpatient (BNVA) | payer MEDICARE, SELFPAY | PROVIDERS: Family Provider Family Medicine; PCP Family Medicine; Referring Provider Family Medicine; Visit Provider Family Medicine | DX: Z51.81 Encounter for therapeutic drug level monitoring (principal); Z79.01 Long term (current) use of anticoagulants; I63.531 Cerebral infarction due to unspecified occlusion or stenosis of right posterior cerebral artery | CPT/HCPCS: 85610 ==

== ENCOUNTER → 2025-07-08 09:05 | Outpatient (BNVA) | payer MEDICARE, SELFPAY | PROVIDERS: Family Provider Family Medicine; PCP Family Medicine; Visit Provider Family Medicine | DX: Z51.81 Encounter for therapeutic drug level monitoring (principal); I63.531 Cerebral infarction due to unspecified occlusion or stenosis of right posterior cerebral artery; Z79.01 Long term (current) use of anticoagulants | CPT/HCPCS: 85610 ==